=== PATIENT | female | born 1965 | race Caucasian/White ===

== ENCOUNTER 2017-07-16 13:42 | Emergency (ER) | payer BC ==
[~2017-07-16] VITALS: Ht 162.5 cm; Wt 72.1 kg
[~2017-07-16 13:42] MED LIST: BACTRIM DS 8001 TA1 PO; DAYPRO600 M1 PO; FLEXERIL10 MG PO; KEFLEX500 MG PO; NOVOLIN 701 UNIT/0.0 SC; VICODIN 5/500 505 MG PO; VICODIN ES 7501 TAB PO
[2017-07-16 14:23] LABS: BILIRUBIN 1+ (NEGATIVE); BLOOD 2+ (NEGATIVE); CLARITY CLEAR (CLEAR); COLOR YELLOW (YELLOW); GLUCOSE 3+ (NEGATIVE); KETONE 1+ (NEGATIVE); LEUKO ESTERASE TRACE (NEGATIVE); NITRITE NEGATIVE (NEGATIVE); PH 5.5 (5.0-9.0); SPECIFIC GRAVITY 1.015 (1.005-1.030); UROBILINOGEN 0.2 E.U./dl (0.2-1.0)
[2017-07-16 14:30] LABS: WBC TNTC wbc/hpf (0-5)
[2017-07-16 14:31] LABS: BACTERIA 4+; MUCOUS TRACE
[2017-07-16 15:07] LABS: BASO # 0.1 10*3/uL (0.0-0.1); BASO % 0.5 % (0.0-1.0); EOS # 0.1 10*3/uL (0.0-0.4); HEMATOCRIT 36.5 % (37.0-47.0); HEMOGLOBIN 12.1 g/dl (12.0-16.0); LYMPH # 1.4 10*3/uL (1.3-4.4); LYMPH % 12.4 % (27.0-41.0); MEAN CELL VOLUME 88.4 fl (81.0-99.0); MEAN CORPUSCULAR HGB 29.3 pg (27.0-31.0); MEAN CORPUSCULAR HGB CONC 33.2 g/dl (33.0-37.0); MEAN PLATELET VOLUME 8.8 fl (9.6-12.3); MONO # 1.3 10*3/uL (0.1-1.0); MONO % 11.5 % (3.0-9.0); NEUT # 8.1 10*3/uL (2.3-7.9); NEUT % 74.1 % (47.0-73.0); PLATELET COUNT AUTOMATED 484 10*3/uL (130-400); RED BLOOD COUNT 4.13 10*6/uL (4.10-5.10); RED CELL DISTRI WIDTH 12.8 % (0-14.5); WHITE BLOOD COUNT 10.9 10*3/uL (4.8-10.8)
[2017-07-16 15:21] LABS: ALBUMIN 2.3 gm/dl (3.1-4.5); ALKALINE PHOSPHATASE 112 U/L (45-117); BUN 26 mg/dl (7-24); CHLORIDE 95 mmol/L (98-107); CREATININE 1.13 mg/dL (0.55-1.02); LIPASE 70 U/L (73-393); POTASSIUM 4.7 mmol/L (3.5-5.1); SGOT/AST 17 IU/L (3-35); SGPT/ALT 13 U/L (12-78); SODIUM 130 mmol/L (136-145); TOTAL PROTEIN 7.7 gm/dL (6.4-8.2)
[2017-07-16] MEDS ORDERED: JARDIANCE25 MG PO (16:18)
[2017-07-16 19:00] VITALS: BP 140/90
== END 2017-07-16 19:04 | disposition short-term general hospital (02) ==
LOC: ED 13:42
PROVIDERS: Physician Assistant
DX: N30.80 Other cystitis without hematuria (principal); N12 Tubulo-interstitial nephritis, not specified as acute or chronic; R73.9 Hyperglycemia, unspecified; Z90.710 Acquired absence of both cervix and uterus; Z98.51 Tubal ligation status; Z98.890 Other specified postprocedural states; Z79.4 Long term (current) use of insulin; Z79.899 Other long term (current) drug therapy; Z88.8 Allergy status to other drugs, medicaments and biological substances

== ENCOUNTER → 2017-09-06 | Outpatient (CLI) | payer BC ==
[~2017-09-06] MED LIST changes: +JARDIANCE25 MG PO
[2017-09-06 11:33] LABS: HEMOGLOBIN 11.4 g/dl (12.0-16.0); MEAN CELL VOLUME 90.4 fl (81.0-99.0); MEAN CORPUSCULAR HGB 29.5 pg (27.0-31.0); MEAN CORPUSCULAR HGB CONC 32.6 g/dl (33.0-37.0); MEAN PLATELET VOLUME 8.8 fl (9.6-12.3); RED BLOOD COUNT 3.87 10*6/uL (4.10-5.10); WHITE BLOOD COUNT 5.4 10*3/uL (4.8-10.8)
[2017-09-06 12:01] LABS: ALBUMIN 2.8 gm/dl (3.1-4.5); ALKALINE PHOSPHATASE 92 U/L (45-117); BUN 18 mg/dl (7-24); CHLORIDE 100 mmol/L (98-107); CHOLESTEROL 178 mg/dL (<200); CREATININE 1.08 mg/dL (0.55-1.02); HDL CHOLESTEROL 55 mg/dl (40-60); LDL CHOLESTEROL 93 mg/dL (9-159); POTASSIUM 3.8 mmol/L (3.5-5.1); SGOT/AST 14 IU/L (3-35); SGPT/ALT 22 U/L (12-78); SODIUM 140 mmol/L (136-145); TOTAL PROTEIN 6.7 gm/dL (6.4-8.2); TRIGLYCERIDES 149 mg/dl (<150); VLDL CHOLESTEROL 30 mg/dL (6-40)
== END | disposition home or self-care (01) ==
LOC: LAB 11:13
PROVIDERS: Family Medicine
DX: J44.9 Chronic obstructive pulmonary disease, unspecified (principal); I51.7 Cardiomegaly; R60.9 Edema, unspecified; I10 Essential (primary) hypertension; E11.9 Type 2 diabetes mellitus without complications

== ENCOUNTER 2018-04-27 16:52 | Inpatient (IN) | payer BC ==
[~2018-04-27] VITALS: Ht 163 cm; Wt 79.5 kg
--- NOTE | ~2018-04-27 | DS ---
[place], [place] DISCHARGE SUMMARY NAME: [id number] UNIT #: [id number] ROOM: 427 DOCTOR: IRVING MORENO MD BIRTHDATE: [birth year] DOS: 05/11/2018 DISCHARGE DIAGNOSES: 1. Nephrotic syndrome, kidney biopsy results are still pending. There was suspicion of amyloidosis. The patient to follow up with Dr. Rivera, the community product specialist. 2. Severe hypoproteinemia and severe protein-calorie malnutrition. 3. Anemia of chronic disease and kidney failure. 4. Benign essential hypertension. 5. Severe peripheral volume overload. 6. Acute exacerbation of asthma. 7. Anasarca, improved with diuresis. 8. Ulceration of the plantar right foot, treated by Podiatry, healing. 9. Benign essential hypertension. 10. Type 2 diabetes mellitus. 11. History of ulcerative colitis. 12. History of spinal stenosis. 13. History of gastroesophageal reflux disease and esophagitis. 14. History of combined systolic-diastolic type congestive heart failure with left ventricular hypertrophy. HOSPITAL COURSE: The patient presented to the Emergency Department with increased shortness of breath, severe swelling in her lower extremities going all the way up to her pelvis and lower abdomen area. The patient looked chronically sick and pale. The patient was found to be chronically anemic and had 3-4+ leg and pedal hip edema going up to the abdomen and anasarca. The patient was severely hypoproteinemic and found to have nephrotic syndrome. Kidney biopsy has been performed and we are suspecting amyloidosis, but results are not back yet. Chronic kidney disease and kidney failure with nephrotic syndrome. Being evaluated by Dr. Rivera. Combined systolic-diastolic type CHF and LVH on echocardiogram. The patient diuresed with IV Bumex, Zaroxolyn. Benign essential hypertension. The patient now on clonidine, nifedipine started by Cardiology who followed her during her stay at the hospital and blood pressures have improved. The patient with acute exacerbation of asthma treated with corticosteroids, bronchodilators and the patient was taken for bronchoscopy by Dr. Forman, the wash driller helper. The patient to be continued on bronchodilators. Type 2 diabetes mellitus with glucocorticoid-induced hyperglycemia. Blood sugars were monitored and treated. Kidney biopsy performed for nephrotic syndrome and chronic kidney failure, results are pending. Amyloidosis was suspected. The patient to follow up with her kidney doctor, Dr. Rivera. LABORATORY DATA: BUN and creatinine 59 and 1.3. Sputum cultures positive for Staphylococcus aureus sensitive to tetracycline. [place], [place] DISCHARGE SUMMARY NAME: JOSH BLAKE I UNIT #: [id number] ROOM: 427 DOCTOR: JOSH GORDON,IRVING Edge BIRTHDATE: [birth year] DISCHARGE MANAGEMENT: Potassium chloride 20 mEq b.i.d., metolazone 5 mg b.i.d., Bumex 3 mg b.i.d., nifedipine 60 mg b.i.d., clonidine 0.2 mg b.i.d., doxycycline 100 mg b.i.d. for 1 week. Uncontrolled type 2 diabetes mellitus, the patient to be treated with Lantus insulin at home and follow up with her PCP, Dr. Ric Ray and the community product specialist, Dr. Rivera within a week. More than 1 hour time was spent on patient discharge. IRVING MORENO MD CM:DISCHARG [id number] IRVING MORENO MD 05/12/18 0108 interface
--- NOTE | ~2018-04-27 | PR ---
[place], [place] PROGRESS NOTE NAME: JOSH BLAKE I UNIT #: [id number] ROOM: 427 DOCTOR: IRVING MORENO MD BIRTHDATE: [birth year] DOS: 05/09/2018 SUBJECTIVE: The patient is doing well, improving with significant diuresis with Zaroxolyn, Bumex and albumin. PHYSICAL EXAMINATION: VITAL SIGNS: Blood pressure 162/66, heart rate 80 beats per minute, breathing 20 times per minute, temperature 98.1 degrees Fahrenheit. GENERAL APPEARANCE: The patient is alert and oriented x 3, in no visible distress. Obesity and anasarca with severe peripheral volume overload below the waist. HEENT AND NECK: Exam within normal limits. CARDIOVASCULAR SYSTEM: Heart rate is regular in rate and rhythm. S1 and S2 normally audible. LUNGS: Clear to auscultation. ABDOMEN: Soft, nontender. No obvious organomegaly. Bowel sounds are present. EXTREMITIES: Without significant cyanosis or edema. IMPRESSION: 1. Severe hypoproteinemia with severe peripheral volume overload with nephrotic syndrome, kidney biopsies have been performed. The patient recommended for 3 more days of diuresis with IV Bumex, Zaroxolyn and albumin. The patient's serum electrolytes are being monitored. 2. Anemia of chronic disease and kidney failure. Hemoglobin stable at 7.9. 3. Severe hypoalbuminemia and severe protein-calorie malnutrition from nephrotic syndrome and adult failure to thrive. 4. Benign essential hypertension, being treated and controlled. 5. Ulceration of the plantar right foot, being followed by Podiatry, improving ulceration of the plantar right foot. 6. Severe peripheral volume overload, improving as mentioned above. IRVING MORENO MD CM:PNTRANS [id number] IRVING MORENO MD 05/10/18 1246 interface
--- NOTE | ~2018-04-27 | PR ---
[place], [place] PROGRESS NOTE NAME: JOSH BLAKE I UNIT #: [id number] ROOM: 427 DOCTOR: IRVING MORENO MD BIRTHDATE: [birth year] DOS: 05/04/2018 SUBJECTIVE: The patient continues to improve slowly. Still has bilateral leg swelling, some shortness of breath. PHYSICAL EXAMINATION: GENERAL APPEARANCE: The patient is alert and oriented x 3, in no visible distress. HEENT AND NECK: Exam within normal limits. CARDIOVASCULAR SYSTEM: Heart rate is regular in rate and rhythm. S1 and S2 normally audible. LUNGS: Clear to auscultation. ABDOMEN: Soft, nontender. No obvious organomegaly. Bowel sounds are present. EXTREMITIES: 3-4+ lower extremity edema, improved from before. Pitting edema starting from her hips all the way down to her toes. Generalized weakness. IMPRESSION: 1. Chronic ulceration of the plantar right foot. The patient is being ruled out for osteomyelitis by Podiatry and an MRI was ordered. 2. Nephrotic syndrome. Workup is in progress. Diuresis has not been able to get rid of the edema. The patient with 5 grams of protein in 24 hours. 3. Type 2 diabetes mellitus with glucocorticoid-induced hyperglycemia. Blood sugars have improved. 4. Severe hypoproteinemia and hypoalbuminemia, severe protein-calorie malnutrition and adult failure to thrive. We are taking bedsore precautions. 5. Acute over chronic systolic type congestive heart failure, treated with diuresis. 6. Acute episode of asthma treated with corticosteroids by Dr. Forman. 7. Benign essential hypertension. Blood pressures are being monitored, treated and better controlled now. IRVING MORENO MD CM:PNTRANS [phone] IRVING MORENO MD 05/04/181931 interface
--- NOTE | ~2018-04-27 | WRIGHTHP ---
[place], [place] PATIENT HISTORY AND PHYSICAL EXAM [id number] UNIT #: [id number] ROOM: H2001 DOCTOR: IRVING MORENO MD BIRTHDATE: [birth year] DOS: 04/27/2018 HISTORY OF PRESENT ILLNESS: The patient is a 53-year-old female with a past medical history of: 1. Congestive heart failure. 2. History of type 2 diabetes mellitus. 3. History of hypothyroidism. 4. History of ulcerative colitis. 5. History of spinal stenosis. 6. History of asthma. 7. Benign essential hypertension. 8. GERD and esophagitis. The patient presented to the Emergency Department with increasing complaints of shortness of breath, increasing swelling in her lower extremities, chills for about 2 weeks. The patient was diagnosed as having acute congestive heart failure and recommended for admission and further management. The patient is still in the Emergency Department in the process of admission. She looks very weak and chronically sick. REVIEW OF SYSTEMS: RESPIRATORY: Increasing shortness of breath. GASTROINTESTINAL: No nausea, vomiting, diarrhea constipation. CARDIOVASCULAR SYSTEM: No chest pains or palpitations. FAMILY HISTORY: Noncontributory. SOCIAL HISTORY: Denies smoking cigarettes, alcohol and drug abuse. HOME MEDICATIONS: The patient takes Jardiance.. PHYSICAL EXAMINATION: GENERAL: Awake, alert, oriented, poor historian, in no visible distress, appears chronically sick, generalized weakness, VITAL SIGNS: Blood pressure dropped from 215/105 to 160 systolic over 90 diastolic, heart rate of 79 beats per minute, breathing 19 times per minute, afebrile. HEENT AND NECK: Extraocular movements are intact. Sclerae are anicteric. Oral mucosa is moist and clean. No obvious facial weakness. Neck is supple without any lymphadenopathy. No thyromegaly. No JVD. No carotid arterial bruits. LUNGS: Clear to auscultation. No wheezing. No rhonchi. CARDIOVASCULAR SYSTEM: Heart rate is regular in rate and rhythm. S1 and S2 normally audible. No significant murmur or any other abnormal cardiac sounds. ABDOMEN: Soft, nontender. No obvious organomegaly. Bowel sounds are present. No obvious herniation. EXTREMITIES: 4+ leg and pedal edema of whole lower extremities and lower abdomen, compatible with anasarca. CENTRAL NERVOUS SYSTEM: Alert and oriented x 3. Cranial nerves II-XII are intact. Speech is normal. The patient is able to move all extremities. Normal muscle strength. Deep tendon reflexes are equal on both sides. Plantars were [place], [place] PATIENT HISTORY AND PHYSICAL EXAM NAME: [facility] [id number] UNIT #: [id number] ROOM: [facility] DOCTOR: IRVING MORENO MD BIRTHDATE: [birth year] downgoing. LABORATORY DATA: Chest x-ray is showing congestive heart failure. Hemoglobin of 11. IMPRESSION: 1. The patient with acute congestive heart failure, to be further evaluated with an echocardiogram and the patient to be diuresed with IV Bumex and serum electrolytes, BUN and creatinine to be monitored. I will consult Cardiology to follow her. 2. Severe uncontrolled hypertension. The patient to be started on Norvasc and blood pressures monitored. 3. Anasarca and severe volume overload including pleural effusions, to be treated with leg elevation and diuresis and the patient's weight to be monitored. 4. Type 2 diabetes mellitus. Blood sugar is to be monitored and treated and patient to be kept on a no concentrated sweet diet. 5. Generalized weakness and adult failure to thrive. The patient to be started on physical therapy. 6. History of hypothyroidism. I will check her thyroid functions. 7. The patient appears to be chronically sick. 8. Severe protein-calorie malnutrition with an albumin level of only 1.5. The patient to be followed by Dietary. IRVING MORENO MD CM:HISPHYS:PATIENT HISTORY AND PHYSICAL EXAMINATION 55 15 IRVING MORENO MD 04/27/181913 interface
--- NOTE | ~2018-04-27 | PR ---
[place], [place] PROGRESS NOTE NAME: [facility]H [facility]LAKE I [facility] [id number] UNIT #: [id number] ROOM: 427 DOCTOR: SINDI GABRIEL MD BIRTHDATE: [birth year] DOS: 04/29/2018 SUBJECTIVE: The patient was seen at her bedside today for followup of congestive heart failure. She is a 53-year-old woman who states that last spring 2017, she was hospitalized at the [facility] with fluid retention. She did have ureteral stents placed and removed. She was evaluated by Dr. Reece and an echocardiogram was done; however, the results of this evaluation are not yet available to me. She states that since then, she has noticed worsening swelling of her lower extremities and abdomen along with increased shortness of breath. She presented to the Emergency Room where a chest x-ray showed cardiomegaly with mild bibasilar pulmonary vascular congestion and small effusions. Lower extremity venous ultrasound study showed no evidence for DVT. The patient did have clinical signs suggesting ascites and has been diuresed since then. PHYSICAL EXAMINATION: VITAL SIGNS: Today, her pulse is 80 and regular, blood pressure is 176/71. She is afebrile. She weighs 94.5 kg and has a body mass index of 35.6. NECK: Supple. She does have jugular distention when sitting upright. Carotids are full. LUNGS: Respirations are unlabored. Chest has decreased breath sounds with scattered rales, especially at the bases. She has mild presacral edema. HEART: Has a regular rhythm with a fourth heart sound. I did not hear a third heart sound. She has grade 2/6 holosystolic murmur at the apex. There is no diastolic murmur. The PMI cannot be felt. ABDOMEN: Distended with a fluid wave present. EXTREMITIES: Showed 3-4+ edema to above the knees bilaterally. I reviewed her echocardiogram today. Left ventricular size is normal with moderate concentric left ventricular hypertrophy. She has global left ventricular hypokinesis with an estimated ejection fraction between 40 and 45%. She has stage II diastolic relaxation abnormalities. She also has evidence for pulmonary hypertension with a right ventricular systolic pressure exceeding 60 mmHg. She has a small hemodynamically insignificant pericardial effusion and ascites fluid is noted on the subcostal views of the heart. LABORATORY DATA: Her electrolytes do show some renal insufficiency with a BUN of 34, creatinine of 1.26 and estimated GFR of 44. Liver function studies have not been obtained. Her INR is normal at 1.0. She is anemic with a hemoglobin of 9.6 and a white count of 11,800, platelet count is normal at 379,000. IMPRESSION: Marked fluid overload. She does show signs of left ventricular systolic and diastolic dysfunction with moderate concentric left ventricular hypertrophy. She does have pulmonary hypertension, which is likely secondary to left ventricular dysfunction. She does not show wall motion abnormalities to suggest that this is of an ischemic origin and most likely this does represent a cardiomyopathy. For now, we will diurese her as possible. It is interesting to note that her IVC diameter is small and therefore, it may be difficult to diurese her quickly. [place], [place] PROGRESS NOTE NAME: JOSH BLAKE I UNIT #: [id number] ROOM: 427 DOCTOR: SINDI GABRIEL MD BIRTHDATE: [birth year] We will obtain a comprehensive metabolic profile to assess liver studies and her albumin level. I likely will recommend that she be transferred to a tertiary care center such as [facility] where she can be evaluated by an advanced cardiac heart failure specialist to look for such things as amyloidosis, etc. I thank Dr. Iglesias for asking our advice regarding her care. SINDI GABRIEL MD CM:PNTRANS [phone] SINDI GABRIEL MD 04/30/18 1746 interface
--- NOTE | ~2018-04-27 | PR ---
[place], [place] PROGRESS NOTE NAME: JOSH BLAKE I UNIT #: [id number] ROOM: 427 DOCTOR: HONG RUIZ MD BIRTHDATE: [birth year] DOS: SUBJECTIVE: The patient is sitting up in bed, mildly short of breath. States that she is urinating, but not much. Denies having any chest pains or palpitations. OBJECTIVE: VITAL SIGNS: Blood pressure is 142/65, pulse of 77, respirations 18, temperature 97.5. LUNGS: Diminished breath sounds. HEART: Regular. ABDOMEN: Obese with anasarca extending all the way to the abdominal wall. EXTREMITIES: Again, significantly swollen, 3 to 4+ edema. ASSESSMENT AND PLAN: 1. The patient with proteinuria and hypoalbuminemia, most likely nephrotic syndrome. Workup is ordered including a renal biopsy on Friday. 2. Benign hypertension controlled with normal systolic function. 3. Patchy consolidation of left lower lobe as well as left upper lobe, add antibiotics. 4. Type 2 diabetes mellitus, non-insulin dependent. Blood sugars in the 500s. We will discontinue IV steroids and place her on coverage scale and we will convert the Lantus in the morning. HONG RUIZ MD CM:PNTRANS [id number] HONG RUIZ MD 05/03/18 0537 interface
--- NOTE | ~2018-04-27 | PR ---
[place], [place] PROGRESS NOTE NAME: JOSH BLAKE I UNIT #: [id number] ROOM: 427 DOCTOR: WILLOW PERKINS MDSHAISTA BIRTHDATE: [birth year] DOS: 05/01/2018 SUBJECTIVE: She has been noted reduction in symptoms of shortness of breath from yesterday. The coughing, which has been noted nonproductive also seem to be decreased. Denies symptoms of chest pain, fever or chills. The patient has been getting intravenous cefepime with diuretics. She has been noted severe hypoalbuminemia and also with the diagnosis of nephrotic syndrome. The patient per Nephrology services consultation. The patient was not noted any symptoms of chest pain. Denies abdominal pain, nausea or vomiting. She was comfortably sitting on the bed. Edema of the lower extremities remains persistent, at this time and severe. Denies any headache or diplopia. Remaining systems were reviewed. They were noted all negative. OBJECTIVE: GENERAL: The patient has been currently sitting on the side of the bed without acute distress this morning of assessment. VITAL SIGNS: For the patient recorded a normal temperature, respiratory rate 18, heart rate of 97-86, blood pressure was noted ranging between 176/83-180/88. Intake was recorded as a 1090 mL and output 550 mL. The pulse oxygen saturation on room air 93% saturation. HEENT: Examination shows head was atraumatic. Eyes nonicterus. NECK: Supple. CARDIOVASCULAR: S1, S2 is audible. LUNGS: The patient was noted with decreased breaths in the lungs with improvement in the wheezing from yesterday. ABDOMEN: Soft, nontender. Bowel sounds present. EXTREMITIES: Noted with persistent edema. VISIBLE SKIN: No lesions or rashes. MUSCULOSKELETAL: Without any acute deformities. CENTRAL NERVOUS SYSTEM: Cranial nerves 2-12 intact. LABORATORY DATA: No labs were done today. CT scan of the chest that was done with oral contrast yesterday. The patient was reviewed, shows evidence of severe anasarca noted. Evidence of small pleural fluid noted bilaterally larger on the right, which could be mild to moderate in the left. Area of compression atelectasis. There was no evidence of pulmonary area of consolidation; however, interstitial infiltration noted of the left lingula and the left upper lobe. Abdominal and pelvic CAT scan for the patient was reported without any acute intraabdominal pathologies. There was no pathological lymph node enlargement and the abdomen was seen. IMPRESSION: 1. The patient anasarca, bilateral pleural fluid, interstitial edema. 2. Acute exacerbation of bronchial asthma, nonproductive cough. 3. Pneumonia, appeared to be less likely. The patient current assessment, the patient at presentation. PLAN OF TREATMENT: The patient would be continued on the diuretic and albumin supplementation. The patient per Nephrology services follow the recommendation for the medical anasarca and congestive heart failure. Continue current dose of [place], [place] PROGRESS NOTE NAME: JOSH BLAKE I UNIT #: [id number] ROOM: 427 DOCTOR: WILLOW PERKINS MD,SHAISTA BIRTHDATE: [birth year] Solu-Medrol and bronchodilators. Other supportive therapy, plan of management care for patient with additional treatment changes will be done based on progression of the illness. Pleural fluid will be monitored. Thoracentesis not indicated will need to be done at the present time. Monitor the pleural fluid will be continued. Assessment and management for 2 days and yesterday, the patient was discussed with Dr. Iglesias personally. SHAISTA DAUGHERTY MD CM:PNTRANS [phone] SHAISTA PERKINS MD 05/01/18 1550 interface
--- NOTE | ~2018-04-27 | PR ---
[place], [place] PROGRESS NOTE NAME: JOSH BLAKE I UNIT #: [id number] ROOM: 427 DOCTOR: SINDI GABRIEL MD BIRTHDATE: [birth year] DOS: 05/04/2018 SUBJECTIVE: The patient was seen at her bedside today, 05/04/2018, for followup of her fluid overload state. She has biochemical evidence for nephrotic syndrome and this is likely the cause of her overall clinical appearance. The cause of her nephrosis is not yet known, but may be diabetic in origin. Other causes such as membranous nephropathy or possibly amyloid are being considered. The patient is pending a kidney biopsy, which is scheduled for tomorrow. PHYSICAL EXAMINATION: VITAL SIGNS: On exam today, her pulse is 78 and regular, blood pressure is 135/69. She is afebrile. She weighs 100.9 kg and has a body mass index of 38. NECK: Supple. She has minimal jugular distention with hepatojugular reflux. Carotids are full. LUNGS: Respirations are unlabored. She has decreased breath sounds at the bases, but no wheezes or rales. HEART: Regular rhythm with an S4 gallop, but no S3. ABDOMEN: Distended with a fluid wave. EXTREMITIES: Showed 3 to 4+ edema to above the knees. LABORATORY DATA: Sodium is 139, potassium 4.4, BUN 66, creatinine 2.09. Serologies are pending. IMPRESSION: 1. Massive fluid overload, most likely due to nephrotic syndrome. 2. Left ventricular hypertrophy with systolic and diastolic dysfunction associated with pulmonary hypertension. 3. Diabetes mellitus. PLAN: We will continue to follow the patient intermittently as the web assistant guides her diuresis and as we await the results of her kidney biopsy. As noted previously, her cardiac findings may be explained by amyloidosis and that may be the unifying diagnosis here. I thank Dr. Iglesias for asking our advice regarding her care. [place], [place] PROGRESS NOTE NAME: JOSH BLAKE I UNIT #: [id number] ROOM: 427 DOCTOR: SINDI GABRIEL MD BIRTHDATE: [birth year] SINDI GABRIEL MD CM:PNTRANS [id number] SINDI GABRIEL MD 05/05/18 1357 interface
--- NOTE | ~2018-04-27 | PR ---
[place], [place] PROGRESS NOTE NAME: JOSH BLAKE I UNIT #: [id number] ROOM: 427 DOCTOR: JOSH GORDON,IRVING Edge BIRTHDATE: [birth year] DOS: 05/07/2018 SUBJECTIVE: The patient with very slow improvement in her weakness. VITAL SIGNS: Blood pressure 144/54, breathing normally, afebrile, heart rate of 77 beats per minute. IMPRESSION: 1. The patient is status post kidney biopsy, getting worked up for nephrotic syndrome. She is LUIS negative. 2. Severe peripheral volume overload, hypoproteinemia and anasarca with 3 to 4+ edema below hips and lower extremities with very slow improvement with treatment and diuresis. The patient also has bilateral pleural effusions. 3. Acute exacerbation of asthma. The patient going for bronchoscopy by Dr. Forman. 4. Nephrotic syndrome with proteinuria and hypoalbuminemia. 5. Severe protein calorie malnutrition. 6. Ulceration of the plantar right foot, being followed by Podiatry, status post debridement. 7. Left ventricular hypertrophy with systolic/diastolic type combined acute over chronic congestive heart failure and pulmonary hypertension. 8. Benign essential hypertension, blood pressures being monitored, treated and controlled. IRVING MORENO MD CM:PNTRANS [id number] IRVING MORENO MD 05/08/18 0505 interface
--- NOTE | ~2018-04-27 | PR ---
[place], [place] PROGRESS NOTE NAME: JOSH BLAKE I UNIT #: [id number] ROOM: 427 DOCTOR: WILLOW PERKINS MD,SHAISTA BIRTHDATE: [birth year] DOS: 05/09/2018 PULMONARY PROGRESS NOTE SUBJECTIVE: She has been still noted coughing with intermittent sputum expectoration. She has been assessed and has a sputum culture done, which shows MSSA. She has not been noted symptoms of fever or chills. Denies symptoms of hemoptysis. The edema of the lower extremity is resolving. There were no skin lesions or rashes reported. Denies symptoms of headache. General weakness and fatigue were noted. The remaining systems reviewed were noted all negative. OBJECTIVE: VITAL SIGNS: Which have been recorded showed the temperature noted normal, respiratory rate of 16, heart rate 85, blood pressure 139/58. Pulse oxygen saturation on room air at rest was 91% saturation. HEENT: No acute change. NECK: Supple. CARDIOVASCULAR: S1 and S2 audible. LUNGS: Without any wheezing or crackles. ABDOMEN: Soft, nontender, obese. EXTREMITIES: The patient was noted with edema of the lower extremities, which has been gradually resolving. There were no cyanosis or clubbing. VISIBLE SKIN: No lesions or rashes. MUSCULOSKELETAL: Without any acute deformities. CENTRAL NERVOUS SYSTEM: Cranial nerves 2-12 intact. LABORATORY DATA: The culture of the sputum for the patient has been noted with findings of Staph aureus, which was noted with moderate amount as MSSA species. BMP today, BUN 62, creatinine 1.34, glucose 294. CBC this morning, WBC count was normal, hemoglobin 7.9, hematocrit 25.2. Negative fluid balance 8785 mL was noted. IMPRESSION: 1. The patient with progressive resolution of anasarca, on current intravenous Bumex drip. 2. Acute bronchitis with methicillin-susceptible Staphylococcus aureus. 3. The patient with bronchial asthma exacerbation, which has been noted stable. PLAN OF TREATMENT: Starting the patient on oral doxycycline for the current medical management of acute tracheobronchitis with MSSA. Continue other therapy, plan of management, care plan and treatment. Additional treatment changes will be recommended based on progression of the illness. [place], [place] PROGRESS NOTE NAME: JOSH BLAKE I UNIT #: [id number] ROOM: 427 DOCTOR: SHAISTA CLARK MD BIRTHDATE: [birth year] SHAISTA DAUGHERTY MD CM:ASHVIN [id number] SHAISTA PERKINS MD 05/10/18 0031 interface
--- NOTE | ~2018-04-27 | PR ---
[place], [place] PROGRESS NOTE NAME: JOSH BLAKE I UNIT #: [id number] ROOM: 427 DOCTOR: KATHERINE KUMAR DPM BIRTHDATE: [birth year] DOS: 05/08/2018 SUBJECTIVE: This patient is seen today for followup of right foot ulcer. She has no complaints of pain from her foot. She is still in the hospital because of volume overload. OBJECTIVE: Neurovascular status is unchanged. Small ulceration present plantar second metatarsal head, right foot that is getting smaller and has no signs of infection. No surrounding edema or erythema. No purulent drainage or malodor. Overall improvement in the ulceration noted without infection. ASSESSMENT: Improving ulceration, plantar right foot. PLAN: Evaluation and management. Continue with local wound care and offloading. Continue monitoring the foot. Continue to follow up the patient while she is in the hospital. KATHERINE KUMAR DPM CM:PNSHAHIDA [id number] KATHERINE KUMAR DPM 05/08/18 1217 interface
--- NOTE | ~2018-04-27 | PR ---
[place], [place] PROGRESS NOTE NAME: JOSH BLAKE I UNIT #: [id number] ROOM: 427 DOCTOR: HONG RUIZ MD BIRTHDATE: [birth year] DOS: SUBJECTIVE: The patient states that she has some nasal congestion. Otherwise, she feels fairly well. She thinks that her legs look a little bit better this morning. OBJECTIVE: VITAL SIGNS: Graphic trend shows a pressure of 136/62, pulse of 77, respirations 18, temperature 97.9. LUNGS: Diminished breath sounds. No wheezes, rales or rhonchi heard. HEART: Regular. ABDOMEN: Obese with significant anasarca noted, but there is some minimal improvement from yesterday. LABORATORY DATA: Blood culture shows no bacterial growth. ASSESSMENT AND PLAN: 1. Nephrotic syndrome. Workup is still in progress. The patient was given Bumex drip, which did not really do much. Urine protein 24-hour, she had a 5 gram protein output. 2. Type 2 diabetes mellitus, poorly controlled. Meds were adjusted and the blood sugars are much improved today. 3. Upper respiratory infection. A Flonase nasal spray will be started. HONG RUIZ MD CM:PNTRANS [phone] HONG RUIZ MD 05/04/18 0130 interface
--- NOTE | ~2018-04-27 | PR ---
[place], [place] PROGRESS NOTE NAME: JOSH BLAKE I UNIT #: [id number] ROOM: 427 DOCTOR: IRVING MORENO MD BIRTHDATE: [birth year] DOS: 05/05/2018 SUBJECTIVE: The patient continues to feel better, but she still has generalized weakness. OBJECTIVE: GENERAL APPEARANCE: The patient is alert and oriented x 3, in no visible distress. VITAL SIGNS: Blood pressure 156/79, breathing 20 times per minute, afebrile, heart rate of 93 beats per minute. HEENT AND NECK: Exam within normal limits. CARDIOVASCULAR SYSTEM: Heart rate is regular in rate and rhythm. S1 and S2 normally audible. LUNGS: Clear to auscultation. ABDOMEN: Soft, nontender. No obvious organomegaly. Bowel sounds are present. EXTREMITIES: 3-4+ leg and pedal edema below the hips, which is chronic for her and generalized weakness, right foot wounds. IMPRESSION: 1. Ulceration of the plantar right foot, being followed by Podiatry and treated. MRI of the right foot showed no osteomyelitis. 2. Nephrotic syndrome, workup in progress. The patient has significant proteinuria. 3. Anasarca and severe peripheral volume overload secondary to severe hypoproteinemia, severe protein-calorie malnutrition. The patient is being diuresed and receiving intravenous albumin by Nephrology, Dr. Rivera. 4. Acute episode of bronchial asthma and treated by Dr. Forman with corticosteroids, which caused some hyperglycemia. 5. Benign essential hypertension, being monitored and treated. 6. Severe protein-calorie malnutrition secondary to nephrotic syndrome. 7. Type 2 diabetes mellitus. Blood sugars elevated secondary to corticosteroids. 8. Chronic kidney disease, stage 3A. 9. Left ventricular hypertrophy with systolic and diastolic type chronic congestive heart failure along with pulmonary hypertension. [place], [place] PROGRESS NOTE NAME: JOSH BLAKE I UNIT #: [id number] ROOM: 427 DOCTOR: IRVING MORENO MD BIRTHDATE: [birth year] IRVING MORENO MD CM:PNTRANS [id number] [phone] IRVING MORENO MD 05/06/18 1506 interface
--- NOTE | ~2018-04-27 | PR ---
[place], [place] PROGRESS NOTE NAME: JOSH BLAKE I UNIT #: [id number] ROOM: 427 DOCTOR: WILLOW PERKINS MD,SHAISTA BIRTHDATE: [birth year] DOS: 05/03/2018 PULMONARY PROGRESS NOTE SUBJECTIVE: The patient was noted comfortable at this time, complaining of some nasal congestion. Denies symptoms of chest pain. Shortness of breath is noted to be improving. The cough has been noted mild to moderate and nonproductive. There were no symptoms of chest pain. Edema of the extremities is noted still present with partial reduction. OBJECTIVE: VITAL SIGNS: Normal temperature, respiratory rate 18, heart rate 77, blood pressure 136/62 this afternoon. The pulse oxygen saturation was 97% on room air. HEENT: No acute change. CARDIOVASCULAR: S1 and S2 audible. LUNGS: Noted clear of any wheezing today. ABDOMEN: Soft, obese. EXTREMITIES: Shows severe edema. LABORATORY DATA: BMP this morning, BUN 66, creatinine 2.09, glucose 206. IMPRESSION: 1. Anasarca picture with significant peripheral edema, predominantly in the lower portion of the body, abdominal wall and lower extremities. 2. Bronchial asthma with acute exacerbation, improving. PLAN OF MANAGEMENT: No changes from the pulmonary standpoint. Continue with the current therapy at this time as in progress. Monitor respiratory status. Diuresis and other therapy per Nephrology services. Continue Pulmicort Respules and bronchodilators for medical management of bronchial asthma at this time. SHAISTA DAUGHERTY MD CM:PNTRANS [id number] SHAISTA PERKINS MD 05/03/18 3178 interface
--- NOTE | ~2018-04-27 | CON ---
[place], [place] REPORT OF CONSULTATION NAME: JOSH BLAKE I UNIT #: [id number] ROOM: 427 DOCTOR: ALVIN COULTER MD BIRTHDATE: [birth year] DOS: 04/28/2018 CARDIOLOGY CONSULTATION REASON FOR CONSULTATION: CHF. HISTORY OF PRESENT ILLNESS: The patient is a 53-year-old patient with history of diabetes, asthma, hypertension, was presented to the Emergency Room for progressive shortness of breath as well as edema of the feet for the past few weeks. The patient stated that she gained about 50 pounds in the past couple of months. She was treated for heart failure in August 2016 when the patient had some kidney stones at that time. The patient denies any chest pain or palpitations. No dizziness, no PND, no orthopnea. No nausea, vomiting or diarrhea. No fever and chills. No headache. No tingling, numbness or weakness. No bladder or bowel symptoms. No double vision. REVIEW OF SYSTEMS: Review of the 10 system negative except as mentioned above. PAST MEDICAL HISTORY: 1. Hypertension. 2. Diabetes type 2. 3. Hypothyroidism. 4. Ulcerative colitis. 5. Spinal stenosis. 6. Acid reflux. 7. History of kidney stones. SURGICAL HISTORY: History of ureteral stent. SOCIAL HISTORY: The patient does not smoke or drink, does not use drugs. FAMILY HISTORY: Noncontributory. HOME MEDICATIONS: Reviewed. PHYSICAL EXAMINATION: VITAL SIGNS: Blood pressure 180/80, pulse 87, respiration 20, weight 207 pounds, BMI 35.4. GENERAL: Alert, comfortable. The patient in mild short of breath. HEAD AND NECK: Pupils are round and equal, no jaundice. Tongue was moist and pharynx was clear. NECK: Supple, no distended neck veins, no carotid bruit. CHEST: Symmetrical, nontender. LUNGS: A few scattered rhonchi and slightly diminished at bases. HEART: Regular rhythm, no S3. Grade 1/6 systolic murmur. ABDOMEN: Benign, nontender. Bowel sounds normal. EXTREMITIES: Showed 1-2+ pitting edema and distal pulses are palpable. SKIN: Warm and dry. No cyanosis, no clubbing. RECTAL: Deferred. GENITOURINARY: Deferred. [place], [place] REPORT OF CONSULTATION NAME: JOSH BLAKE I UNIT #: [id number] ROOM: 427 DOCTOR: MARYLIN GORDON,ALVIN BIRTHDATE: [birth year] NEUROLOGIC: The patient is alert and oriented. No focal neurologic deficit. REVIEW OF THE DIAGNOSTIC TESTS: EKG, labs and imaging studies reviewed. EKG normal sinus rhythm with LV hypertrophy. The pertinent labs including albumin 1.5; wbc count 11,800, hemoglobin 9.6, platelet 379,000; potassium 3.7, BUN 31, creatinine 1.1. IMPRESSION: 1. Acute on chronic heart failure, positive diastolic heart failure. 2. Poorly controlled hypertension. 3. Non-morbid obesity. 4. Diabetes type 2. 5. History of acid reflux. 6. Anemia. 7. Hypoalbuminemia. 8. Chronic kidney disease. 9. Generalized weakness. 10. Anasarca. RECOMMENDATIONS: 1. Continue IV Bumex and monitor daily weights and ins and outs as well as renal function. 2. If required, increase the amlodipine for blood pressure control. 3. The patient had some cardiac testing done. We will try to obtain those reports tomorrow from [facility]. 4. The compliance of medications and diet was discussed with her. 5. Further recommendation based on her symptoms and her recent cardiac testing. ALVIN COULTER MD CM:CONSTR:REPORT OF CONSULTATION [id number] 06/09/18 0904 interface
--- NOTE | ~2018-04-27 | PR ---
[place], [place] PROGRESS NOTE NAME: JOSH BLAKE I UNIT #: [id number] ROOM: 427 DOCTOR: IRVING MORENO MD BIRTHDATE: [birth year] DOS: 05/08/2018 SUBJECTIVE: The patient has severe peripheral volume overload. OBJECTIVE: GENERAL APPEARANCE: The patient is alert and oriented x 3, in no visible distress. VITAL SIGNS: Blood pressure 137/53, heart rate 79 beats per minute, breathing 18 times per minute, temperature 98 degrees Fahrenheit. HEENT AND NECK: Exam within normal limits. CARDIOVASCULAR SYSTEM: Heart rate is regular in rate and rhythm. S1 and S2 normally audible. LUNGS: Clear to auscultation. ABDOMEN: Soft, nontender. No obvious organomegaly. Bowel sounds are present. EXTREMITIES: Obesity and severe peripheral volume overload with edema extending from the hip down, 3-4+ slowly improving. IMPRESSION AND PLAN: 1. The patient has severe peripheral volume overload, hypoproteinemia, left ventricular hypertrophy with both systolic and diastolic type dysfunction and pulmonary hypertension. She is being diuresed with albumin and IV Bumex along with metolazone now. 2. Nephrotic syndrome and chronic kidney disease. BUN and creatinine of 68 and 1.3. Normal serum electrolytes. The patient is being followed by Nephrology. 3. Anemia with hemoglobin of 8. 4. Severe hypoalbuminemia and hypoproteinemia with advanced protein-calorie malnutrition related to nephrotic syndrome. Overall poor health. 5. Benign essential hypertension. Blood pressure is monitored, treated and controlled and they are staying normal now. 6. Ulceration of the plantar right foot debrided by Podiatry and is being followed. 7. Serology workup on her nephrotic syndrome was negative. Biopsy results are still pending. [place], [place] PROGRESS NOTE NAME: JOSH BLAKE I UNIT #: [id number] ROOM: 427 DOCTOR: IRVING MORENO MD BIRTHDATE: [birth year] IRVING MORENO MD CM:PNTRANS IRVING MORENO MD 05/08/18 1000 interface
--- NOTE | ~2018-04-27 | PR ---
[place], [place] PROGRESS NOTE NAME: JOSH BLAKE I UNIT #: [id number] ROOM: 427 DOCTOR: WILLOW PERKINS MD,SHAISTA BIRTHDATE: [birth year] DOS: 05/07/2018 SUBJECTIVE: The patient remains comfortable at this time. She has a biopsy of the kidney done yesterday for further assessment and current kidney disease. She has been noted with symptoms of chest pain. Cough has been noted intermittently with small amount of sputum expectoration. Continue Mucinex and flutter valve use. Denies any acute shortness of breath at rest. OBJECTIVE: VITAL SIGNS: Normal temperature, respiratory rate 20, heart rate 84, blood pressure 144/54. The pulse oxygen saturation on room air 91% saturation. HEENT: No acute change. NECK: Supple. CARDIOVASCULAR: S1, S2 audible. LUNGS: The patient was noted without any wheezing or crackles at the present time. ABDOMEN: Soft, nontender, bowel sounds present. LABORATORY DATA: BMP this morning, BUN 69, creatinine 1.30. CBC this morning, WBC count 12.6, hemoglobin 7.8. IMPRESSION: 1. The patient with acute bronchitis with resolving acute bronchial asthma exacerbation. 2. Pleural fluid with anasarca as well. PLAN OF THERAPY: Follow up the results of the sputum culture. The patient has been noted negative for last 24 hours and follow the recommendation by the Nephrology services. SHAISTA DAUGHERTY MD CM:PNTRANS [phone] SHAISTA PERKINS MD 06/09/18 0908 interface
--- NOTE | ~2018-04-27 | EKG ---
[place], [place] ELECTROCARDIOGRAM REPORT NAME: JOSH BLAKE I UNIT #: [id number] ROOM: 427 DOCTOR: ANNIE DRAFT REPORT BIRTHDATE: [birth year] [facility] Test Date: 2018-04-27 Test Time: 17:23:17 Pat Name: JOSH BLAKE Department: Room: 427 Gender: F Wic Site Coordinator: MICHELINE : 1965 Requested By: TESFAYE CASTELLANO Order Number: [id number] Reading MD: Anna Irizarry MD Measurements Intervals Hulen Rate: 82 P: 62 ND: 146 QRS: -7 QRSD: 110 T: 44 QT: 422 QTc: 493 Interpretive Statements Sinus rhythm Left ventricular hypertrophy Borderline prolonged QT interval Baseline wander in lead(s) V2 Electronically Signed On 04-28-2018 11:52:53 PST by Anna Irizarry MD CM:EKGRPT:ELECTROCARDIOGRAM REPORT [id number] TESFAYE CASTELLANO EPIPHANY DRAFT REPORT TESFAYE CASTELLANO
--- NOTE | ~2018-04-27 | PR ---
[place], [place] PROGRESS NOTE NAME: JOSH BLAKE I UNIT #: [id number] ROOM: 427 DOCTOR: SHAISTA CLARK MD BIRTHDATE: [birth year] DOS: 05/04/2018 PULMONARY PROGRESS NOTE SUBJECTIVE: She has been noted comfortable at this time, resting with partial reduction of edema of the lower extremities was noted. Denies symptoms of chest pain. Cough has been noted more productive at the present time and she has been noted without much sputum expectoration most of the time. She denies symptoms of wheezing. Denies symptoms of chest pain. OBJECTIVE: VITAL SIGNS: Which have been recorded shows normal temperature, respiratory rate of 20, heart rate of 63, blood pressure 130/57. Pulse oxygen saturation recorded as 97% saturation at rest on room air. HEENT: Shows head was atraumatic, eyes nonicterus. NECK: Supple. LUNGS: Decreased breath sounds in the lungs bilaterally without any wheezing this morning. ABDOMEN: Seen with obesity and anasarca picture. EXTREMITIES: Still show significant severe edema of bilateral lower extremities. IMPRESSION: 1. Peripheral edema with anasarca with congestive heart failure, diastolic dysfunction. 2. The patient with resolving bronchial asthma. 3. Current chest congestion with coughing, but there was no sputum expectoration. PLAN OF TREATMENT: Start the patient on doxycycline at ____ mg p.o. b.i.d. and also flutter valve use. Sputum for Gram stain culture was ordered. Chest x-ray will be repeated as tolerated to assess for interval development of any new problems. [place], [place] PROGRESS NOTE NAME: JOSH BLAKE I UNIT #: [id number] ROOM: 427 DOCTOR: SHAISTA CLARK MD BIRTHDATE: [birth year] SHAISTA DAUGHERTY MD CM:PNTRANS [id number] SHAISTA PERKINS MD 05/04/18 4096 interface
--- NOTE | ~2018-04-27 | PR ---
[place], [place] PROGRESS NOTE NAME: JOSH BLAKE I UNIT #: [id number] ROOM: 427 DOCTOR: WILLOW PERKINS MD,SHAISTA BIRTHDATE: [birth year] DOS: 05/11/2018 SUBJECTIVE: The patient was still reporting coughing, which has been noted intermittent at times, nonproductive, but not noted any worse than previously. Denies symptoms of chest pain. The patient denies symptoms of shortness of breath was continued on diuretic therapy has been noted effective to reduce the anasarca and congestion and edema of the extremities. OBJECTIVE: VITAL SIGNS: For the patient, which have been recorded showed the temperature was noted as normal. The respiratory rate is 16, heart rate of 88, blood pressure 162/84, and pulse oxygen saturation recorded on room air 91-92% saturation of oxygen. HEENT: Examination shows head was atraumatic. Eyes nonicterus. CARDIOVASCULAR: S1, S2 is audible. LUNGS: Clear. ABDOMEN: Soft. EXTREMITIES: The patient was noted resolving edema with the resolution noted incomplete, but marked improvement continued with the edema resolution. IMPRESSION: 1. Resolving anasarca with peripheral edema, congestive heart failure. 2. Resolving acute bronchitis with Staphylococcus aureus. 3. Improving acute exacerbation of bronchial asthma. PLAN OF MANAGEMENT: No changes in plan of care at this time. Continue the patient's current therapy as previously. Usual care, other supportive plan of management care and therapies. SHAISTA DAUGHERTY MD CM:ASHVIN [phone] SHAISTA PERKINS MD 05/11/18 2241 interface
--- NOTE | ~2018-04-27 | PR ---
[place], [place] PROGRESS NOTE NAME: [facility]LAKE I [id number] UNIT #: [id number] ROOM: 427 DOCTOR: SINDI GABRIEL MD BIRTHDATE: [birth year] DOS: SUBJECTIVE: The patient was seen at her bedside today on 04/30/2018 for followup of her marked total body fluid overload. She is diuresing very slowly. In the last 24 hours, I and O indicates that her fluid balance is negative 200 mL and since she has been hospitalized, she has only lost about 0.5 kilogram. Despite this, her BUN and creatinine levels are rising. On admission, her BUN was 31 and is now 35. Her creatinine was 1.1 and is now 1.33. The patient still feels weak and breathless. She still complains of swelling in her arms, legs and abdomen as well as in her left breast. She does admit that she tends to lay on her left side. PHYSICAL EXAMINATION: VITAL SIGNS: Today, her pulse is 77 and regular, blood pressure is 170/88. She is afebrile. She weighs 93.6 kilograms. NECK: Supple. She has no jugular distention. She does have mild hepatojugular reflux. Carotids are full. LUNGS: Respirations are unlabored. She has decreased breath sounds with few rales at the bases bilaterally. HEART: Has a regular rhythm. She has a fourth heart sound. I could not hear a third heart sound. The PMI is not displaced. ABDOMEN: Distended with a fluid wave. EXTREMITIES: Showed 3+ to 4+ edema above the knees. LABORATORY DATA: Urinalysis does show that she has 3+ proteinuria. Complete metabolic profile today shows that her total bilirubin is low at 0.1. SGOT, SGPT and alkaline phosphatase are all normal; however, her total protein and albumin are both low at 6.1 and 1.3 respectively. Her echocardiogram done yesterday does show normal left ventricular size with moderate concentric left ventricular hypertrophy. She has global left ventricular hypokinesis with an estimated ejection fraction of about 40-45%. She has grade 2 diastolic dysfunction. She also has Doppler evidence for severe pulmonary hypertension. Right ventricular systolic pressure is over 60 mmHg. Her right ventricle does appear to be normal in size with thickening of the right ventricular free wall. Right ventricular function appears to be impaired. She does show a small pericardial effusion and ascites on the echocardiogram. IMPRESSION: 1. Total body fluid overload with ascites and peripheral edema along with small pleural effusions and a small pericardial effusion. 2. Marked proteinuria suggesting the possibility of nephrotic syndrome. 3. Hypoalbuminemia. 4. Pulmonary hypertension. I think that one of her big problems is likely to be nephrotic syndrome, which has resulted in severe hypertension and possibly hypertensive heart disease. PLAN: For now, we will continue her diuresis, but check a 24-hour urine for [place], [place] PROGRESS NOTE NAME: JOSH BLAKE I UNIT #: [id number] ROOM: 427 DOCTOR: SINDI GABRIEL MD BIRTHDATE: [birth year] protein and creatinine along with a renal ultrasound. I think that nephrology opinion would be very helpful in her ongoing management as well. If control of her blood pressure does not result in improvement of her ascites and pulmonary hypertension, she may require evaluation by the advanced heart failure specialist and right heart catheterization as well, but this would be a future goal. I thank Dr. Iglesias for asking our advice regarding the patient's care. SINDI GABRIEL MD CM:ASHVIN [id number] SINDI GABRIEL MD 05/01/18 0541 interface
--- NOTE | ~2018-04-27 | PR ---
[place], [place] [id number] UN[facility] #: [id number] ROOM: 427 DOCTOR: SINDI GABRIEL MD BIRTHDATE: [birth year] DOS: 05/01/2018 CARDIOLOGY PROGRESS NOTE SUBJECTIVE: The patient was seen at her bedside today, 05/01/2018, for followup of fluid retention and an abnormal echocardiogram. I did discuss her case today with Dr. Rivera. The patient does have severe proteinuria and hypoalbuminemia. This is very likely to be due to nephrotic syndrome. As discussed with Dr. Rivera, the most common causes for this would be either intrinsic renal disease or diabetic nephropathy. When I reviewed her echocardiogram, she did have left ventricular systolic and diastolic dysfunction with left ventricular hypertrophy along with pulmonary hypertension. I wonder if amyloidosis may also present in this fashion. The patient is diuresing very slowly and remains massively fluid overloaded. She denies any chest pain, but is still dyspneic with minor exertion. She does give an interesting history of severe orthostatic hypotension, which has been present for several years, but recently improved. Her orthostatic hypotension may have improved with the hypertension and fluid retention that she has experienced with her nephrotic syndrome. PHYSICAL EXAMINATION: VITAL SIGNS: Her pulse is 97 and regular, blood pressure is 180/88. She is afebrile. NECK: Supple. She does have mild jugular distention to the mid neck with hepatojugular reflux. Carotids are full. LUNGS: Respirations are unlabored. She has decreased breath sounds at the bases. HEART: Has a regular rhythm with an S4 gallop. I did not hear an S3. She has a grade 2/6 holosystolic murmur at the apex. ABDOMEN: Soft with a fluid wave. EXTREMITIES: Show 3-4+ edema. IMPRESSION: 1. Massive fluid overload, possibly due to nephrotic syndrome. 2. Left ventricular hypertrophy with systolic and diastolic dysfunction along with pulmonary hypertension. 3. Diabetes mellitus. PLAN: I have discussed her case with her atomic physics teacher. They are planning a renal biopsy within the next week. If she does have amyloidosis, it should certainly show up on the renal biopsy and that may be a unifying diagnosis for all of her multisystem problems. For now, we will continue to defer diuresis to her atomic physics teacher and continue to follow her with her other physicians. We thank Dr. Iglesias for asking our advice regarding her care. [place], [place] PROGRESS NOTE NAME: JOSH BLAKE I UNIT #: [id number] ROOM: 427 DOCTOR: SINDI GABRIEL MD BIRTHDATE: [birth year] SINDI GABRIEL MD CM:PNTRANS [phone] SINDI GABRIEL MD 05/02/18 0140 interface
--- NOTE | ~2018-04-27 | PR ---
[place], [place] PROGRESS NOTE NAME: JOSH BLAKE I UNIT #: [id number] ROOM: 427 DOCTOR: WILLOW PERKINS MD,SHAISTA BIRTHDATE: [birth year] DOS: 05/06/2018 SUBJECTIVE: She has been currently comfortably resting on the bed. Still noted significant edema in the lower extremity. Denies symptoms of chest pain or any hemoptysis. The cough has been noted intermittently which was reported mild to moderate, no sputum expectoration. She underwent a kidney biopsy today which of ordered Nephrology services. OBJECTIVE: VITAL SIGNS: Normal temperature, respiratory rate 20, heart rate 89, blood pressure 152/74. Pulse oxygen saturation recorded as 96% on room air. HEAD, EYES, EARS, NOSE, AND THROAT: No acute change. NECK: Supple. CARDIOVASCULAR SYSTEM: S1, S2 is audible. LUNGS: Decreased breath sounds lower portion of the lungs. ABDOMEN: Soft, nontender. Bowel sounds present. EXTREMITIES: Noted without any acute new changes edema of the lower extremity is still noted 3+. IMPRESSION: 1. Anasarca with nephrotic syndrome. 2. Bilateral pleural fluid secondary to the current kidney disease as well and congestive heart failure. 3. Bronchial asthma, which has been noted stable at this time with nonproductive cough. PLAN OF MANAGEMENT: No changes in plan of care from the pulmonary standpoint. Continue current therapy as in progress. Usual care, other supportive plan of management and treatments. SHAISTA DAUGHERTY MD CM:SAHVIN [phone] SHAISTA PERKINS MD 05/06/18 1252 interface
--- NOTE | ~2018-04-27 | PR ---
[place], [place] PROGRESS NOTE NAME: JOSH BLAKE I UNIT #: [id number] ROOM: 427 DOCTOR: WILLOW PERKINS MD,SHAISTA BIRTHDATE: [birth year] DOS: 05/10/2018 PULMONARY PROGRESS NOTE SUBJECTIVE: The patient continues to do well. Coughing has been noted intermittently. Started on doxycycline for Staph aureus tracheobronchitis. Denies any wheezing. OBJECTIVE: VITAL SIGNS: Which have been recorded show normal temperature, respiratory rate 20, heart rate 74, blood pressure 152/78. Pulse oxygen saturation was recorded as 94% at rest on room air. HEENT: Shows head was atraumatic, eyes nonicterus. NECK: Supple. CARDIOVASCULAR: S1 and S2 audible. LUNGS: Without wheeze or crackles. ABDOMEN: Soft and nontender. EXTREMITIES: Continued resolving edema. IMPRESSION: 1. Acute tracheobronchitis, Staph aureus, with resolving acute exacerbation of bronchial asthma. 2. Improving anasarca with peripheral edema progressively. Continued on the diuretic therapy, which is noted effective with additional 5 liters of negative fluid balance noted in the last 24 hours. BUN and creatinine remain stable. PLAN OF THERAPY: No change in the plan of care. Continue antibiotics, bronchodilators, diuretics, other treatment and plan of management. SHAISTA DAUGHERTY MD CM:PNTRANS [phone] SHAISTA PERKINS MD 05/10/18 8966 interface
--- NOTE | ~2018-04-27 | PR ---
[place], [place] PROGRESS NOTE NAME: JOSH BLAKE I UNIT #: [id number] ROOM: 427 DOCTOR: KATHERINE KUMAR DPM BIRTHDATE: [birth year] DOS: 05/11/2018 SUBJECTIVE: This patient is seen for followup of right foot ulcer. The patient has no complaints in regards to her foot. Denies any pain in the right foot. OBJECTIVE: Neurovascular status is unchanged, still a small ulceration present plantar second metatarsal head that shows no signs of infection. No purulent drainage or malodor, no surrounding edema or erythema. Pedal deformity is noted. Ulceration improving. ASSESSMENT: Improving ulceration, right foot. PLAN: Evaluation and management. Recommend continuing with local wound care and wearing a surgical shoe. Continue to follow while in the hospital. KATHERINE KUMAR DPM CM:PNTRANS [phone] KATHERINE KUMAR DPM 05/12/18 0241 interface
--- NOTE | ~2018-04-27 | PR ---
[place], [place] PROGRESS NOTE NAME: JOSH BLAKE I UNIT #: [id number] ROOM: 427 DOCTOR: IRVING MORENO MD BIRTHDATE: [birth year] DOS: SUBJECTIVE: The patient is still quite weak with slow improvement. OBJECTIVE: VITAL SIGNS: Blood pressure 152/78, heart rate 74 beats per minute, breathing 20 times per minute, temperature 98.2 degrees Fahrenheit. GENERAL APPEARANCE: The patient is alert and oriented x 3, in no visible distress. HEENT AND NECK: Exam within normal limits. CARDIOVASCULAR SYSTEM: Heart rate is regular in rate and rhythm. S1 and S2 normally audible. LUNGS: Clear to auscultation. ABDOMEN: Soft, nontender. No obvious organomegaly. Bowel sounds are present. EXTREMITIES: Without significant cyanosis or edema. IMPRESSION: 1. Nephrotic syndrome and chronic kidney failure. Biopsy results are pending. Nephrology following. 2. Anemia of chronic disease and kidney failure. Hemoglobin stable at 8.1. 3. Slow and progressive resolution of anasarca and fluid volume overload with Bumex infusion. 4. Acute bronchitis and acute moderate exacerbation of asthma with susceptible Staphylococcus aureus. 5. Ulceration of plantar right foot debrided by Podiatry who is following and is healing. 6. Benign essential hypertension, being treated and monitored and controlled. Blood pressure staying elevated. 7. Severe hypoalbuminemia and hypoproteinemia with advanced protein-calorie malnutrition related to nephrotic syndrome. IRVING MORENO MD CM:PNTRANS [phone] IRVING MORENO MD 05/11/18 1805 interface
--- NOTE | ~2018-04-27 | PR ---
[place], [place] PROGRESS NOTE NAME: JOSH BLAKE I UNIT #: [id number] ROOM: 427 DOCTOR: SINDI GABRIEL MD BIRTHDATE: [birth year] DOS: 05/07/2018 CARDIOLOGY PROGRESS NOTE SUBJECTIVE: The patient was seen at her bedside today 05/07/2018 for followup of her massive fluid overload. Her evaluation thus far has been diagnostic of protein wasting and nephrotic syndrome. An echocardiogram on 04/29/2018 showed normal left ventricular size with an ejection fraction of 40-45% and stage 2 diastolic dysfunction. The left atrium was moderately enlarged. She did have evidence for pulmonary hypertension with RVSP greater than 60 mmHg, but the IVC was normal in size with normal respiratory variation. She did undergo a kidney biopsy yesterday and those results are pending. She is on a Bumex drip and diuresed 3.5 liters in the last 24 hours. PHYSICAL EXAMINATION: VITAL SIGNS: Today, her pulse is 77 and regular, blood pressure is 144/54. NECK: Supple. She has no jugular distention. Carotids are full. LUNGS: Respirations are unlabored. Her chest has decreased breath sounds at the bases. HEART: Has a regular rhythm with an S4 gallop, but no S3. ABDOMEN: Distended with a fluid wave. EXTREMITIES: Show 3-4+ edema to above the knees. LABORATORY DATA: Sodium yesterday was 140 with a potassium of 4.4, BUN was 70 and creatinine was 1.37. IMPRESSION: 1. Marked fluid overload due to nephrotic syndrome and protein wasting. 2. Left ventricular hypertrophy with systolic and diastolic dysfunction associated with pulmonary hypertension. 3. Diabetes mellitus. PLAN: At this point, her management is mostly going to be related to fluid control. This is being handled by her marketing production coordinator. I am concerned given the appearance of her heart that she may have amyloidosis and this will be further documented once the kidney biopsy has been analyzed. For now, Cardiology will sign off, but we remain available to see her as needed. We thank Dr. Iglesias for asking our advice regarding her care. [place], [place] PROGRESS NOTE NAME: JOSH BLAKE I UNIT #: [id number] ROOM: 427 DOCTOR: SINDI GABRIEL MD BIRTHDATE: [birth year] SINDI GABRIEL MD CM:PNTRANS [phone] SINDI GABRIEL MD 05/08/18 0732 interface
--- NOTE | ~2018-04-27 | PR ---
[place], [place] PROGRESS NOTE NAME: JOSH BLAKE I UNIT #: [id number] ROOM: 427 DOCTOR: IRVING MORENO MD BIRTHDATE: [birth year] DOS: 04/30/2018 SUBJECTIVE: The patient continues to be diuresed with IV Bumex for severe peripheral volume overload. IMPRESSION AND PLAN: 1. Left ventricular systolic and diastolic dysfunction with concentric left ventricular hypertrophy. 2. Acute over chronic systolic type congestive heart failure. 3. Probable nephrotic syndrome proteinuria, being evaluated for 24-hour urinary protein estimation. 4. Anasarca, severe volume overload and hyponatremia. 5. Type 2 diabetes mellitus. Blood sugars appear to be reasonably controlled. 6. Severe protein calorie malnutrition. The patient is working with Dietary. 7. Hypothyroidism, evaluated with TSH, which is normal and free T4 is also within normal range. IRVING MORENO MD CM:PNTRANS [phone] IRVING MORENO MD 05/01/18 1342 interface
--- NOTE | ~2018-04-27 | PR ---
[place], [place] PROGRESS NOTE NAME: JOSH BLAKE I UNIT #: [id number] ROOM: 427 DOCTOR: IRVING MORENO MD BIRTHDATE: [birth year] DOS: 05/06/2018 SUBJECTIVE: The patient has advanced adult failure to thrive, continues to improve. She is status post kidney biopsy. PHYSICAL EXAMINATION: VITAL SIGNS: Blood pressure 152/74, heart rate 88 beats per minute, breathing 20 times per minute and temperature 98 degrees Fahrenheit. GENERAL APPEARANCE: The patient is alert and oriented x 3, in no visible distress except for generalized weakness. HEENT AND NECK: Exam within normal limits. CARDIOVASCULAR SYSTEM: Heart rate is regular in rate and rhythm. S1 and S2 normally audible. LUNGS: Clear to auscultation. ABDOMEN: Soft, nontender. No obvious organomegaly. Bowel sounds are present. EXTREMITIES: Severe peripheral volume overload with severe leg and pedal edema going all the way to lower abdomen and her hips and right foot wound. IMPRESSION: 1. Massive fluid volume overload and nephrotic syndrome being treated with IV albumin and diuresis by Dr. Rivera. 2. Type 2 diabetes mellitus. Blood sugars being monitored and treated. 3. Corticosteroid-induced hyperglycemia. Dr. Forman is managing the corticosteroids. 4. Acute exacerbation of asthma, being followed and treated by Dr. Forman. 5. Benign essential hypertension. Blood pressure is being monitored and controlled. 6. Acute over chronic systolic type congestive heart failure, treated with diuresis. 7. Severe hypoproteinemia and hypoalbuminemia and severe protein-calorie malnutrition secondary to nephrotic syndrome and adult failure to thrive. 8. Chronic ulceration of the plantar right foot with no obvious signs of osteomyelitis on MRI. [place], [place] PROGRESS NOTE NAME: JOSH BLAKE I UNIT #: [id number] ROOM: 427 DOCTOR: IRVING MORENO MD BIRTHDATE: [birth year] IRVING MORENO MD CM:PNTRANS [phone] IRVING MORENO MD 05/07/18 0141 interface
--- NOTE | ~2018-04-27 | PR ---
[place], [place] PROGRESS NOTE NAME: JOSH BLAKE I UNIT #: [id number] ROOM: 427 DOCTOR: WILLOW PERKINS MD,SHAISTA BIRTHDATE: [birth year] DOS: 05/05/2018 SUBJECTIVE: The patient has been noted comfortable this morning, resting, sitting on the bed. She has not been noted symptoms of chest pain. She does have some symptoms of cough, which has been still noted nonproductive. OBJECTIVE: VITAL SIGNS: For the patient which were recorded showed the temperature was noted as normal, respiratory rate 20, heart rate of 88, blood pressure 143/68 to 149/77. Pulse oxygen saturation recorded on room air was 93% saturation. HEENT: Examination shows head was atraumatic. Eyes: No icterus. NECK: Supple. CARDIOVASCULAR: S1, S2 is audible. LUNGS: Decreased breath sounds at lung bases. ABDOMEN: Soft and obese. EXTREMITIES: Shows significant severe edema. LABORATORY DATA: Chest x-ray that was done yesterday shows small bilateral pleural fluid. There was no evidence of pulmonary venous congestion. IMPRESSION: 1. The patient with persistent anasarca. The patient with edema mostly in the lower part of the body with bilateral pleural fluid, congestive heart failure, diastolic dysfunction and others. C2. hest congestion. R3. esolving bronchial asthma. PLAN OF TREATMENT: Ordered the sputum for Gram stain and culture for the patient at this time. Continue other therapy, plan of management, care plan of treatment and therapies. SHAISTA DAUGHERTY MD CM:PNTRANS [phone] SHAISTA PERKINS MD 06/09/18 0906 interface
--- NOTE | ~2018-04-27 | PR ---
[place], [place] PROGRESS NOTE NAME: JOSH BLAKE I UNIT #: [id number] ROOM: 427 DOCTOR: IRVING MORENO MD BIRTHDATE: [birth year] DOS: 04/28/2018 SUBJECTIVE: The patient's breathing has slightly improved as compared to yesterday. OBJECTIVE: VITAL SIGNS: Blood pressure 158/81, heart rate of 96 beats per minute, breathing 20 times per minute, afebrile. GENERAL APPEARANCE: The patient is alert and oriented x 3, in no visible distress. HEENT AND NECK: Exam within normal limits. CARDIOVASCULAR SYSTEM: Heart rate is regular in rate and rhythm. S1 and S2 normally audible. LUNGS: Clear to auscultation. ABDOMEN: Soft, nontender. No obvious organomegaly. Bowel sounds are present. EXTREMITIES: Obesity, severe 4+ leg and pedal edema and generalized weakness. IMPRESSION: 1. The patient with acute congestive heart failure. Echocardiogram is pending. Cardiology to follow. The patient is being diuresed with IV Bumex. 2. Severe uncontrolled hypertension. Blood pressure is still elevated, so I will increase the dose of Norvasc that I started yesterday. 3. Anasarca and severe volume overload with hypoproteinemia to be treated with diuresis. 4. Type 2 diabetes mellitus. Blood sugar was 160. 5. Hypothyroidism. Thyroid functions are pending. 6. The patient has been chronically sick for many years. 7. Severe protein calorie malnutrition. The patient is working with dietary. Albumin level was only 1.5, is chronic malnutrition. IRVING MORENO MD CM:PNTRANS [phone] IRVING MORENO MD 04/29/18 0303 interface
--- NOTE | ~2018-04-27 | PR ---
[place], [place] PROGRESS NOTE NAME: JOSH BLAKE I UNIT #: [id number] ROOM: 427 DOCTOR: IRVING MORENO MD BIRTHDATE: [birth year] DOS: 05/01/2018 SUBJECTIVE: The patient with generalized weakness and adult failure to thrive. OBJECTIVE: GENERAL APPEARANCE: The patient is alert and oriented x 3, in no visible distress. Generalized weakness. VITAL SIGNS: Blood pressure 180/88, heart rate 97 beats per minute, breathing 18 times per minute, temperature of 98 degrees Fahrenheit. HEENT AND NECK: Exam within normal limits. CARDIOVASCULAR SYSTEM: Heart rate is regular in rate and rhythm. S1 and S2 normally audible. LUNGS: Clear to auscultation. ABDOMEN: Soft, nontender. No obvious organomegaly. Bowel sounds are present. EXTREMITIES: Anasarca with severe peripheral volume overload, leg and pedal edema. IMPRESSION: 1. Benign essential hypertension with severely elevated blood pressures. The patient is noted to be on losartan and clonidine. Cardiology is following. I will increase the dose of clonidine. 2. Nephrotic syndrome. The patient did require kidney biopsy for further diagnosis and management. The patient is followed by Nephrology. 3. Acute episode of asthma, now being treated with Solu-Medrol by Dr. Forman, the auto emissions technician. 4. Acute over chronic systolic type congestive heart failure. The patient treated with diuresis with intravenous Bumex. 5. Hypoproteinemia, hypoalbuminemia, severe protein-calorie malnutrition and adult failure to thrive. 6. Pulmonary hypertension, being managed. 7. Severe volume overload including ascites. IRVING MORENO MD CM:PNTRANS [phone] IRVING MORENO MD 05/02/18 0109 interface
--- NOTE | ~2018-04-27 | PR ---
[place], [place] PROGRESS NOTE NAME: JOSH BLAKE I UNIT #: [id number] ROOM: 427 DOCTOR: IRVING MORENO MD BIRTHDATE: [birth year] DOS: 04/29/2018 SUBJECTIVE: The patient is still uncomfortable, but breathing slightly better. OBJECTIVE: GENERAL APPEARANCE: The patient is alert and oriented x 3, in no visible distress. Generalized weakness, obesity, severe peripheral volume overload and anasarca. VITAL SIGNS: Blood pressure 169/79, heart rate of 91 beats per minute, breathing 20 times per minute, temperature 97.6 degrees Fahrenheit. HEENT AND NECK: Exam within normal limits. CARDIOVASCULAR SYSTEM: Heart rate is regular in rate and rhythm. S1 and S2 normally audible. LUNGS: Clear to auscultation. ABDOMEN: Soft, nontender. No obvious organomegaly. Bowel sounds are present. EXTREMITIES: Without significant cyanosis or edema. IMPRESSION: 1. Acute congestive heart failure. Echocardiogram results are still pending. Cardiology following the patient. The patient remains on IV Bumex. 2. I am consulting Dr. Forman to give me a second opinion on why the patient is in such extremely poor health and is chronically sick and malnourished with volume overload. The patient's blood sugars appear to be reasonably controlled and she has no history of smoking cigarettes or any malignancy. 3. Anasarca, severe volume overload, hypoproteinemia. The patient appears chronically sick. The patient is being diuresed. 4. Type 2 diabetes mellitus with well controlled blood sugars. 5. Severe protein-calorie malnutrition. The patient to work with dietary. 6. Hypothyroidism. Thyroid function is pending. The patient on no supplements. IRVING MORENO MD CM:PNTRANS [phone] IRVING MORENO MD 04/29/18 1253 interface
--- NOTE | ~2018-04-27 | PR ---
[place], [place] PROGRESS NOTE NAME: JOSH BLAKE I UNIT #: [id number] ROOM: 427 DOCTOR: WILLOW PERKINS MD,SHAISTA BIRTHDATE: [birth year] DOS: 05/08/2018 SUBJECTIVE: The patient has been noted comfortable at this time, but noted with gradual improvement in the severe edema of the lower extremity. Continued to be in a negative fluid balance was getting intravenous IV Bumex. The patient has been noted cough, which is noted intermittent small amount of sputum expectoration at time. Denies symptoms of shortness of breath. PHYSICAL EXAMINATION: VITAL SIGNS: Normal temperature, respiratory rate 18, heart rate 79, blood pressure 138/60. Pulse oxygen saturation on room air was 96% saturation. HEENT: No acute change. CARDIOVASCULAR: S1, S2 is audible. LUNGS: Without any wheeze or crackles. ABDOMEN: Soft, nontender. EXTREMITIES: Still shows edema, but it is improving. LABORATORY DATA: Negative fluid balance noted about 6.6 liters in the last 24 hours. The Gram stain of the sputum for the patient many white blood cells, moderate gram-positive cocci in pairs and chains normal tisha. Final culture results were pending. BMP this morning, BUN of 16, creatinine 1.30, glucose 213. IMPRESSION: 1. The patient with improving anasarca and other respiratory symptoms. Acute coughing with acute bronchitis. 2. Improving acute exacerbation of bronchial asthma. PLAN OF MANAGEMENT: Continuation of current therapy. The patient at this time in progress. Other supportive therapy, plan of management, care plan and treatment and therapies. SHAISTA DAUGHERTY MD CM:PNTRANS [phone] SHAISTA PERKINS MD 05/08/18 1746 interface
--- NOTE | ~2018-04-27 | CON ---
[place], [place] REPORT OF CONSULTATION NAME: JOSH BLAKE I UNIT #: [id number] ROOM: 427 DOCTOR: SHAISTA CLARK MD BIRTHDATE: [birth year] DOS: 04/30/2018 PULMONARY CONSULTATION, EVALUATION, AND MANAGEMENT CONSULTATION REQUESTED BY: Elian Iglesias M.D. REASON FOR CONSULTATION: Assessment of shortness of breath. HISTORY OF PRESENT ILLNESS: This is a 53-year-old white female who has been admitted to the hospital on the date of 04/26/2018 The patient presented to Hospital Emergency Room for assessment of shortness of breath, progressive weight gain of 50 pounds or greater with severe edema of the lower extremities. The patient has been admitted to the hospital for further care for the medical management. She does report symptoms of nonproductive cough present for several weeks. She has been reporting symptoms of chest congestion. Denies symptoms of wheezing with chest tightness reported at time. She has been admitted in [facility] because of nephrolithiasis. The patient has been diagnosed with chronic kidney disease and also diagnosed congestive heart failure established during the hospitalization at [facility] last year. She has a kidney stents inserted, which was later removed as per. REVIEW OF SYSTEMS: CONSTITUTIONAL: Fatigue and tiredness reported. No symptoms of fever or chills. EYES: Denies any burning, redness, or tenderness. EARS, NOSE, THROAT SYMPTOMS: Denies sore throat, hoarseness, otalgia, postnasal drainage or epistaxis. CARDIOVASCULAR: Denies anginal pain or orthopnea. The patient noted progressive edema of the extremities. GASTROINTESTINAL: No dysphagia, nausea, vomiting, diarrhea, abdominal pain, hematemesis, melena, or hematochezia noted with increased abdominal girth for this patient as well. GENITOURINARY SYMPTOMS: No dysuria, suprapubic pain or hematuria. MUSCULOSKELETAL: No acute joint pain, redness, or tenderness. SKIN: Denies abnormal lesions or rashes. CENTRAL NERVOUS SYSTEM: Noted without any dizziness, headache, or diplopia. Remaining systems were reviewed. They were noted all negative. PAST MEDICAL HISTORY: The patient was known with history of: 1. Bronchial asthma. She has been seen in my office in 2005, but have not been regularly seen in the office afterwards. 2. Bronchial asthma has been described as longstanding as young. 3. Chronic kidney disease was also reported. 4. History of congestive heart failure with systolic, diastolic dysfunction was unknown medical records were not available at the present time. 5. Type 2 diabetes mellitus. 6. Hypothyroidism. 7. Ulcerative colitis. 8. Spinal stenosis. 9. Gastroesophageal reflux. [place], [place] REPORT OF CONSULTATION NAME: JOSH BLAKE I UNIT #: [id number] ROOM: [facility] DOCTOR: SHAISTA CLARK MD BIRTHDATE: [birth year] 10. Nephrolithiasis. 11. Essential hypertension. PAST SURGICAL HISTORY: 1. The patient reported with ureteral stents insertion. 2. Complete hysterectomy. 3. Umbilical hernia repair. 4. Tubal ligation. SOCIAL HISTORY: She is , has 2 children, nonsmoker lifetime. There is no history of alcohol use or illicit drug use reported. FAMILY HISTORY: The patient was reported father at the age of 52 due to complication of myocardial infarction. Mother at 71 years old from natural causes. MEDICATIONS: The patient was currently administered were noted as use of albumin infusion 25% IV b.i.d., clonidine, Bumex 2 mg IV b.i.d., Flonase, Norvasc, losartan, DuoNeb, and some other p.r.n. medications. DRUG ALLERGIES: NOTED WITH ALLERGIES TO THE METFORMIN CAUSING UPSET STOMACH. PHYSICAL EXAMINATION: GENERAL: This is a 53-year-old female patient who has been noted with truncal obesity which appeared to be a significantly malnourished. There was a physical appearance. Height recorded on admission 5 feet 4 inches, weight of 208 pounds, BMI 35.3. VITAL SIGNS: Vital signs of the patient which has been recorded showed the temperature noted as normal, respiratory rate 18-20, heart rate of 80-77, blood pressure 170/88 and 166/73. Pulse oxygen saturation recorded as 94% at rest on room air. HEENT: Examination shows loss of muscle mastication. NECK: Supple. Oral mucosa was moist rather dry. CARDIOVASCULAR: S1, S2 audible. LUNGS: Noted with expiratory wheezing in the lungs were noted bilaterally. ABDOMEN: Noted severe truncal obesity at the present time. EXTREMITIES: Show severe edema of bilateral lower extremities. MUSCULOSKELETAL: Without any gross deformities. CENTRAL NERVOUS SYSTEM: Cranial nerves 2-12 intact. VISIBLE SKIN: No lesions or rashes. LABORATORY DATA: Admission CBC on 04/27/2018; WBC count 11.6, hemoglobin 11, platelet count 428,000. Lactic acid 0.8 on 04/27/2018. PT/PTT on 04/27/2018 was normal. BMP on admission on 04/27/2018, BUN 31, creatinine 1.09, glucose 167, remaining electrolytes grossly normal. TSH was done yesterday noted normal TSH. CMP this morning, BUN 35, creatinine 1.33, glucose 201. Remaining electrolytes are grossly normal. Albumin of 1.3. Ultrasound of bilateral lower extremity was also completed yesterday does not show evidence of deep venous thrombosis, lymphadenopathy was reported. Urine culture no bacterial growth. The radiology data review for this patient. Chest x-ray that was done on [place], [place] REPORT OF CONSULTATION NAME: JOSH BLAKE I UNIT #: [id number] ROOM: 427 DOCTOR: WILL[facility] BIR[facility] [birth year] admission was reviewed, just 1 view bilateral pleural fluid were noted without any gross evidence of congestive heart failure. Otherwise, the interstitial edema. There was no visible any nodule, infiltration were present. Echocardiogram was also completed, that was assessed for patient Cardiology Services of 04/29/2018. The findings were noted with evidence of mild cardiomyopathy impaction, left ventricle, ejection fraction noted 40-45% with the diastolic dysfunction and global hypokinesia. Moderate concentric LVH was also noted. Right ventricle function was noted as well as hypokinesia. IMPRESSION: 1. The patient will be currently admitted to the hospital, patient was noted with symptoms of coughing, shortness of breath, and multifactorial related to exacerbation of bronchial asthma as well as the pleural fluid with congestive heart failure and systolic dysfunction combination. 2. Severe truncal obesity, rule out any ascites abdominal process because lymphadenopathy which was noted documented with current ultrasound in the groin area with possible consideration lymphoma. The patient remains in consideration for further assessment. 3. The patient with a history of chronic nephrolithiasis, which has been managed by the Urology services last year. 4. The patient with physical appearance strongly for the severe protein-calorie malnutrition status as well was noted. 5. Acute kidney injury most likely related to congestive heart failure as well. PLAN OF MANAGEMENT: CT scan of chest, abdomen and pelvis. The patient needs to be completed for further comprehensive assessment. The patient will be started intravenous Solu-Medrol. The CT scan of the chest, abdomen and pelvis with oral contrast. Bronchodilators administration to be given. Other supportive plan of management care plan to be change accordingly. Diuretic therapy was continued. The patient monitoring of the kidney function for the patient as well and the changes. Other supportive therapy, plan of management. Additional changes based to be done for the patient based on the progression of the illness. Follow the recommendation patient by the Cardiology Service for the medical management of congestive heart failure, which appeared to be a biventricular at this time. Pleural fluid will be monitored, no intervention would be planned unless they get enlarged. No other difficulties. The patient with the diuresis because of the abnormal BUN and creatinine. If it further worsens. The patient will be started on the DVT prophylaxis at the present time as well. Thanks for allowing me to participate in the care of this patient. [place], [place] REPORT OF CONSULTATION NAME: JOSH BLAKE I UNIT #: [id number] ROOM: [facility] DOCTOR: SHAISTA CLARK MD BIRTHDATE: [birth year] SHAISTA DAUGHERTY MD CM:CONSTR:REPORT OF CONSULTATION 1524 04/30/18 1605 interface
--- NOTE | ~2018-04-27 | PR ---
[place], [place] PROGRESS NOTE NAME: [facility]KE [id number] UNIT #: [id number] ROOM: 427 DOCTOR: KATHERINE KUMAR DPM BIRTHDATE: [birth year] DOS: 05/04/2018 SUBJECTIVE: This patient is seen today for followup of a recurrent ulceration plantar right foot. She admits to some minimal discomfort to the area. She just had an MRI done of the right foot to evaluate for underlying osteomyelitis. OBJECTIVE: Neurovascular status is unchanged. Still chronic ulceration, plantar right forefoot with some very mild drainage. Minimal surrounding erythema and mild edema. No fluctuance, no expressible purulent drainage. The wound is close to the metatarsal but bone is not palpable at this time. Her x-ray was negative. Vascular studies showed no occlusive disease, but did have stenosis, and her MRI is pending. ASSESSMENT: Chronic ulceration, plantar right foot, rule out osteomyelitis. PLAN: Evaluation and management. Continue with local wound care for now. We will await and see what her MRI show and proceed from there. Did review the vascular studies. Follow up tomorrow to discuss continued treatment. KATHERINE KUMAR DPM CM:ASHVIN [id number] KATHERINE KMUAR DPM 05/04/18 1205 interface
--- NOTE | ~2018-04-27 | PR ---
[place], [place] PROGRESS NOTE NAME: JOSH BLAKE I UNIT #: [id number] ROOM: 427 DOCTOR: WILLOW PERKINS MD,SHAISTA BIRTHDATE: [birth year] DOS: 05/02/2018 SUBJECTIVE: The patient continued to receive intravenous Bumex in the form of a drip and also getting intravenous albumin supplementation and has been managed by the Nephrology services. Cough has been noted [id number], nonproductive. Wheezing was noted absent. Denies any acute shortness of breath. PHYSICAL EXAMINATION: VITAL SIGNS: Normal temperature, respiratory rate 20, heart rate of 78, blood pressure 142/65 this morning. Pulse ox saturation on room air 97% saturation. HEENT: No acute change. NECK: Supple. CARDIOVASCULAR: S1, S2 is audible. LUNGS: Without any wheeze or crackles at the present time. ABDOMEN: Soft, nontender. Bowel sounds present. EXTREMITIES: No acute change. Persistent edema of the extremities. IMPRESSION: 1. The patient with acute bronchial asthma exacerbation with resolution of wheezing. 2. Hyperglycemia, uncontrolled diabetes with corticosteroids. PLAN OF MANAGEMENT: The patient's steroids have been discontinued ____ primary care attending. Monitor respiratory symptoms. At the present time start the patient on nebulized corticosteroids. At this time, if the wheezing returns there are certainly steroids need to be resumed. SHAISTA DAUGHERTY MD CM:PNTRANS [id number] SHAISTA PERKINS MD 05/02/18 1628 interface
[2018-04-27 16:53] VITALS: BP 215/105
[2018-04-27 17:30] LABS: BASO # 0.1 10*3/uL (0.0-0.1); BASO % 0.5 % (0.0-1.0); EOS # 0.2 10*3/uL (0.0-0.4); EOS % 1.7 % (1.0-4.0); HEMATOCRIT 33.9 % (37.0-47.0); LYMPH # 2.1 10*3/uL (1.3-4.4); LYMPH % 18.1 % (27.0-41.0); MEAN CELL VOLUME 91.9 fl (81.0-99.0); MEAN CORPUSCULAR HGB 29.8 pg (27.0-31.0); MEAN CORPUSCULAR HGB CONC 32.4 g/dl (33.0-37.0); MEAN PLATELET VOLUME 8.8 fl (9.6-12.3); MONO # 1.2 10*3/uL (0.1-1.0); MONO % 10.3 % (3.0-9.0); PLATELET COUNT AUTOMATED 428 10*3/uL (130-400); RED BLOOD COUNT 3.69 10*6/uL (4.10-5.10); RED CELL DISTRI WIDTH 14.4 % (0-14.5); WHITE BLOOD COUNT 11.6 10*3/uL (4.8-10.8)
[2018-04-27 17:39] LABS: ACT PARTIAL THROMBO TIME 27.1 SECONDS (20.8-31.5)
[2018-04-27 17:48] LABS: ALBUMIN 1.5 gm/dl (3.1-4.5); ALKALINE PHOSPHATASE 102 U/L (45-117); BUN 31 mg/dl (7-24); CHLORIDE 108 mmol/L (98-107); CREATININE 1.09 mg/dL (0.55-1.02); LIPASE 47 U/L (73-393); POTASSIUM 3.9 mmol/L (3.5-5.1); SGOT/AST 23 IU/L (3-35); SGPT/ALT 20 U/L (12-78); SODIUM 141 mmol/L (136-145); TOTAL PROTEIN 6.8 gm/dL (6.4-8.2); TROPONIN I 0.043 ng/ml (<0.045)
[2018-04-27 18:25] VITALS: BP 160/90
--- NOTE | 2018-04-27 20:36 | NUR ---
A 53, admitted to , under the services of Dr. JOSH GORDON,IRVING Edge with a diagnosis of CHF. Chief complaint is SOB, COUGH, CHILLS, EDEMA. Patient arrived via bed from ER. Monitor applied. Initial assessment completed. Vital signs taken and recorded. DR. JOSH GORDON,IRVING Edge notified of admission to the unit. Orders received. See assessment for past medical history, medications and allergies. Patient and/or family oriented to unit. [facility] [place] visitation policy reviewed. Clothing/patient valuable form completed. JALYN PALOMO
--- NOTE | 2018-04-27 21:17 | NUR ---
NOTIFIED DR MORENO OF PT BP OF 200/100 MANUALLY. NEW ORDERS RECEIVED FOR 5 MG NORVASC NOW AND THEN 5 MG NORVASC DAILY. WILL NOTIFY PT.
--- NOTE | 2018-04-27 21:18 | NUR ---
CONSULT CALLED TO DR GABRIEL. AWAITING CALL BACK FROM DR COULTER AT THIS TIME.
[2018-04-27] MEDS ORDERED: COZAAR100 MG PO ×2 (21:22→21:24)
[2018-04-27] MEDS ORDERED: FUROSEMIDE40 MG PO (21:22)
[2018-04-27] MEDS ORDERED: GLYXAMBI 25 MG1 EACH PO (21:25)
--- NOTE | 2018-04-27 21:30 | NUR ---
SPOKE WITH DR COULTER REGARDING CARDIOLOGY CONSULT AND BLOOD PRESSURE OF 200/100. PHYSICIAN STATES TO CONTINUE HOME MEDICATIONS OF COZAAR 100 MG AND LASIX 40 MG PO AND TO GIVE A DOSE OF EACH MEDICATION TONIGHT. WILL GIVE MEDICATION AND MONITOR BLOOD PRESSURES.
[2018-04-27 21:36] VITALS: BP 200/100
--- NOTE | 2018-04-27 22:30 | NUR ---
PT GIVEN ORDERED MEDICATIONS ALONG WITH 5MG NORVASC, ORDERED BY DR MORENO. WILL CONTINUE TO MONITOR.
[2018-04-28] VITALS: BP 170/90; BP 197/86
--- NOTE | 2018-04-28 | NUR ---
DR MORENO NOTIFIED THAT PT BLOOD PRESSURE IS 170/90 MANUALLY. PHYSICIAN MADE AWARE OF ALL MEDICATIONS GIVEN AT THIS TIME. PHYSICIAN STATES TO MONITOR BLOOD PRESSURE AND GIVES NO NEW ORDERS AT THIS TIME. WILL CONTINUE TO DAYSI PT.
[2018-04-28 06:27] LABS: BASO % 0.3 % (0.0-1.0); EOS # 0.1 10*3/uL (0.0-0.4); EOS % 0.5 % (1.0-4.0); HEMOGLOBIN 9.6 g/dl (12.0-16.0); LYMPH # 1.3 10*3/uL (1.3-4.4); LYMPH % 11.2 % (27.0-41.0); MEAN CORPUSCULAR HGB 28.5 pg (27.0-31.0); MONO # 1.1 10*3/uL (0.1-1.0); MONO % 9.4 % (3.0-9.0); NEUT # 9.2 10*3/uL (2.3-7.9); PLATELET COUNT AUTOMATED 379 10*3/uL (130-400); RED BLOOD COUNT 3.37 10*6/uL (4.10-5.10); RED CELL DISTRI WIDTH 14.1 % (0-14.5); WHITE BLOOD COUNT 11.8 10*3/uL (4.8-10.8)
[2018-04-28 06:41] VITALS: BP 168/82
[2018-04-28 06:55] LABS: BUN 31 mg/dl (7-24); CHLORIDE 105 mmol/L (98-107); POTASSIUM 3.7 mmol/L (3.5-5.1); SODIUM 142 mmol/L (136-145)
[2018-04-28 07:01] LABS: BILIRUBIN NEGATIVE (NEGATIVE); BLOOD TRACE-INTACT (NEGATIVE); CLARITY CLOUDY (CLEAR); COLOR YELLOW (YELLOW); GLUCOSE 1+ (NEGATIVE); KETONE NEGATIVE (NEGATIVE); LEUKO ESTERASE NEGATIVE (NEGATIVE); NITRITE NEGATIVE (NEGATIVE); SPECIFIC GRAVITY >= 1.030 (1.005-1.030); UROBILINOGEN 0.2 E.U./dl (0.2-1.0)
[2018-04-28 07:29] LABS: BACTERIA TRACE; RBC 21-30 rbc/hpf (0-2)
[2018-04-28 08:00] VITALS: BP 180/80
--- NOTE | 2018-04-28 09:27 | NUR ---
Occupational Therapy evaluation completed on 4 with full eval to follow. Precautions include fall risk, severe RLE pain since first fall in August 2017 with decline in ADLs and mobility since then, acute debility, weakness in BUEs. Patient is moderate complexity level via chart review, testing and evaluation. Recommend OT per POC. Patient could benefit from short SNF stay, but she insists upon d/c to home. If patient returns home then home health SN, OT,PT is indicated. Thank you for this referral. Alexia Ralph OTr/l
--- NOTE | 2018-04-28 10:30 | NUR ---
PHYSICAL THERAPY PAtient evaluated on 4, full evaluation to follow. Continue with PT as per plan of care with fall, right LE pain from fall in AUGUST per patient (requested patient and nurse to speak to MD about please checking right LE) and acute debility precautions, May benefit from SNF. PAtient is moderate complexity via chart review, tests and evalaution: [id number]. Thank you for this referral. Jennifer Bowman,PT
[2018-04-28 12:12] VITALS: BP 158/81
--- NOTE | 2018-04-28 13:00 | NUR ---
PATIENT REFUSING DRESSING CHANGE TO BE DONE ON RIGHT FOOT.
--- NOTE | 2018-04-28 14:46 | NUR ---
PHYSICAL THERAPY Patient presented to therapy in supine with head of bed elevated and report of R LE weakness. Patient agrees to therapy session. Patient was identified by name and . Patient has two family members visiting at this time. Patient transferred supine to sitting at EOB with SBA. Patient transferred STS with SBA. Patient ambulated with W/W and Close Supervision for 70' x 1 with no LOB, SOB, or other difficulty. Patient transferred back to supine in bed with SBA. Patient was left in supine with head of bed elevated, call light within reach, and bed alarm activated. Patient was 1:1 with this SHIPPER AND RECEIVING for 12 minutes total. Patient is recommended for home with HH PT upon discharge. KWAKU NGUYEN SHIPPER AND RECEIVING
--- NOTE | 2018-04-28 15:32 | NUR ---
Shift chart check completed.24 HR chart check completed.
[2018-04-28 16:00] VITALS: BP 165/82
--- NOTE | 2018-04-28 16:51 | NUR ---
ON ASSESSMENT PATIENT IS ALERT AND ORIENTED. DYSPNEIC AND EASILY FATIGUED ON MINIMAL EXERTION. DR MORENO HAS VISITED. SEE ALL APPROPRIATE INTERVENTIONS.
--- NOTE | 2018-04-28 18:23 | NUR ---
NEW IV SITE OBTAINED ON FIRST ATTEMPT RT ARM.
--- NOTE | 2018-04-28 19:00 | NUR ---
PT AWAKE DURING BEDSIDE SHIFT REPORT. PT ASKS NURSES TO CHECK HER BREASTS. LT BREAST NOTED TO BE SWOLLEN. WILL LET DR. MORENO KNOW OF NEW FINDING. NO C/O VOICED. CALL LIGHT IN REACH.
[2018-04-28 20:00] VITALS: BP 163/64
--- NOTE | 2018-04-28 21:24 | NUR ---
CHECKED PT'S BS AT THIS TIME. BSG 236. PT DENIES ANY S/S OF HYPERGLYCEMIA. PT STATES SHE TAKES PO DIABETIC MEDS AT HOME AND CHECKS HER BS ONCE EVERY MORNING. ALL NEEDS MET AT THIS TIME. CALL LIGHT IN REACH.
--- NOTE | 2018-04-28 23:09 | NUR ---
PT C/O LEFT BREAST FEELING LARGER THAN RIGHT. LEFT BREAST IS SWOLLEN. CAN YOU PLEASE LOOK AT THIS. AND DO YOU WANT A SLIDING SCALE FOR BID BS CHECKS? HER BLOOD SUGAR AT WAS 231.
--- NOTE | 2018-04-28 23:30 | NUR ---
ASSUMED CARE OF PT AT THIS TIME. PATIENT IS AWAKE IN CHAIR. C/O SOME SOB WITH EXERTION, BUT OTHERWISE STATES HER BREATHING FEELS "BETTER." ON ROOM AIR CURRENTLY. WILL MONITOR. CALL LIGHT LEFT IN REACH.
[2018-04-29] VITALS (7 sets, daily range): BP systolic 169–190; BP diastolic 71–92
--- NOTE | 2018-04-29 01:19 | NUR ---
PATIENT WEARING 1L NC AT THIS TIME. STATES IT HELPS WITH HER BREATHING. PATIENT C/O NASAL CONGESTION. HUMIDIFIER ADDED TO O2. WILL MONITOR EFFECTIVENESS.
--- NOTE | 2018-04-29 04:26 | NUR ---
PATIENT AWAKE IN BED. STILL C/O SOME NASAL CONGESTION. REQUESTING NASAL SPRAY. WILL NOTIFY MD OF REQUEST.
--- NOTE | 2018-04-29 05:11 | NUR ---
NOTIFIED OF PATIENT'S REQUEST FOR NASAL SPRAY FOR C/O NASAL CONGESTION. NEW ORDERS TO FOLLOW.
--- NOTE | 2018-04-29 06:53 | NUR ---
NOTIFIED OF PATIENT'S C/O NASAL CONGESTION AND REQUEST FOR NASAL SPRAY. NEW ORDER RECEIVED FOR NASONEX. ALSO DISCUSSED PATIENT'S BSG 192 THIS AM FOR BID BSG CHECKS. NO SLIDING SCALE NEEDS TO BE ORDERED PER . ALSO DISCUSSED PATIENT'S L BREAST SWELLING. INSTRCUTED TO ORDER A VENOUS DOPPLER.
--- NOTE | 2018-04-29 07:12 | NUR ---
CALLED BACK TO CLARIFY VENOUS DOPPLER TEST. PER , DO NOT ORDER VENOUS DOPPLER. ALSO DISCUSSED NASONEX NON-FORMULARY AT THIS FACILITY. OKAY TO DONAVON GIRARD FOR NASONEX.
[2018-04-29 08:03] LABS: CREATININE 1.26 mg/dL (0.55-1.02); POTASSIUM 3.8 mmol/L (3.5-5.1)
--- NOTE | 2018-04-29 09:00 | NUR ---
Bean Sprout Grower in to talk to patient. Patient states lives at home with her , son, and grandson. There are 3 steps in the home and basement steps. Physician: Dr. Ric Ray Pharmacy: [facility] Home health services: none Patient's level of ADLs: INDEPENDENT Patient has working utilities: yes DME: none Follow-up physician's appointment after d/c: she prefers to make her own follow up appt after discharge Does patient want to access PORTAL?: no Discharge plan discussed with patient. She lives at home with her , son, and grandson. She is independent in her ADLs and ambulation. Discussed home health care services and she denies any home needs at this time. Discussed short term SNF and she refuses. When medically stable she will be discharged to home. MEKHI QUIROGA
--- NOTE | 2018-04-29 09:51 | NUR ---
PHYSICAL THERAPY Patient presented to therapy in supine with report of feeling a little better and having no pain. Patient transferred supine to sitting at EOB with SBA. Patient transferred STS to W/W with SBA. Patient ambulated with W/W and Close Supervision for 140' x 1 with no LOB, SOB, or other difficulty. Patient is to have medical test, so this ASSOCIATE SALES will come back later to do ther ex and balance with the patient. Patient was left in sitting at EOB with call light within reach. Patient MOD I to and from bathroom throughout the day. Patient wa 1:1 with this ASSOCIATE SALES for 12 minutes total. KWAKU NGUYEN ASSOCIATE SALES
--- NOTE | 2018-04-29 10:30 | NUR ---
DR MORENO IN TO SEE PT. NEW ORDERS RECEIVED.
[2018-04-29 11:19] LABS: FREE T4 1.48 ng/dl (0.76-1.46)
[2018-04-29 11:23] LABS: THYROID STIM HORMONE (HS) 2.75 uIU/ml (0.358-4.75)
--- NOTE | 2018-04-29 11:30 | NUR ---
WILLARD HALL IN TO SEE PT. PT REFUSED TREATMENT FOR HER FOOT WOUND AT THIS TIME.
--- NOTE | 2018-04-29 12:07 | NUR ---
Nutritional Support Services Note: Pt with severe protein calorie malnutrition. Currently receives a NCS diet as ordered. Recommend Glucerna OS po TID with meals. Will provide a night snack. Encouraged good po intake and discussed healhty eating and increased protein. Will follow. Lo Leblanc Rdn Ld
--- NOTE | 2018-04-29 12:58 | NUR ---
OT NOTE Pt was seen this P.M. 1:1 for 16 minute OT session. Upon arrival pt was supine in bed, pt identified by name and . Pt had complaints of RLE "feeling heavy and head congestion". Pt transferred supine to sit EOB with SBA. While sitting EOB pt donned socks with SBA while bringing her leg over the other knee with complaints of task being "a little taxing". Visual and verbal education/demonstration completed of sock aid, it solutions sales consultant, and long handled sponge. Pt trialed and had reports of feeling more comfortable and task being easier without AE just doing her modified way. Functional mobility completed into the bathroom with CGA and verbal instructions for safety awareness. Pt then returned to the EOB where she was educated on use of leg rainbow trout farm manager and pt had reports of that making task easier. Pt was issued a leg lift at this time. Pt left sitting upright in bed with tray table in place, call lgight in hand, and tray table in place. Continue with POC as able. RONAK Huber/Sami
--- NOTE | 2018-04-29 13:30 | NUR ---
DR DAUGHERTY NOTIFIED OF CONSULT. NO NEW ORDERS RECEIVED.
--- NOTE | 2018-04-29 14:06 | NUR ---
JOSH BLAKE I [id number] Please refer to the physician's history and physical for past medical history, comorbid conditions, and allergies. Diagnosis: SONGESTIVE HEART FAILURE Faustino Score: 21,LOW OR NO RISK WOUND DESCRIPTIONS: Location of the wound: right plantar aspect of foot below right 2nd toe Type of wound: unstageable Thickness: Full Size: 0.7cm x 0.4cm x 0.1cm Tunneling: none Undermining: none Sinus Tract: none Presence of Exudate: Serosanguineous Amount: Light Color: Brown, red Odor: None Periwound Skin Appearance: Callus Wound edges: approximated Pain (associated with wound): none at time of assessment How does patient state this happened? pt stated she has had these areas for about 2 months Callus area located to right medial aspect of foot. No open areas noted at time of assessment. Area is measuring 1.8cm x 0.5cm x <0.1cm. No drainage noted at time of assessment. Surface the patient is resting on: Isoflex SKIN PREVENTION RECOMMENDATION: 1. Pressure redistribution support surface as appropriate 2. Elevate heels 3. Remove boots/TEDS every shift and reapply 4. Head of bed 30 degrees as tolerated 5. Assess nutrition and hydration 6. Manage moisture 7. Avoid the use of containment devices while in bed 8. Use absorptive products on surfaces limit layers of linens on bed 9. Turn and reposition every 1-2 hours in bed and every 1 hour in chair as tolerated 10. Weight shifts every 15 minutes while up in chair 11. Offloading with pillows or device to keep heels elevated off bed 12. Monitor skin at least every shift 13. Inspect under medical devices twice a day WOUND TREATMENT RECOMMENDATIONS: Consult podiatry for possible debridement of right plantar aspect of foot below right 2nd toe. Venous and arterial studies. X-ray to right foot for non-healing wound. Full thickness guidelines: cleanse right plantar aspect of foot below right 2nd toe with nss and apply sureprep around the wound therahoney to wound bed and cover with optifoam gentle. Heel raiser pro boots while in bed. Patient is refusing all recommendations expect for the x-ray at this time.
--- NOTE | 2018-04-29 14:17 | NUR ---
Recommend follow up for wound care in outpatient setting patient refused at this time.
--- NOTE | 2018-04-29 19:00 | NUR ---
PT AWAKE IN BED DURING BEDSIDE SHIFT REPORT VISITING W/FRIEND. NO C/O VOICED AT PRESENT. CALL LIGHT IN REACH.
--- NOTE | 2018-04-29 23:42 | NUR ---
PT MEDICATED W/TYLENOL FOR C/O H/A 12/05. PT RESTING IN BED W/LIGHTS TURNED OFF. CALL LIGHT IN REACH.
--- NOTE | 2018-04-30 00:24 | NUR ---
DR. MORENO NOTIFIED OF PT'S MANUAL BP OF 190/92. T.O. RCVD FOR CLONIDINE 0.1MG PO X1 NOW THEN BID. CARDIOLOGY TO ADJUST MEDS TOMORROW.
[2018-04-30 02:18] VITALS: BP 170/88
--- NOTE | 2018-04-30 03:20 | NUR ---
Patient sleeping. Respirations relaxed and easy. Siderails up . Wheellaurels on. HANK MAGALLON
--- NOTE | 2018-04-30 03:51 | NUR ---
24 HR chart check completed.
[2018-04-30 07:33] LABS: ALBUMIN 1.3 gm/dl (3.1-4.5); CREATININE 1.33 mg/dL (0.55-1.02); TOTAL PROTEIN 6.2 gm/dL (6.4-8.2)
--- NOTE | 2018-04-30 08:37 | NUR ---
Awake and alert. Up w/ PT. Left breast extremly edematous w/ puckering. RLE 3+ edema. LLE 1+ edema. Up in room. No BM x 4 days . pt. states this is normal for her and declines laxative , states is pain free at this time. Rt. foot assess for 2 wounds. discussed dressing application and pt. is agreeable.
--- NOTE | 2018-04-30 10:48 | NUR ---
Dressing applied to bunion rt. foot that pt. states she picked the callous off of and wound to center of planter surface. optifoam 4x4 covered both sites. discussed 24 hour urine with pt.
--- NOTE | 2018-04-30 11:18 | NUR ---
Dr. Rivera was notified of consult.
[2018-04-30 12:00] VITALS: BP 166/73
--- NOTE | 2018-04-30 12:43 | NUR ---
PHYSICAL THERAPY Patient presented to therapy in supine with head of bed elevated and report of feeling better overall. Patient reports no pain or other concerns. Patient agrees to therapy treatment. Patient was identified by name and . Patient performed supine to sitting at EOB transfer with MOD I. Patient transferred STS with MOD I. Patient ambulated with W/W and Close Supervision for 216' x 1 with no LOB, SOB, or other difficulty. Patient transferred back to supine in bed with MOD I. Patient was left in supine in bed wit hhead of bed elevated, call light within reach, and tray table near patient. Patient is ambulating to and from restroom and throughout the room MOD I throughout the day. Patient was 1:1 with this CORPORATE AUDITOR for 15 minutes total. Patient is recommended for PT upon discharge. KWAKU NGUYEN CORPORATE AUDITOR
--- NOTE | 2018-04-30 13:02 | NUR ---
Dr. Rivera in to [facility]. Orders recieved. Ok to obtain all urines w/ 24h specimen.
--- NOTE | 2018-04-30 14:45 | NUR ---
OT NOTE Pt was seen this P.M. 1:1 for 15 minute OT session. Upon arrival pt was supine in bed, pt identified by name and . Pt transferred supine to sit EOB with use of leg dehorner and SBA. While sitting EOB pt donned socks, shoes, and pants with SBA and personal adaptive techniques. Pt still at this time declines adaptive equipment. Functional mobility completed around the room with SBA and use of w/w for UE support, pt maintained a good safe speed, good posture, and good sfety with turns. Pt was left sitting upright in recliner with call light in hand, tray table in place, and phone in reach. Continue with POC as able. RONAK Huber/Sami
[2018-04-30 16:00] VITALS: BP 176/83
--- NOTE | 2018-04-30 19:00 | NUR ---
PT AWAKE DURING BEDSIDE SHIFT REPORT. NO C/O VOICED AT PRESENT. 24 HOUR IN PROGRESS. PT REMINDED TO ONLY URINATE IN HAT ON COMMODE. PT AGREEABLE. CALL LIGHT IN REACH.
[2018-04-30 20:00] VITALS: BP 179/81
[2018-05-01] VITALS: BP 177/73
--- NOTE | 2018-05-01 | NUR ---
Patient sleeping. Respirations relaxed and easy. Siderails up . Wheellaurels on. HANK MAGALLON
--- NOTE | 2018-05-01 06:44 | NUR ---
24 HR chart check completed.
[2018-05-01 08:01] VITALS: BP 180/88
--- NOTE | 2018-05-01 09:00 | NUR ---
Radiological Technologist in to see patient. No new needs or request at this time. She denies any home needs. When medically stable she will be discharged to home.
--- NOTE | 2018-05-01 09:11 | NUR ---
Occupational Therapy 1:1 treatment for grooming, functional transfers, education in adaptive equipment, use of leg acid purifier and energy conservation/work simplification. Patient able to report name and date of . Patient performs mobility from bed to bathroom and educated in sitting for self care at sink as patient reports she"hurrys" to perform bathing, grooming as her legs "give out". Patient educated in pacing. Patient also able to use leg acid purifier to move LEs in and out of bed v.s. pulling at slacks. Patient instructed to use wh walker when performing mobility in room and bathroom. Recommend continued OT per pOC with plan to d/c home v.s SNF. Alexia Ralph OTR/L
--- NOTE | 2018-05-01 09:35 | NUR ---
PHYSICAL THERAPY Patient presented to therapy in supine with head of bed elevated and no complaints of pain or concerns. Patient says she is suppossed to have a kidney biopsy next week. Patient agrees to therapy session. Patient was identified by name and . Patient transferred supine to sitting at EOB with MOD I. Patient STS transfer with MOD I. Patient ambulated with W/W and Close Supervision for 200' x 1. Patient had no LOB, SOB, or other difficulty with gait or transfers. Patient sat on bedside and performed bilateral LE ther ex x 15 reps each in all planes of movement for strengthening the LEs in order to improve patient's functional mobility. Patient was left in sitting on EOB with call light within reach and tray table near patient. Patient is MOD I throughout the room during the day. Patient was 1:1 with this WEEKEND CAREGIVER for 23 minutes total. Patient is recommended for HH PT upon discharge. KWAKU NGUYEN WEEKEND CAREGIVER
[2018-05-01 12:00] VITALS: BP 178/82
--- NOTE | 2018-05-01 14:40 | NUR ---
PHYSICAL THERAPY Pt sitting in chair. pt completed seated ankle pumps, laq, hip flexion, hip abduction, hip adduction x 15 reps on each. pt educated on proper speed and rom. Pt transfer sit-std sbax1 with education for proper safety and technique. pt ambulated 80 feet x 1 wheeled walker sbax1. Pt educated on proper step size. Pt was seen for 24 minutes Irene Katz [id number]
[2018-05-01 16:00] VITALS: BP 165/72
--- NOTE | 2018-05-01 16:41 | NUR ---
24 hour urine to be restarted.
--- NOTE | 2018-05-01 16:41 | NUR ---
PER Dr. Rivera. With the patients first void send urine for Urine protein creatine ratio, microalbumincreatine ratio, urine microscopy, urine protein, and ureanitrogen. First void is not to be wasted.
[2018-05-01 20:00] VITALS: BP 166/79
--- NOTE | 2018-05-01 20:10 | NUR ---
PT UP TO BATHROOM AND BACK TO CHAIR. RESP-EASY AND REGULAR. NO C/O AT THIS TINME. OLD IV REMOVED 2X2 APPLIED. IV started right hand with #24 angiocath after 2 attempts. The IV site was prepped with Chloraprep. Heparin lock attached. Sterile dressing applied. Patient tolerated precedure well. Procedure performed according to [facility] policy & procedure. CALL LIGHT IN REACH. SEE SHIFT ASSESSMENT. ORLANDO WELCH R
--- NOTE | 2018-05-01 22:00 | NUR ---
PT SITTING UP IN BED. TOLERATED ROUTINE MEDS WITH NO PROBLEM. [id number], SEE EMAR. PT HAS NO INSULIN COVERAGE STATES SHE CAN'T TAKE INSULIN. SHE JUST GOT DONE EATING BUFF[employer]O CHICKEN DIP AND CHIPS. NO C/O AT THIS TIME. CALL LIGHT IN REACH.
[2018-05-01 23:11] LABS: BACTERIA TRACE
[2018-05-02] VITALS: BP 142/65
--- NOTE | 2018-05-02 00:30 | NUR ---
PT RESTING IN BED. RESP-EASY AND REGULAR. NO C/O AT THIS TIME. CALL LIGHT IN REACH SEE SHIFT ASSESSMENT.
--- NOTE | 2018-05-02 04:00 | NUR ---
SLEEPING IN BED WITH HOB SLIGHTLY ELEVATED. RESP-EASY AND REGULAR. CALL LIGHT IN REACH.
[2018-05-02 05:06] LABS: TOTAL PROTEIN, SERUM 6.3 g/dL (6.0-8.5)
--- NOTE | 2018-05-02 05:30 | NUR ---
BSG-CRITICAL HIGH, REFLUX ORDERED. PT STATES ATE A BUNCH JUNK FOOD LAST NIGHT. PT STATES SHE HASN'T BEEN PUTTING OUT A LOT OF URINE FOR AWHILE. URINES SENT AND 24HR IS BEING DONE. CALL LIGHT IN REACH. SKIN W/D.
--- NOTE | 2018-05-02 07:30 | NUR ---
DR. RUIZ AT [facility] AWARE REFLUX-[id number].
[2018-05-02 08:07] LABS: COMPLEMENT C4 001834 26 mg/dL (14-44); HEPATITIS B SURFACE AG Negative (Negative); HEPATITIS C AB 0.2 (0.0-0.9); RHEUMATOID ARTHRITIS FACTOR <10.0 IU/mL (0.0-13.9)
--- NOTE | 2018-05-02 08:37 | NUR ---
PT WANTED FINGER STICK BLOOD GLUCOSE DONE PRIOR TO INSULIN BEING GIVEN, GLUCOMETER READ CRITICAL HIGH, A REFLEX WAS ALREADY DONE THIS AM WITH A RESULT OF 544, TREATED WITH INSULIN BASED ON THAT REFELX, DR. RUIZ AWARE. PT SITTING AT SIDE OF BED, ENCOURAGED PATIENT TO SIT WITH LEGS ELVATED, TUBIGRIPS REMOVED DUE TO CUTTING INTO LEGS. PT STATES NO NEEDS AT THIS TIME.
--- NOTE | 2018-05-02 10:00 | NUR ---
DISCUSS WITH PATIENT REMOVING TUBIGRIPS DUE TO CUTTING INTO LEGS, DR. RUIZ AWARE.
[2018-05-02 10:11] LABS: ALBUMIN 2.7 gm/dl (3.1-4.5); CREATININE 2.13 mg/dL (0.55-1.02); POTASSIUM 4.6 mmol/L (3.5-5.1); TOTAL PROTEIN 7.1 gm/dL (6.4-8.2)
--- NOTE | 2018-05-02 10:15 | NUR ---
CRITICAL GLUCOSE, MADE DR. RUIZ AWARE
[2018-05-02 12:00] VITALS: BP 119/44
--- NOTE | 2018-05-02 13:11 | NUR ---
DISCUSS WITH PATIENT FLUID RESTRICTION
[2018-05-02 16:00] VITALS: BP 127/50; BP 149/87
--- NOTE | 2018-05-02 18:00 | NUR ---
DR. HANSON IN TO SEE PATIENT, DRESSING TO RIGHT FOOT WAS SOILED, PER DR. HANSON, PLACE IODINE/OPTIFOAM ON FOOT. DRESSING CHANGED AT THIS TIME
[2018-05-02 18:48] LABS: CREATININE 2.33 mg/dL (0.55-1.02); POTASSIUM 4.2 mmol/L (3.5-5.1)
[2018-05-02 20:00] VITALS: BP 133/57
--- NOTE | 2018-05-02 21:37 | NUR ---
Dr. Rivera called to check on patient. See new orders.
[2018-05-03] VITALS: BP 142/62
[2018-05-03 04:03] LABS: CREATININE,URINE 107.7 mg/dL (Not Estab.)
[2018-05-03 06:37] LABS: MICRO ALBUMIN/CRE RATIO 7407.4 (0.0-30.0)
[2018-05-03 06:55] LABS: CREATININE 2.09 mg/dL (0.55-1.02); POTASSIUM 4.4 mmol/L (3.5-5.1)
[2018-05-03 08:00] VITALS: BP 120/68
[2018-05-03 10:07] LABS: FREE KAPPA LIGHT CHAINS 243.1 mg/L (3.3-19.4); FREE LAMBDA LIGHT CHAINS 50.9 mg/L (5.7-26.3); KAPPA/LAMBDA RATIO 4.78 (0.26-1.65)
[2018-05-03 12:00] VITALS: BP 136/62
[2018-05-03 16:00] VITALS: BP 140/62
--- NOTE | 2018-05-03 18:50 | NUR ---
DR. VALERA IN TO SEE PATIENT, CONTINUE TO HOLD DIRETICS, POSSIBLE KIDNEY BIOPSY TOMORROW OR FRIDAY. KEEP NPO AFTER MIDNIGHT TONIGHT
--- NOTE | 2018-05-03 19:09 | NUR ---
Shift chart check completed.24 HR chart check completed.
[2018-05-03 20:00] VITALS: BP 139/65
--- NOTE | 2018-05-03 22:57 | NUR ---
ON ASSESSMENT PATIENT ALERT AND ORIENTED. NO VOICED COMPLAINTS OF PAIN. ANASARCA CONTINUES. RT LEG IS LARGER THAN LEFT. PT HAD BEEN ON A BUMEX DRIP UNTIL TODAY. DR VALERA VISITED PRIOR TO MY SHIFT STARTING. SHE WANTS PT TO NPO AFTER MIDNIGHT BECAUSE SHE'S GOING TO TALK TO INTERVENTIONAL RADIOLOGY ABOUT POSSIBLE RENAL BIOPSY. PT ALSO SCHEDULED FOR AN MRI OF HER RT FOOT. MRI SCREENING FORM COMPLETED AND FAXED TO THE DEPARTMENT. SEE ALL APPROPRIATE INTERVENTIONS.
[2018-05-04] VITALS: BP 131/57; BP 148/89
--- NOTE | 2018-05-04 00:43 | NUR ---
EYES CLOSED. RESTING IN HIGH NETTLES'S POSITION. WATER/ICE REMOVED FROM BEDSIDE FOR NPO AFTER MIDNIGHT ORDER.
--- NOTE | 2018-05-04 06:55 | NUR ---
I ENTERED ROOM TO DO PT'S GLUCOMETER. FOUND HER UNABLE TO FOCUS ON ME, DIOPHORETIC. SHE COULDN'T TELL WHERE SHE IS, BUT JUST SAID "YES" WHEN I ASKED "ARE YOU WITH ME". BSBS <50. I STAYED WITH THE PATIENT AND PHONED THE DESK TO ORDER A STAT REFLEX AND BRING 50% DEXTROSE. DID NOT FEEL COMFORTABLE WAITING FOR THE LAB BEFORE TREATING THE PATIENT. WITHIN MINUTES OF RECEIVING IV DEXTROSE, PT ALERT, ORIENTED, ABLE TO SAY SHE'S IN THE HOSPITAL. RELATED "THAT WAS A BAD DREAM, EVERYTHING WAS DARK". LAB HERE AND STAT REFLEX OBTAINED AFTER PT AWAKE AND TALKING.
--- NOTE | 2018-05-04 07:00 | NUR ---
DR RUIZ NOTIFIED OF THE MORNING'S EVENTS. ORDERS RECEIVED.
--- NOTE | 2018-05-04 07:55 | NUR ---
0721 BLOOD SUGAR WAS 45. ONE AMP OF 50% DEXTROSE ADMINISTERED THRU R HAND IV. 0750 BLOOD SUGAR WAS 79. PROVIDED WITH OJ PER PT'S REQUEST. SHE IS AYMPTOMATIC.
--- NOTE | 2018-05-04 08:15 | NUR ---
BLOOD SUGAR WAS 80. ONE AMP OF D50 ADMINISTERED THRU L HAND HL. DR RUIZ NOTIFIED OF SEVERAL LOW SUGARS SO FAR THIS MORNING.
--- NOTE | 2018-05-04 09:06 | NUR ---
24 HR chart check completed.
--- NOTE | 2018-05-04 09:10 | NUR ---
PHYSICAL THERAPY Patient was in supine in bed wit hhead of bed elevated and report of not wanting to walk this morning because of not being awake yet and being shaky. Patient agrees to transfer into bed side chair and do ther ex and ambulation later today. Patient was identified by name and . Patient transferred supine to EOB and STS from EOB with SBA. Patient ambulated around bed , which is about 15' x 1 and transferred into bedside chair. Patient was left in bedside chair with call light within reach and LEs lowered. Patient ambulates to and from restroom throughout the day with MOD I. Patient was 1:1 with this MAIL HANDLER ASSISTANT for 12 minutes total. Patient is recommended for home health PT upon discharge. KWAKU NGUYEN MAIL HANDLER ASSISTANT
--- NOTE | 2018-05-04 10:34 | NUR ---
OT NOTE Attempted to see pt this A.M. for OT session and upon arrival pt was out of her room for MRI. Will check back at a later time/date. RONAK Huber/Sami
[2018-05-04 12:00] VITALS: BP 135/69
--- NOTE | 2018-05-04 13:46 | NUR ---
OT NOTE Second attempt made to see pt this P.M. for OT session and upon arrival pt was eating her lunch. Will check back at a later time/date. RONAK Huber/Sami
--- NOTE | 2018-05-04 13:53 | NUR ---
PT WILL HAVE CT GUIDED RENAL BIOPSY TOMORROW PERFORMED BY DR WOODALL. PT HAS BEEN MADE AWARE BY DR VALERA.
--- NOTE | 2018-05-04 14:30 | NUR ---
OT NOTE Pt was seen this P.M. 1:1 for 25 minute OT session. Upon arrival pt was supine in bed, pt identified by name and . Pt had reports of increased fatigue and weakness. Pt transferred supine to sit EOB with SBA. Functional mobility completed into the bathroom with CGA RETAIL CUSTODIAL ASSOCIATE due to leaving her walker behind, educated pt on benefits of using the walker. There she transferred on to standard commode with SBA and use of grab bar, clothing management completed with SBA, and toilet hygiene completed [place] while seated. Pt then transferred off standard commode with modA due to "increased weakness" pt stated. Pt then stood sink side while washing her face and hands and throughout pt was rushing, educated pt to slow down and on energy conservation techniques such as sitting in a chair. Pt then took a seated rest break which is were she finished her grooming task. Functional mobility completed back around the room to the EOB with SBA and use of w/w for UE support. Pt was left sitting upright on the EOB with call light in hand, tray table in place, and phone in reach. Continue with POC as able. RONAK Huber/Sami
--- NOTE | 2018-05-04 14:41 | NUR ---
PHYSICAL THERAPY Patient presented to therapy in supine with head of bed elevated and no concerns or complaints. Patient agrees to therapy session. Patient was identified by name and . Patient performed supine to sitting at EOB transfer with MOD I. Patient transferred STS with MOD I. Patient ambulated with W/W and Supervision for 100' x 1. Patient sat on EOB and performed ther ex to the bilateral LEs in all planes of movement for strengthening in order to improve patient's functional mobility x 20 reps each LE. Patient was left sitting at EOB with call light within reach. Patient is MOD I in room throughout the day. Patient was 1:1 with this MICROFICHE DUPLICATOR for 22 minutes total. Patient is recommended to home with HH PT upon discharge. KWAKU NGUYEN MICROFICHE DUPLICATOR
[2018-05-04 16:00] VITALS: BP 156/79
[2018-05-04 16:13] LABS: ATYPICAL PANCA <1:20 titer (Neg:<1:20); CYTOPLASMIC (C-ANCA) <1:20 titer (Neg:<1:20)
[2018-05-04 20:00] VITALS: BP 149/77
--- NOTE | 2018-05-04 20:24 | NUR ---
INSTRUCTED PT ON THE USE AND BENEFITS OPF FLUTTER. PT HAD GOOD EFFORT X 10. FLUTTER AT BEDSIDE
--- NOTE | 2018-05-04 22:56 | NUR ---
24HR CHART CHECK COMPLETED.
[2018-05-05] VITALS: BP 143/68
--- NOTE | 2018-05-05 08:00 | NUR ---
PT WEIGHT WAS CHARTED WITH A GREATER THAN 10 POUND WEIGHT GAIN, I REWEIGHED PATIENT ON BED, REMOVED ALL BLANKETS, NEW WEIGHT OBTAINED WAS 228.8, WHICH WOULD BE A 6.2 POUND WEIGHT GAIN FROM YESTERDAY. CHARTED NEWLY OBTAINED WEIGHT
--- NOTE | 2018-05-05 09:24 | NUR ---
PHYSICAL THERAPY Patient presented to therapy in supine wit hhead of bed elevated and report of no pain or other complaints. Patient says she is going for a kidney biopsy this morning at some point. Patient agrees to therapy session. Patient was identified by name and . Patient performed supine to sitting at EOB transfer with SBA. Patient transferred STS with MOD I. Patient ambulated with W/W and Close Supervision for 80' x 1. Patient sat in bedside chair and performed bilateral LE ther ex x 20 reps each in all planes of movement for strengthenig the LEs in order to improve patient's functional mobility. Patient was left in sitting position with call light within reach and tray table near patient. Patient is MOD I in room throughout the day. Patient was 1:1 with this DIRECTOR GRAPHICS for 22 minutes total. Patient is recommended for HH PT upon discharge. KWAKU NGUYEN DIRECTOR GRAPHICS
--- NOTE | 2018-05-05 09:41 | NUR ---
SPOKE TO CT, RENAL BIOPSY WILL BE TOMORROW 05/06. MADE PATIENT AWARE
[2018-05-05 10:10] LABS: GLOMERULAR BASEMENT AB 082719 3 units (0-20)
--- NOTE | 2018-05-05 11:53 | NUR ---
OT NOTE Pt was seen this A.M. 1:1 for 24 minute OT session. Upon arrival pt was supine in bed, pt identified by name and . Pt had no complaints at this time. Pt transferred supine to sit EOB with SBA. Functional mobility completed into the bathroom with CGA due to pt not taking her walker in with her, again educated pt on benefits of using the walker for increased safety. There pt transferred on to standard commode with Catalina and use of grab bar, clothing management completed with SBA for safety, and toilet hygiene completed [place] while seated. Pt required modA for transferring off standard commode. Pt then stood sink side while doffing gown with SBA and completing UB bathing. Pt required a seated rest break after aprox 2 minutes, pt had good carry over of energy conservation technique of using a chair while bathing versus standing and rushing through task. Pt then completed UB bathing with distant supervision while seated. Pt required maxA to transferr off chair in bathroom due to low surface. Pt then returned to B where she was left sitting upright with call light in hand, tray table in place, and phone in reach. Continue with rec D/C plan to SNF versus home with home health as indicated. RONAK Huber/Sami
[2018-05-05 12:00] VITALS: BP 144/68
[2018-05-05 12:20] LABS: BASO # 0.1 10*3/uL (0.0-0.1); BASO % 0.3 % (0.0-1.0); EOS # 0.2 10*3/uL (0.0-0.4); EOS % 1.3 % (1.0-4.0); HEMATOCRIT 27.6 % (37.0-47.0); HEMOGLOBIN 8.8 g/dl (12.0-16.0); LYMPH # 2.1 10*3/uL (1.3-4.4); LYMPH % 13.8 % (27.0-41.0); MEAN CORPUSCULAR HGB 29.3 pg (27.0-31.0); MEAN CORPUSCULAR HGB CONC 31.9 g/dl (33.0-37.0); MEAN PLATELET VOLUME 8.8 fl (9.6-12.3); MONO # 1.3 10*3/uL (0.1-1.0); MONO % 8.7 % (3.0-9.0); NEUT # 11.1 10*3/uL (2.3-7.9); NEUT % 74.9 % (47.0-73.0); PLATELET COUNT AUTOMATED 517 10*3/uL (130-400); RED CELL DISTRI WIDTH 14.4 % (0-14.5); WHITE BLOOD COUNT 14.9 10*3/uL (4.8-10.8)
[2018-05-05 12:31] LABS: CREATININE 1.52 mg/dL (0.55-1.02); POTASSIUM 4.7 mmol/L (3.5-5.1)
--- NOTE | 2018-05-05 12:35 | NUR ---
PT BLOOD SUGAR 413- SLIDING SCALE CALLS FOR 15 UNITS. PT AGREED TAKE ONLY 10 UNITS AT THIS TIME.
[2018-05-05 13:08] LABS: ALBUMIN, URINE RANDOM 71.2 % (.); ALPHA-1-GLOBULIN, URINE 0.4 % (.); ALPHA-2-GLOBULIN, URINE 2.9 % (.); GAMMA GLOBULIN, URINE 17.3 % (.); M-SPIKE % Not Observed % (Not Observed); PROTEIN,TOTAL - URINE RANDOM 1456.6 mg/dL (Not Estab.)
--- NOTE | 2018-05-05 14:43 | NUR ---
PHYSICAL THERAPY Patient presented to therapy in supine with head of bed elevated and report of feeling a little better and no complaints. Patient says she feels that she is gettign stronger. Patient transfers MOD I for all transfers. Patient ambulated with W/W and Close Supervision for 120' x 1 with verbal cues for upright posutre. Patient DECLINES STAIRS due to not feeling that she is able to do them due to pain and fatigue. She is also afraid of falling. Patient was left in sitting in bedside chair with call light within reach. Patient is MOD I throughout room during the day. Patient was 1:1 with this SMOKING PIPE LINER for 15 minutes total. KWAKU NGUYEN SMOKING PIPE LINER
[2018-05-05 15:10] LABS: A/G RATIO 0.6 (0.7-1.7); A/G RATIO 0.7 (0.7-1.7); ALBUMIN 2.4 g/dL (2.9-4.4); ALBUMIN 2.5 g/dL (2.9-4.4); ALPHA-1-GLOBULIN 0.4 g/dL (0.0-0.4); ALPHA-2-GLOBULIN 0.7 g/dL (0.4-1.0); GAMMA GLOBULIN 1.7 g/dL (0.4-1.8); GLOBULIN, TOTAL 3.8 g/dL (2.2-3.9); M-SPIKE Not Observed g/dL (Not Observed); TOTAL PROTEIN, SERUM 6.2 g/dL (6.0-8.5)
--- NOTE | 2018-05-05 15:39 | NUR ---
PT FOOT WAS DEBREIDED BY PODIATRY, BACTOBAN AND DRY GAUZE PLACED PER ORDER. PICTURES PRE AND POST DEBRIDMENT DONE. PT STATES NO NEEDS AT THIS TIME
[2018-05-05 16:00] VITALS: BP 149/70
--- NOTE | 2018-05-05 17:20 | NUR ---
PT BLOOD SUGAR 221, OFFERED INSULIN PER SLIDING SCALE AND PATIENT REFUSED.
[2018-05-05 20:00] VITALS: BP 156/79
[2018-05-06] VITALS: BP 152/74
--- NOTE | 2018-05-06 07:07 | NUR ---
JOSH BLAKE I [id number] Please refer to the physician's history and physical for past medical history, comorbid conditions, and allergies. Diagnosis: CONGESTIVE HEART FAILURE Faustino Score: 20,LOW OR NO RISK WOUND DESCRIPTIONS: Location of the wound: right plantar aspect of foot Thickness: Partial Size: 0.7cm x 0.5cm x 0.2cm Tunneling: none Undermining: none Sinus Tract: none Presence of Exudate: Serosanguineous Amount: Light Color: Red Odor: None Periwound Skin Appearance: Normal Wound edges: approximated Pain (associated with wound): none at time of assessment Surface the patient is resting on: Isoflex SKIN PREVENTION RECOMMENDATION: 1. Pressure redistribution support surface as appropriate 2. Elevate heels 3. Remove boots/TEDS every shift and reapply 4. Head of bed 30 degrees as tolerated 5. Assess nutrition and hydration 6. Manage moisture 7. Avoid the use of containment devices while in bed 8. Use absorptive products on surfaces limit layers of linens on bed 9. Turn and reposition every 1-2 hours in bed and every 1 hour in chair as tolerated 10. Weight shifts every 15 minutes while up in chair 11. Offloading with pillows or device to keep heels elevated off bed 12. Monitor skin at least every shift 13. Inspect under medical devices twice a day WOUND TREATMENT RECOMMENDATIONS: Continue current order per podiatry. Patient stated when she is discharged she will follow up in the office and she will make the appointment on her own due to not knowing her schedule off hand for her eye injections.
--- NOTE | 2018-05-06 09:00 | NUR ---
Household Appliance Installer in to see patient. Discussed any home needs and she denies any home needs at this time. When medically stable she will be discharged to home.
--- NOTE | 2018-05-06 09:30 | NUR ---
PHYSICAL THERAPY Patient was not in room for procedure. Kidney biopsy. KWAKU NGUYEN PTA
[2018-05-06 11:00] VITALS: BP 140/78
--- NOTE | 2018-05-06 11:05 | NUR ---
SPOKE WITH DR. VALERA AT THIS TIME. STATED TO KEEP PATIENT LAYING FLAT POSSIBLE ON HER BACK FOR MOST OF THE DAY. STATED PATIENT IS ALLOWED TO GET UP TO REST ROOM. STATED TO MONITOR BLOOD IN URINE. MONITOR BLOOD PRESSURE AND PULSE EVERY 2 HOURS FOR THE NEXT 6 HOURS. ALSO ORDERED TO CHECK HEMOGLOBIN AT 1400 TODAY.
--- NOTE | 2018-05-06 11:46 | NUR ---
PHYSICAL THERAPY Patient was back in room after being in surgery this AM for renal biopsy. Patient is not suppossed to walk or be active due to just having the procedure this AM. NO therapy provided for this reason, Will check back this afternoon. KWAKU NGUYEN PRODUCT DELIVERY SPECIALIST
--- NOTE | 2018-05-06 11:48 | NUR ---
DR. MORENO CALLED AT THIS TIME CONCERNING PATIENT REFUSING INSULIN. STATED TO START HER GLYXAMBI FROM HOME AND TO PUT HER ON A NO CONCENTRATED SWEET DIET.
[2018-05-06 12:00] VITALS: BP 127/58
--- NOTE | 2018-05-06 13:19 | NUR ---
PHYSICAL THERAPY Patient has company at this time. Will check back later. EAR MIKE NGUYEN PTA
[2018-05-06 14:00] VITALS: BP 139/60
--- NOTE | 2018-05-06 14:16 | NUR ---
OT NOTE Attempted to see pt this P.M. for OT session and after speaking with pt's nurse pt is to stay in bed as flat as possible for the rest of the day. No therapy provided at this time. Will continue with POC as able. BALA Huber
--- NOTE | 2018-05-06 14:18 | NUR ---
PHYSICAL THERAPY Patient still on medical hold due to having a needle biopsy this morning per patient's surgeon and RN. Patient did not have therapy today for this reason. KWAKU NGUYEN PASTER SUPERVISOR
[2018-05-06 15:54] LABS: BASO # 0.1 10*3/uL (0.0-0.1); BASO % 0.5 % (0.0-1.0); EOS # 0.4 10*3/uL (0.0-0.4); EOS % 3.6 % (1.0-4.0); HEMOGLOBIN 7.8 g/dl (12.0-16.0); LYMPH # 1.4 10*3/uL (1.3-4.4); LYMPH % 13.5 % (27.0-41.0); MEAN CELL VOLUME 91.9 fl (81.0-99.0); MEAN CORPUSCULAR HGB 28.7 pg (27.0-31.0); MEAN CORPUSCULAR HGB CONC 31.2 g/dl (33.0-37.0); MEAN PLATELET VOLUME 8.8 fl (9.6-12.3); MONO # 1.2 10*3/uL (0.1-1.0); MONO % 11.2 % (3.0-9.0); NEUT # 7.3 10*3/uL (2.3-7.9); NEUT % 70.4 % (47.0-73.0); PLATELET COUNT AUTOMATED 481 10*3/uL (130-400); RED BLOOD COUNT 2.72 10*6/uL (4.10-5.10); RED CELL DISTRI WIDTH 14.5 % (0-14.5); WHITE BLOOD COUNT 10.3 10*3/uL (4.8-10.8)
[2018-05-06 16:00] VITALS: BP 128/61
[2018-05-06 16:01] LABS: CREATININE 1.37 mg/dL (0.55-1.02); POTASSIUM 4.4 mmol/L (3.5-5.1)
--- NOTE | 2018-05-06 17:56 | NUR ---
JEROME PLACED AT THIS TIME PER PHYSICAN ORDERS. PATIENT TOLERATED WELL.
[2018-05-06 18:33] LABS: HEMATOCRIT 24.7 % (37.0-47.0); HEMOGLOBIN 7.8 g/dl (12.0-16.0)
[2018-05-06 20:00] VITALS: BP 134/59
[2018-05-07] VITALS: BP 144/54
[2018-05-07 07:30] LABS: IRON 24 ug/dL (50-170); TOTAL IRON BINDING CAPACITY 129 ug/dl (250-450)
[2018-05-07 10:31] LABS: BASO % 0.3 % (0.0-1.0); EOS # 0.3 10*3/uL (0.0-0.4); EOS % 2.7 % (1.0-4.0); HEMATOCRIT 24.7 % (37.0-47.0); HEMOGLOBIN 7.8 g/dl (12.0-16.0); LYMPH # 1.3 10*3/uL (1.3-4.4); LYMPH % 10.5 % (27.0-41.0); MEAN CELL VOLUME 93.6 fl (81.0-99.0); MEAN CORPUSCULAR HGB 29.5 pg (27.0-31.0); MEAN CORPUSCULAR HGB CONC 31.6 g/dl (33.0-37.0); MEAN PLATELET VOLUME 8.9 fl (9.6-12.3); MONO % 7.9 % (3.0-9.0); NEUT # 9.8 10*3/uL (2.3-7.9); PLATELET COUNT AUTOMATED 480 10*3/uL (130-400); RED BLOOD COUNT 2.64 10*6/uL (4.10-5.10); RED CELL DISTRI WIDTH 14.5 % (0-14.5); WHITE BLOOD COUNT 12.6 10*3/uL (4.8-10.8)
--- NOTE | 2018-05-07 10:34 | NUR ---
PHYSICAL THERAPY Patient presented to therapy in supine with head of bed elevated and report of fatigue, but otherwise feeling better. Patient transferred supine to sitting at EOB with MOD I. Patient performed STS transfer with MOD I. Patient ambulated with W/W and Close Supervision for 120' x 1 with IV POLE and hanley catheter. Patient sat on EOB and performed bilateral LE ther ex x 10 reps each in all planes of movement for strengthenng the LEs in order to improve patient's functional mobility. Patient performed x 5 STSs in a row with MOD I. Patient was 1:1 with this BLUEPRINT CUTTER for 20 minutes total. Patient was left in sitting at EOB with call light within reach. Patient is MOD I throughout room during the day. Patient is recommended for discharge to home with HH upon discharge. KWAKU NGUYEN BLUEPRINT CUTTER
[2018-05-07 10:40] LABS: ALBUMIN 2.6 gm/dl (3.1-4.5); CREATININE 1.3 mg/dL (0.55-1.02)
[2018-05-07 12:00] VITALS: BP 111/56
--- NOTE | 2018-05-07 14:37 | NUR ---
OT NOTE Pt was seen this P.M. 1:1 for 15 minute OT session. Upon arrival pt was in the bathroom. Pt identified by name and and had no complaints other than generalized fatigue and weakness. Pt transferred off standard commode with maxA and use of grab bar. Clothing management completed with Catalina and toilet hygiene completed [place] while seated. Pt then stood sink side while washing her hands with SBA for safety. Functional mobility then completed around the room with SBA and use of w/w for UE support. Pt returned to [facility] where she transferred sit to supine with SBA. Pt was left supine in bed with call light in hand, tray table in place, and fmaily in the room. Continue with rec D/C plan to SNF versus home with home health. RONAK Huber/Sami
--- NOTE | 2018-05-07 14:47 | NUR ---
PHYSICAL THERAPY Patient was exiting bathroom when this HARBOR BOAT PILOT arrived in patient's room. Patient had one male visitor in room. Patient agrees to therapy session. Patient was identified by name and . Patient still had IV line and folly catheter. Patient performed ambulation with W/W and CLose Supervision for 150' x 1 with other therapist handling the IV POLE. Patient tolerated gait very well and had no LOB, SOB, OR OTHER DIFFICULTY WITH GAIT. Patient transferred back to sitting at bedside with MOD I. Patient was left sitting EOB with visitor in room and call light within reach. Patient was 1:1 with this HARBOR BOAT PILOT for 14 minutes Patient is recommened discharge to home upon discharge. KWAKU NGUYEN HARBOR BOAT PILOT
[2018-05-07 16:00] VITALS: BP 132/55
[2018-05-07 20:00] VITALS: BP 137/62
[2018-05-08] VITALS: BP 137/53
[2018-05-08 07:00] LABS: BASO % 0.4 % (0.0-1.0); EOS # 0.4 10*3/uL (0.0-0.4); EOS % 4.2 % (1.0-4.0); HEMATOCRIT 25.8 % (37.0-47.0); LYMPH # 1.1 10*3/uL (1.3-4.4); LYMPH % 11.2 % (27.0-41.0); MEAN CELL VOLUME 92.1 fl (81.0-99.0); MEAN CORPUSCULAR HGB 28.6 pg (27.0-31.0); MEAN PLATELET VOLUME 9.1 fl (9.6-12.3); MONO % 10.1 % (3.0-9.0); NEUT % 73.7 % (47.0-73.0); PLATELET COUNT AUTOMATED 483 10*3/uL (130-400); RED CELL DISTRI WIDTH 14.4 % (0-14.5); WHITE BLOOD COUNT 9.5 10*3/uL (4.8-10.8)
[2018-05-08 07:23] LABS: CREATININE 1.3 mg/dL (0.55-1.02); POTASSIUM 4.4 mmol/L (3.5-5.1)
[2018-05-08 08:00] VITALS: BP 138/60
--- NOTE | 2018-05-08 08:10 | NUR ---
OT NOTE Pt was seen this A.M. 1:1 for 24 minute OT session. Upon arrival pt was supine in bed, pt identified by name and . Pt had no complaints at this time and presented to therapy with IV treatment. Pt transferred supine to sit EOB with SBA. Sit to stand completed from bed level with CGA for safety. Functional mobility then completed into the bathroom with CGA while pt managed IV pole. There she transferred on to standard commode with SBA. Clothing management completed with SBA and toilet hygiene completed [place] while seated. Pt transferred off standard commode with modA and use of grab bar. Pt then stood sink side while completing grooming task at the sink. After aprox 1 minute of static standing pt was requesting to sit to complete the rest. Pt sat ehile finishing task and required modA to transfer out of the chair due to low surface. Pt then returned to EOB where she transferred sit to supine with SBA and use of leg lift for assist with RLE. Pt was left supine in bed with call light in hand, tray table in place, and phone in reach. Continue with rec D/C plan to SNF versus home with home health as indicated. RONAK Huber/Sami
--- NOTE | 2018-05-08 09:00 | NUR ---
Printed Circuit Board Drafter in to see patient. No new needs or request at this time. Discussed possible bronchoscopy with patient and she states she didn't speak with Dr. Forman about that. She states Dr. Rivera would like to keep her here at the hospital for a couple more days to help get rid of some more of the swelling. She continues to deny any home needs. When medically stable she will be discharged to home.
--- NOTE | 2018-05-08 11:12 | NUR ---
PHYSICAL THERAPY Patient presented to therapy in sitting position on EOB with report of feeling better and no complaints. Patient still has the folley catheter and IV infusing at this time. Patient agrees to therapy session. Patient was identified by name and . Patient STS transfer with MOD I. Patient ambulated 130' x 1 with Close Supervision with W/W. Patient sat on EOB and performed bilateral LE ther ex in all planes of movement x 15 reps each for strengthening the LEs in order to impprove patient's functional mobility. Patient was 1:1 with this HUMAN RESOURCE ANALYST for 20 minutes total. Patient is recommended for home upon discharge. Patient was left sitting on EOB and call light within reach and pateint's in room with her visiting. KWAKU NGUYEN HUMAN RESOURCE ANALYST
--- NOTE | 2018-05-08 11:31 | NUR ---
PHYSICAL THERAPY Patient has been declining going up and down stairs due to a fear of falling. Will continue to try to encourage her ascened and descend stairs. KWAKU NGUYEN SPRINKLER FITTER APPRENTICE
[2018-05-08 12:00] VITALS: BP 151/63
--- NOTE | 2018-05-08 14:49 | NUR ---
PHYSICAL THERAPY Patient presented to therapy in supine with report of feeling better and stronger. Patient agrees to therapy session. Patient was identified by name and . Patient performed supine to sitting at EOB transfer with MOD I. Patient performed ambulation with W/W and CLose Supervision for 30' x 1 to [facility]. Patient ascended and descended 4 steps with CGA X 1 with verbal cues for strong LE up first and down with weaker LE. Patient ambulated from [facility] down the hallway to the nurses station with W/W and Close Supervision for 130' x 1. Patient was left sitting on EOB with call light within reach. Patient is MOD I throughout day room during the day. Patient was 04/28 with this PATIENT INTAKE REPRESENTATIVE for 23 minutes total. Patient is recommended for HH PT upon discharge. KWAKU NGUYEN PATIENT INTAKE REPRESENTATIVE
[2018-05-08 16:00] VITALS: BP 158/56
[2018-05-08 20:00] VITALS: BP 160/60
[2018-05-09] VITALS: BP 139/58
[2018-05-09 06:46] LABS: BASO % 0.3 % (0.0-1.0); EOS # 0.4 10*3/uL (0.0-0.4); EOS % 4.5 % (1.0-4.0); HEMATOCRIT 25.2 % (37.0-47.0); HEMOGLOBIN 7.9 g/dl (12.0-16.0); LYMPH # 1.3 10*3/uL (1.3-4.4); LYMPH % 13.6 % (27.0-41.0); MEAN CELL VOLUME 92.3 fl (81.0-99.0); MEAN CORPUSCULAR HGB 28.9 pg (27.0-31.0); MEAN CORPUSCULAR HGB CONC 31.3 g/dl (33.0-37.0); MEAN PLATELET VOLUME 9.1 fl (9.6-12.3); MONO % 10.6 % (3.0-9.0); NEUT # 6.5 10*3/uL (2.3-7.9); NEUT % 70.5 % (47.0-73.0); PLATELET COUNT AUTOMATED 509 10*3/uL (130-400); RED BLOOD COUNT 2.73 10*6/uL (4.10-5.10); RED CELL DISTRI WIDTH 14.6 % (0-14.5); WHITE BLOOD COUNT 9.2 10*3/uL (4.8-10.8)
[2018-05-09 06:54] LABS: CREATININE 1.34 mg/dL (0.55-1.02); POTASSIUM 3.5 mmol/L (3.5-5.1)
[2018-05-09 08:00] VITALS: BP 155/66
[2018-05-09 12:00] VITALS: BP 162/66
[2018-05-09 16:00] VITALS: BP 167/78
[2018-05-09 20:00] VITALS: BP 184/75
--- NOTE | 2018-05-09 23:26 | NUR ---
24 HR chart check completed.
[2018-05-09 23:44] VITALS: BP 162/70
--- NOTE | 2018-05-09 23:44 | NUR ---
TOOK OVER CARE OF PT AT THIS TIME. PT SITTING UP IN BED, ALERT ORIENTED AND PLEASANT MOOD. NO COMPLAINTS VOICED BY PT. PT DENIES PAIN OR SOB. IV BUMEX DRIP INFUSING AT THIS TIME. BLOOD PRESSURE OBTAINED. DRESSING TO RIGHT FOOT C/D/I. RESPIRATIONS EASY. CALL LIGHT IN REACH.
[2018-05-10] VITALS: BP 160/80
--- NOTE | 2018-05-10 04:34 | NUR ---
PT C/O HEADACHE 1000 MG TYLENOL PO GIVEN AT THIS TIME. WILL MONITOR FOR EFFECTIVENESS. CALL LIGHT IN REACH.
--- NOTE | 2018-05-10 05:34 | NUR ---
TYLENOL EFFECTIVE PER PT.
--- NOTE | 2018-05-10 06:02 | NUR ---
PT BLOOD SUGAR 407. PT REFUSES INSULIN COVERAGE AT THIS TIME. ATTEMPTS X3 MADE, INEFFECTIVE. WILL CONTINUE TO MONITOR.
[2018-05-10 07:13] LABS: BASO % 0.5 % (0.0-1.0); EOS # 0.4 10*3/uL (0.0-0.4); EOS % 5.2 % (1.0-4.0); HEMATOCRIT 25.6 % (37.0-47.0); HEMOGLOBIN 8.1 g/dl (12.0-16.0); LYMPH % 11.8 % (27.0-41.0); MEAN CELL VOLUME 91.4 fl (81.0-99.0); MEAN CORPUSCULAR HGB 28.9 pg (27.0-31.0); MEAN CORPUSCULAR HGB CONC 31.6 g/dl (33.0-37.0); MEAN PLATELET VOLUME 9.1 fl (9.6-12.3); MONO % 11.3 % (3.0-9.0); NEUT % 70.8 % (47.0-73.0); PLATELET COUNT AUTOMATED 506 10*3/uL (130-400); RED CELL DISTRI WIDTH 14.5 % (0-14.5); WHITE BLOOD COUNT 8.4 10*3/uL (4.8-10.8)
[2018-05-10 07:20] LABS: CREATININE 1.28 mg/dL (0.55-1.02); POTASSIUM 3.6 mmol/L (3.5-5.1)
[2018-05-10 08:00] VITALS: BP 152/78
[2018-05-10 12:00] VITALS: BP 150/63
--- NOTE | 2018-05-10 12:18 | NUR ---
PT REFUSED 10 UNITS HUMILAN R AND AGREED TO TAKE 6 UNITS. PT FEARFUL FROM EPISODE OF HYPOGLYCEMIA FROM "LONG ACTING INSULIN DROPPING MY SUGAR". EDUCATION PROVIDED REGARDING SHORT ACTING INSULIN AND THE EFFECTS HYPERGLYCEMIA HAS ON THE BODY SYSTEMS. LUNCH ORDERED ALREADY. VOICES NO OTHE NEEDS.
[2018-05-10 16:00] VITALS: BP 148/72
--- NOTE | 2018-05-10 16:03 | NUR ---
DR HANSON ROUNDED AND CHECKED PROGRESS OF WOUND. DRESSING CHANGE TO RIGHT PLANTAR ASPECT OF RIGHT FOOT COMPLETED PER PHYSICIAN ORDER.ENCOURAGED PT TO APPLY TUBIE COMBAT SYSTEMS OPERATOR MINE WARFARE TO BLE. PT STATED "DR RUIZ TOOK THOSE OFF", "SHE TOLD ME THAT I WASN'T TO WEAR THEM".PER DR HANSON HE WANTS TUBIE COMBAT SYSTEMS OPERATOR MINE WARFARE APPLIED PER HIS ORDER.
--- NOTE | 2018-05-10 16:56 | NUR ---
PT REFUSED COVERAGE FOR BGM 173.DIABETIC EDUCATION PROVIDED ONCE AGAIN.
[2018-05-10 20:00] VITALS: BP 152/68
[2018-05-11] VITALS: BP 153/64
--- NOTE | 2018-05-11 04:50 | NUR ---
PT IS RESTING IN BED AT THIS TIME WITH NO SIGNS/SYMPTOMS OF PAIN OR DISTRESS AT THIS TIME. RESPIRATIONS ARE EASY AND UNLABORED ON ROOM AIR. SHE IS CURRENTLY NSR ON THE MONITOR WITH A HEART RATE IN THE 80'S. BUMEX DRIP IS INFUSING @ 2ML/HR INTO R HAND IV SITE. JEROME CATHETER IS DRAINING STRAW/YELLOW URINE WITH NO SEDIMENT NOTED. BED IS IN LOWEST POSITION AND CALL LIGHT IS WITHIN REACH. WILL CONTINUE TO MONITOR PT.
[2018-05-11 08:00] VITALS: BP 162/84
--- NOTE | 2018-05-11 08:00 | NUR ---
PT AWAKE, A&O X3 AND HAS NO COMPLAINTS AT THIS TIME. WILL CONTINUE TO MONITOR PT. LEANNE.[facility]IT[facility] YO
--- NOTE | 2018-05-11 08:14 | NUR ---
PHYSICAL THERAPY Patient was approached for therapy session and she would like therapist to come back later in the morning. Will check back later in morning. KWAKU NGUYEN RN TELEHEALTH
--- NOTE | 2018-05-11 08:22 | NUR ---
PHYSICAL THERAPY Orders received for post op shoe. This is an activity that nursing completes. Nursing floor called and educated of shoe need/doctor order at 8;20am 05/11/18. Will d/c order for shoes from PT. Please order PT when medically appropriate for ambulation and mobility with weight bearing status permitted. Thank you. Jennifer Bowman,PT
--- NOTE | 2018-05-11 08:26 | NUR ---
PHYSICAL THERAPY Orders received for post op shoe. This is an activity that nursing completes. Nursing floor called and educated of shoe need/doctor order at 8;20 am, 05/11/18. Will d/c order for shoes from PT. Thank you. Jennifer Bowman,PT
--- NOTE | 2018-05-11 10:00 | NUR ---
PT HAS NO C/O PAIN OR DISCOMFORT. PT REFUSED COMPRESSION STOCKINGS THEY WERE ON THROUGHOUT THE NIGHT.
--- NOTE | 2018-05-11 10:15 | NUR ---
OT NOTE Pt was seen this A.M. 1:1 for 25 minute OT session. Upon arrival pt was sitting upright on the EOB, pt identified by name and and had no complaints at this time. Pt completed sit to stand transfer from bed level with CGA. Functional mobility completed into the bathroom with SBA while therapist managed IV pole. There she transferred on to standard commode with SBA and use of grab bar, clothing management completed with supervision , and toilet hygiene completed [place] while seated. Pt transferred off standard commode with Catalina and use of grab bar. Pt then stood sink side while doffing/donning her gown with supervision. Pt was able to tolerate aprox 2 minutes of static standing sink side while completing UB/LB bathing before requiring a chair to sit during rest of task due to fatigue. Pt transferred out of chair with Catalina due to low surface. Functional mobility completed back to EOB with SBA where she was left sitting upright under nursing information systems coordinator supervision. Continue with POC as indicated. RONAK Huber/Sami
--- NOTE | 2018-05-11 10:36 | NUR ---
PHYSICAL THERAPY Patient is eating breakfast at this time. Will check back later. KWAKU NGUYEN DOUGH PUNCHER
--- NOTE | 2018-05-11 10:50 | NUR ---
PREFORMED WOUND CHANGE PER MD ORDER. PT TOLERATED WELL AND HAD NO COMPLAINTS OF PAIN OR DISCOMFORT DURING DRESSING CHANGE. LEANNE.[facility]IT[facility] OY
--- NOTE | 2018-05-11 11:09 | NUR ---
PHYSICAL THERAPY Patient presented to therapy in sitting position at EOB with report of no pain or other complaints. Patient says she just started wearing the boot this AM. Patient agrees to therapy session. Patient was identified by name and . Patient STS transfer with MOD I. Patient performed gait with W/W and Close Supervision for 160' x 1 and chatheter and IV pole in tow. Patient had no LOB, SOB, or other difficulty with gait. Patient did stairs this past friday. Patient's student nurse needed to change patient's wound dressing so this EMPLOYEE RELATIONS ASSISTANT deferred to the student to complete wound dressing change. This EMPLOYEE RELATIONS ASSISTANT will return later to perform ther ex and balance exercises with patient. Patient was left in sitting at EOB with student nurses present. Patient was 1:1 with this EMPLOYEE RELATIONS ASSISTANT fo 15 minutes total. Patient is recommended for HH PT upon discharge. KWAKU NGUYEN EMPLOYEE RELATIONS ASSISTANT
[2018-05-11 11:38] LABS: BASO % 0.5 % (0.0-1.0); EOS # 0.4 10*3/uL (0.0-0.4); EOS % 4.5 % (1.0-4.0); HEMATOCRIT 25.4 % (37.0-47.0); LYMPH # 0.8 10*3/uL (1.3-4.4); LYMPH % 9.8 % (27.0-41.0); MEAN CORPUSCULAR HGB CONC 31.5 g/dl (33.0-37.0); MONO # 0.8 10*3/uL (0.1-1.0); MONO % 10.3 % (3.0-9.0); NEUT % 74.5 % (47.0-73.0); PLATELET COUNT AUTOMATED 489 10*3/uL (130-400); RED BLOOD COUNT 2.76 10*6/uL (4.10-5.10); RED CELL DISTRI WIDTH 14.6 % (0-14.5); WHITE BLOOD COUNT 8.1 10*3/uL (4.8-10.8)
--- NOTE | 2018-05-11 11:45 | NUR ---
PT REFUSED FULL DOSE OF INSULIN AT 10 UNITS BUT WAS IN AGREEANCE TO TAKE 6 UNITS. LEANNE.JAMAL YO
[2018-05-11 11:51] LABS: CREATININE 1.49 mg/dL (0.55-1.02); POTASSIUM 3.5 mmol/L (3.5-5.1)
--- NOTE | 2018-05-11 11:51 | NUR ---
NOTIFIED DR MORENO OF CRITICAL CO2 OF 41.
[2018-05-11 12:00] VITALS: BP 150/69
--- NOTE | 2018-05-11 14:11 | NUR ---
PT HAD JEROME OUTPUT 1750 ML FOR 8HR SHIFT. PT IS RESTING IN BED, HAD NO C/O PAIN OR DISCOMFORT. BED IN LOW LOCKED POSITION AND CALL LIGHT LEFT WITHIN REACH. LEANNE.[facility] YO
--- NOTE | 2018-05-11 14:39 | NUR ---
PHYSICAL THERAPY Patient presented to therapy in sitting on EOB with no complaints or concerns. Patient agrees to therapy session. Patient was identified by name and . Patient performed STS transfer with MOD I. Patient ambulated with W/W for 180' x 1 with Close Supervision. Patient sat on EOB and performed bilateral LE ther ex x 20 reps each in all planes of movement for strengthening the bilateral LEs in order to improve patient's functional mobility. Patient tolerated treatment well with no LOB, SOB, or other difficulty. Patient was left sitting on EOB with call light within reach. Patient is MOD I throughout room during the day. Patient was 1;1 with this SCREEN STRETCHER for 21 minutes total. KWAKU NGUYEN SCREEN STRETCHER
--- NOTE | 2018-05-11 15:17 | NUR ---
JEROME CATH D/C'D PER DR VALERA'S ORDER. PT TOLERATED WELL.CALL LIGHT IN REACH.DAUGHTER AT BEDSIDE.
[2018-05-11 16:00] VITALS: BP 133/61
[2018-05-11] MEDS ORDERED: METOLAZONE5 MG PO (16:21)
[2018-05-11] MEDS ORDERED: KLOR-CON M2020 ME1 PO (16:21)
[2018-05-11] MEDS ORDERED: BUMETANIDE1 MG PO (16:21)
[2018-05-11] MEDS ORDERED: NIFEDIPINE ER30 M1 PO (16:21)
[2018-05-11] MEDS ORDERED: CLONIDINE HCL0.2 MG PO (16:21)
[2018-05-11] MEDS ORDERED: PULMICORT RESP0.5 MG NEB (16:21)
[2018-05-11] MEDS ORDERED: DOXYCYCLINE MO100 M1 PO (16:21)
[2018-05-11] MEDS ORDERED: LANTUS SOL100 UNIT/1 SQ (16:38)
--- NOTE | 2018-05-11 17:52 | NUR ---
NOTIFIED DR VALERA PT HAD 100 ML URINE OUT POST CATH REMOVAL. BLADDER SCANNED PT FOR 157 ML 1 HOUR POST VOID.PT D/C PER DR SLOAN ORDER WITH F/U INSTRUCTIONS.
--- NOTE | 2018-05-11 18:35 | NUR ---
Discharge instructions reviewed with patient/family. Patient receptive and verbalizes understanding. Follow-up care arranged. Written instructions given to patient/family. GRIFFIN CUEVA
--- NOTE | 2018-05-12 08:56 | NUR ---
PHYSICAL THERAPY CO-SIGN I approve of the Phyical Therapy notes written above. WANDY PEARSON PT
--- NOTE | 2018-05-12 09:16 | NUR ---
OCCUPATIONAL THERAPY CO-SIGN I approve of the Occupational Therapy notes written above. SAMANTHA MILLER OTR/Sami
== END 2018-05-11 18:35 | disposition home or self-care (01) | DRG 545 ==
LOC: ED 16:52 → EDHOLD 18:36 → 4E 18:36
PROVIDERS: Internal Medicine; Internal Medicine Nephrology; Nurse Practitioner Family; ADMIT Internal Medicine
PROC: 0HBMXZZ Excision of Right Foot Skin, External Approach (ICD-10-PCS; principal; 2018-05-05)
PROC: 0TB03ZX Excision of Right Kidney, Percutaneous Approach, Diagnostic (ICD-10-PCS; 2018-05-06)
DX: E85.9 Amyloidosis, unspecified (principal); I50.33 Acute on chronic diastolic (congestive) heart failure; E43 Unspecified severe protein-calorie malnutrition; N04.9 Nephrotic syndrome with unspecified morphologic changes; J45.901 Unspecified asthma with (acute) exacerbation; K50.90 Crohn's disease, unspecified, without complications; I13.0 Hypertensive heart and chronic kidney disease with heart failure and stage 1 through stage 4 chronic kidney disease, or unspecified chronic kidney disease; R18.8 Other ascites; E87.1 Hypo-osmolality and hyponatremia; I31.3 Pericardial effusion (noninflammatory); N17.9 Acute kidney failure, unspecified; N12 Tubulo-interstitial nephritis, not specified as acute or chronic; E11.65 Type 2 diabetes mellitus with hyperglycemia; T38.0X5A Adverse effect of glucocorticoids and synthetic analogues, initial encounter; E87.6 Hypokalemia; T50.2X5A Adverse effect of carbonic-anhydrase inhibitors, benzothiadiazides and other diuretics, initial encounter; Y92.238 Other place in hospital as the place of occurrence of the external cause; E88.09 Other disorders of plasma-protein metabolism, not elsewhere classified; R76.8 Other specified abnormal immunological findings in serum; E03.9 Hypothyroidism, unspecified; I27.20 Pulmonary hypertension, unspecified; R21 Rash and other nonspecific skin eruption; M20.10 Hallux valgus (acquired), unspecified foot; M20.41 Other hammer toe(s) (acquired), right foot; N18.3 Chronic kidney disease, stage 3 (moderate); D50.9 Iron deficiency anemia, unspecified; J20.8 Acute bronchitis due to other specified organisms; R62.7 Adult failure to thrive; E77.8 Other disorders of glycoprotein metabolism; D63.1 Anemia in chronic kidney disease; E11.22 Type 2 diabetes mellitus with diabetic chronic kidney disease; L97.519 Non-pressure chronic ulcer of other part of right foot with unspecified severity; E11.621 Type 2 diabetes mellitus with foot ulcer; M48.00 Spinal stenosis, site unspecified; K21.0 Gastro-esophageal reflux disease with esophagitis; Z88.8 Allergy status to other drugs, medicaments and biological substances; Z90.710 Acquired absence of both cervix and uterus; Z98.51 Tubal ligation status; Z83.3 Family history of diabetes mellitus; Z82.49 Family history of ischemic heart disease and other diseases of the circulatory system; Z79.899 Other long term (current) drug therapy; Z85.41 Personal history of malignant neoplasm of cervix uteri; Z68.35 Body mass index [BMI] 35.0-35.9, adult

== ENCOUNTER 2018-07-24 16:41 | Inpatient (IN) | payer BC ==
[~2018-07-24] VITALS: Ht 162.5 cm; Wt 100.3 kg
--- NOTE | ~2018-07-24 | PR ---
[place], [place] PROGRESS NOTE NAME: JOSH BLAKE I UNIT #: [id number] ROOM: 404 DOCTOR: WILLOW PERKINS MD,SHAISTA BIRTHDATE: [birth year] DOS: 08/05/2018 PULMONARY PROGRESS NOTE SUBJECTIVE: The patient has been noted comfortable at this time. Still complaining of cough, nonproductive cough at times, but not noted severe. Denies symptoms of fever or chills. Denies symptoms of hemoptysis. The edema of the extremities and anterior abdominal wall has been slowly improving. OBJECTIVE: VITAL SIGNS: Normal temperature, respiratory rate 18, heart rate of 56, blood pressure 142/65. Pulse oxygen saturation was recorded as 98% saturation at rest on room air. HEENT: Shows head was atraumatic, eyes nonicterus. NECK: Supple. CARDIOVASCULAR: S1 and S2 audible. LUNGS: The patient was noted without any wheeze or crackles at the present time. ABDOMEN: Soft. Anterior abdominal wall edema has been improving. EXTREMITIES: The edema of lower extremity is resolving, but still noted significant ongoing edema of lower extremities. LABORATORY DATA: BMP today, BUN 88, creatinine 2.29. IMPRESSION: Stable respiratory status is noted at the present time with nonproductive cough at times, may be related to pleural fluid. There was no wheezing noted on the chest auscultation. PLAN OF THERAPY: Continuation of current plan of management at this time without any changes. Usual care, other supportive plan of treatment, and care. Usual medical therapy as previously. SHAISTA DAUGHERTY MD CM:PNTRANS [id number] SHAISTA PERKINS MD 08/06/18 0114 interface
--- NOTE | ~2018-07-24 | PR ---
[place], [place] PROGRESS NOTE [id number] #: [id number] ROOM: 404 DOCTOR: WILLOW PERKINS MD,SHAISTA BIRTHDATE: [birth year] DOS: 08/03/2018 PULMONARY PROGRESS NOTE SUBJECTIVE: She has been complaining of symptoms of nonproductive cough this morning. Denies symptoms of fever or chills. Denies symptoms of hemoptysis. Shortness of breath has been noted only with exertion, not at rest. The patient denies symptoms of pain of the lower extremity, still noted significant severe edema in lower extremity, but gradually improving. Anterior abdominal wall edema was also reported. There were no symptoms of headache or diplopia. The patient denies symptoms of nausea, vomiting, diarrhea. Denies symptoms of abdominal pain. She has been receiving intravenous albumin as well as intravenous Bumex drip. OBJECTIVE: VITAL SIGNS: For the patient, which was recorded showed the temperature recorded as normal, respiratory rate 17, heart rate 60, blood pressure 160/110-183/73. Pulse oxygen saturation recorded as 95% rest to room air. HEENT: Examination shows head was atraumatic. Eyes, no icterus. NECK: Supple. CARDIOVASCULAR SYSTEM: S1, S2 is audible. LUNGS: Noted decreased breath sounds in lower portion of the lungs. There were no wheezing or crackles heard. ABDOMEN: Soft with severe edema in the anterior abdominal wall. There was no tenderness. MUSCULOSKELETAL: No acute deformities. Still noted severe edema of the lower extremity, gradual reduction has been currently seen. SKIN: No new lesions or rashes. MUSCULOSKELETAL: Without any acute deformities. CENTRAL NERVOUS SYSTEM: Cranial nerves 2-12 intact. LABORATORY DATA: CBC today; WBC 6.9, hemoglobin 7.9, platelet count was normal. BMP this morning; BUN 77, creatinine 1.99. Glucose of 302. The remaining electrolytes were normal. Chest x-ray that I ordered for assessment of current cough reviewed and moderate right pleural fluid was noted at the present time. A small left pleural fluid can be excluded. IMPRESSION: 1. Recurrent cough, etiology unknown, may be related to the pleural fluid appeared to be increased as compared to previous chest x-ray in the right side. 2. Congestive heart failure, diastolic dysfunction. 3. Anemia of chronic disease as well. 4. Hyperglycemia. 5. Acute kidney injury as well. PLAN OF MANAGEMENT: Monitor the cough at this time. Monitor pleural fluid. Thoracentesis may be done if necessary to resolve the current pleural fluid. No acute intervention will be planned. She does have a history of bronchial asthma. It seems not to have an acute exacerbation at this time or any suspected infections. [place], [place] PROGRESS NOTE NAME: JOSH BLAKE I UNIT #: [id number] ROOM: [facility] DOCTOR: SHAISTA CLARK MD BIRTHDATE: [birth year] SHAISTA DAUGHERTY MD CM:PNTRANS [id number] SHAISTA PERKINS MD 08/03/18 2308 interface
--- NOTE | ~2018-07-24 | PR ---
[place], [place] PROGRESS NOTE NAME: JOSH BLAKE I UNIT #: [id number] ROOM: 404 DOCTOR: SHAISTA CLARK MD BIRTHDATE: [birth year] DOS: 07/28/2018 PULMONARY PROGRESS NOTE SUBJECTIVE: The patient was noted comfortable at this time, resting on the bed. Continue intravenous Bumex drip for the patient for the diuresis. She has been noted negative fluid balance of about 3 liters. Shortness of breath noted somewhat decreased. The patient does have mild nonproductive cough. Denies symptoms of fever, chills or chest pain. Denies symptoms of hemoptysis. Denies symptoms of headache or diplopia. OBJECTIVE: VITAL SIGNS: For the patient normal temperature, respiratory rate 18, heart rate 63, blood pressure 182/79. Pulse oxygen saturation of the patient on room air recorded 95% saturation. HEENT: Head was atraumatic. Eyes nonicterus. NECK: Supple. CARDIOVASCULAR: S1, S2 is audible. LUNGS: The patient was noted with decreased breath sounds in the lower portion of the lungs bilaterally. There were no crackles. ABDOMEN: Soft with significant anterior abdominal wall edema still noted. EXTREMITIES: Still noted severe edema. MUSCULOSKELETAL: Without any acute deformities. LABORATORY DATA: BMP for the patient this morning, BUN 56, creatinine 1.68. Glucose 290. Urine for Legionella antigen and strep antigen were noted as negative. IMPRESSION: The patient with bilateral pleural fluid, acute congestive heart failure, diastolic dysfunction, has a picture of anasarca, massive edema of the abdominal area for the patient as well as lower extremities. Wound infection of the skin as well. PLAN OF MANAGEMENT: No changes in the plan of care. Continue diuresis. Monitor kidney functions. Continuation of the oxygen therapy, plan of management, care plan for the patient, close monitor of kidney functions and the electrolytes for the patient because of the intravenous Bumex drip. Supportive care. [place], [place] PROGRESS NOTE NAME: JOSH BLAKE I UNIT #: [id number] ROOM: 404 DOCTOR: SHAISTA CLARK MD BIRTHDATE: [birth year] SHAISTA DAUGHERTY MD CM:PNTRANS [id number] SHAISTA PERKINS MD 07/28/18 2339 interface
--- NOTE | ~2018-07-24 | EKG ---
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: : 1965 Requested By: GIORGIO THOMPSON Order Number: [id number] Reading MD: Mellissa Ovalle MD Measurements Intervals [place] Rate: 87 P: 46 DE: 144 QRS: -22 QRSD: 106 T: 17 QT: 405 QTc: 488 Interpretive Statements Sinus rhythm Borderline left axis deviation Abnormal R-wave progression, late transition Borderline prolonged QT interval Baseline wander in lead(s) V1 Compared to ECG 04/27/2018 17:23:17 Left ventricular hypertrophy no longer present Electronically Signed On 07-28-2018 3:50:31 PDT by Mellissa Ovalle MD CM:EKGRPT:ELECTROCARDIOGRAM REPORT [id number] GIORGIO FAITH DRAFT REPORT GIORGIO THOMPSON DO
--- NOTE | ~2018-07-24 | PR ---
[place], [place] PROGRESS NOTE NAME: JOSH BLAEK I UNIT #: [id number] ROOM: 404 DOCTOR: WILLOW PERKINS MD,SHAISTA BIRTHDATE: [birth year] DOS: 08/01/2018 PULMONARY PROGRESS NOTE SUBJECTIVE: The patient has been complaining of some pain in the back. Denies symptoms of fever or chills. Continue intravenous Bumex drip. Diuresis still noted with significant massive edema of the extremities and the anterior abdominal wall, but the reduction has been noted gradually every day. Denies any symptoms of acute shortness of breath. The patient denies any cough today. OBJECTIVE: VITAL SIGNS: Normal temperature, respiratory rate is 18, height is 58, and blood pressure is 72/89. Negative fluid balance noted as 1900 mL in the last 24 hours, and pulse ox saturation on room air at rest is 96% saturation. HEENT: On examination, no acute change. NECK: Supple. CARDIOVASCULAR SYSTEM: S1, S2 audible. LUNGS: Noted decreased breaths in right lower lung. ABDOMEN: Soft, nontender. Bowel sounds present. EXTREMITIES: Noted severe edema of the extremities and the anterior abdominal wall. LABORATORY DATA: BMP this morning has BUN of 71, creatinine of 1.80, and glucose of 331. IMPRESSION: The patient with anasarca with congestive heart failure, diastolic dysfunction, small pleural fluid related to the current acute congestive heart failure as well stable. PLAN OF MANAGEMENT: No changes in plan of care. Continue the patient's current therapy as in progress. Usual care, other supportive plan of management, and treatments. SHAISTA DAUGHERTY MD CM:PNTRANS [id number] SHAISTA PERKINS MD 08/02/18 0613 interface
--- NOTE | ~2018-07-24 | EKG ---
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: Citlaly Scott : 1965 Requested By: MICHELLE NEWTON Order Number: [id number] Reading MD: Mellissa Ovalle MD Measurements Intervals [address] Rate: 83 P: 42 AR: 141 QRS: 1 QRSD: 112 T: 12 QT: 418 QTc: 492 Interpretive Statements Sinus rhythm Incomplete right bundle branch block Abnormal R-wave progression, late transition LVH with secondary repolarization abnormality Minimal ST elevation, inferior leads Borderline prolonged QT interval Baseline wander in lead(s) I,III,aVL,aVF Compared to ECG 04/27/2018 17:23:17 Incomplete right bundle-branch block now present Early repolarization now present ST (T wave) deviation now present Electronically Signed On 07-28-2018 3:57:30 PDT by Mellissa Ovalle MD CM:EKGRPT:ELECTROCARDIOGRAM REPORT [id number] MICHELLE FAITH DRAFT REPORT MICHELLE NEWTON DO
--- NOTE | ~2018-07-24 | EKG ---
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: : 1965 Requested By: MICHELLE NEWTON Order Number: [id number] Reading MD: Mellissa Ovalle MD Measurements Intervals [place] Rate: 84 P: 54 CA: 148 QRS: 0 QRSD: 108 T: -8 QT: 519 QTc: 614 Interpretive Statements Sinus rhythm Probable left atrial enlargement Borderline low voltage, extremity leads RSR' in V1 or V2, right VCD or RVH Prolonged QT interval Compared to ECG 04/27/2018 17:23:17 Right ventricular hypertrophy now present RSR' in V1 or V2 now present Left ventricular hypertrophy no longer present Electronically Signed On 07-28-2018 3:54:48 PDT by Mellissa Ovalle MD CM:EKGRPT:ELECTROCARDIOGRAM REPORT [id number] MICHELLE FAITH DRAFT REPORT MICHELLE NEWTON DO
--- NOTE | ~2018-07-24 | PR ---
[place], [place] PROGRESS NOTE NAME: JOSH BLAKE I UNIT #: [id number] ROOM: 404 DOCTOR: SHAISTA CLARK MD BIRTHDATE: [birth year] DOS: 07/29/2018 PULMONARY PROGRESS NOTE SUBJECTIVE: She was noted comfortable at this time, resting on the bed this morning of assessment. Has not been noted symptoms of fever or chills. Denies symptoms of coughing or any chest pain. She was continued on the diuretics with intravenous Bumex drip. The patient was noted negative fluid balance about 4 liters in the last 24 hours. She was continued on antibiotic for wound infection of the left lower extremity. PHYSICAL EXAMINATION: GENERAL: This morning, the patient resting comfortably. She was sitting on the bed without acute distress. VITAL SIGNS: For the patient which were recorded showed normal temperature, respiratory rate 18, heart rate 61, blood pressure 162/60. The pulse ox saturation on room air is 93% saturation. HEENT: Head was atraumatic. Eyes nonicterus. NECK: Supple. CARDIOVASCULAR: S1, S2 is audible. LUNGS: The patient was noted without any wheeze or crackles at the present time. There are decreased breath sounds in lower portion of the lungs. ABDOMEN: Soft with resolving edema in the anterior abdominal wall. Truncal obesity was noted. EXTREMITIES: Severe edema of the lower extremity of the patient noted with partial reduction. LABORATORY DATA: BMP today: BUN 63, creatinine 1.72, glucose 342. CBC this morning, WBC count normal, hemoglobin 8.3. IMPRESSION: The patient has severe peripheral edema, anasarca picture with the congestive heart failure, bilateral pleural fluid with acute congestive heart failure as well. History of bronchial asthma remains stable. PLAN OF THERAPY: We ordered a chest x-ray to assess the pleural fluid progression. Continue diuretics. Monitor BUN, creatinine was continued. The BUN and creatinine of the patient noted gradually increased with the use of the Bumex and diuresis; however, the potassium level remains normal. [place], [place] PROGRESS NOTE NAME: JOSH BLAKE I UNIT #: [id number] ROOM: 404 DOCTOR: SHAISTA CLARK MD BIRTHDATE: [birth year] SHAISTA DAUGHERTY MD CM:PNTRANS [id number] SHAISTA PERKINS MD 07/30/18137 interface
--- NOTE | ~2018-07-24 | PR ---
[place], [place] PROGRESS NOTE NAME: JOSH BLAKE I UNIT #: [id number] ROOM: 404 DOCTOR: WILLOW PERKINS MD,SHAISTA BIRTHDATE: [birth year] DOS: 07/30/2018 PULMONARY PROGRESS NOTE HISTORY OF PRESENT ILLNESS: The patient was noted comfortable at this time, resting on the bed at the present time. She has been still getting intravenous Bumex drip. The edema of the patient is resolving. Shortness of breath has been slowly improving. There were no symptoms of chest pain, wheezing or cough reported by the patient. She denies symptoms of headache or diplopia, nausea, vomiting, diarrhea, or abdominal pain. Remaining systems were reviewed and negative. OBJECTIVE: VITAL SIGNS: For the patient which has been recorded shows the temperature recorded as normal, respiratory rate 18, heart rate 68, blood pressure 160/90. Intake of 1000, output 3.625 liters, negative 2635 mL. Pulse ox saturation on room air 95% saturation. HEENT: Head was atraumatic. Eyes nonicterus. NECK: Supple. CARDIOVASCULAR: S1, S2 is audible. LUNGS: The patient was noted without any wheezing or crackles. The breaths are noted decreased lower portion of the lungs. ABDOMEN: Soft, nontender. Bowel sounds present. EXTREMITIES: The patient still noted severe edema, but partial reduction noted from previously. NEUROLOGIC. There were no findings of focal neurologic deficit. MUSCULOSKELETAL: Without any acute deformities. SKIN: Noted without any new lesions or rashes. LABORATORY DATA: Chest x-ray done this morning showed resolving left pleural fluid still noted with a small possible moderate left pleural effusion. Area of compression atelectasis as well. IMPRESSION: 1. The patient with resolving anasarca congestive heart failure at the present time gradually, still noted. 2. Right pleural fluid. 3. Acute on chronic congestive heart failure, diastolic dysfunction. 4. The patient with acute kidney injury related to the current diuretic, but noticed stable at the present time in general. 5. Wound infection of the skin. PLAN OF MANAGEMENT: Continue diuretics, bronchodilators, oxygen supplementation and conservative therapy pleural fluid to be monitored. No intervention will be needed. Supportive care, other therapy, plan of management. Additional treatment changes will be made based on progression of the illness. [place], [place] PROGRESS NOTE NAME: JOSH BLAKE I UNIT #: [id number] ROOM: 404 DOCTOR: SHAISTA CLARK MD BIRTHDATE: [birth year] SHAISTA DAUGHERTY MD CM:ASHVIN [id number] SHAISTA PERKINS MD 07/30/18 1524 interface
--- NOTE | ~2018-07-24 | PR ---
[place], [place] PROGRESS NOTE NAME: JOSH BLAKE I UNIT #: [id number] ROOM: 404 DOCTOR: SHAISTA CLARK MD BIRTHDATE: [birth year] DOS: 07/27/2018 PULMONARY PROGRESS NOTE SUBJECTIVE: The patient has been noted comfortable at this time. She has not used the BiPAP, the patient is not willing to use that either. She was recommended use of BiPAP couple of nights ago, but she has not used it. She denies any symptoms of chest pain. There was no cough. Shortness of breath occurred with exertion, still noted severe edema of the extremities. The patient has been currently getting intravenous Bumex drip as well. OBJECTIVE: VITAL SIGNS: Normal temperature, respiratory rate 16-18, heart rate is 69, and blood pressure is 168/90. The pulse oxygen saturation recorded on room air is 92% saturation. HEENT: On examination, head was atraumatic. Eyes nonicterus. NECK: Supple. CARDIOVASCULAR SYSTEM: S1, S2 audible. LUNGS: Decreased breaths in lower portion of the lungs with mild crackles. There was no wheezing. ABDOMEN: Soft, nontender. EXTREMITIES: Severe edema still noted. LABORATORY DATA: CBC today, WBC count was normal, hemoglobin was 8.3, and platelet count was normal. CMP this morning, BUN is 55 and creatinine is 1.73. IMPRESSION: 1. The patient with peripheral edema as well as anasarca picture was noted at the present time. 2. The patient with bronchial asthma, remains stable. 3. Bilateral pleural fluid with acute congestive heart failure and diastolic dysfunction. PLAN OF THERAPY: No changes in the plan of care at this time. Continue current plan of management. Lack of use of BiPAP, because of that it was discontinued. Continuation of the diuretics. Monitor kidney functions and the respiratory status. [place], [place] PROGRESS NOTE NAME: JOSH BLAKE I UNIT #: [id number] ROOM: 404 DOCTOR: SHAISTA CLARK MD BIRTHDATE: [birth year] SHAISTA DAUGHERTY MD CM:PNTRANS [id number] SHAISTA PERKINS MD 07/28/18 0033 interface
--- NOTE | ~2018-07-24 | PR ---
[place], [place] PROGRESS NOTE NAME: JOSH BLAKE I UNIT #: [id number] ROOM: 404 DOCTOR: WILLOW PERKINS MD,SHAISTA BIRTHDATE: [birth year] DOS: 08/04/2018 PULMONARY PROGRESS NOTE SUBJECTIVE: The patient stated the cough has been reported better from yesterday. Denies symptoms of chest pain. Shortness of breath not noted at rest. Continue current diuretic with the albumin as well as Zaroxolyn for the medical management of the current severe anasarca and peripheral edema. Denies symptoms of fever or chills. Denies symptoms of hemoptysis. Denies symptoms of nausea, vomiting or diarrhea. OBJECTIVE: VITAL SIGNS: For the patient which were recorded shows a temperature normal, respiratory rate of 18, heart rate 62, blood pressure 163/60. Negative fluid balance of 890. HEENT: Examination shows head was atraumatic. Eyes nonicterus. NECK: Supple. CARDIOVASCULAR: S1, S2 audible. LUNGS: Decreased breath sounds on the right lower lung. ABDOMEN: Soft, nontender. Bowel sounds present. EXTREMITIES: The patient without any acute edema. IMPRESSION: Stable respiratory status was noted at the present time with bilateral pleural fluid, congestive heart failure, history of bronchial asthma. Resolution of cough, mostly related to some mucus in the bronchial tube, which has been improving. PLAN OF MANAGEMENT: Continue diuretics, bronchodilators, oxygen if necessary. Continuation of the monitoring of the patient's kidney function with the use of diuretics. SHAISTA DAUGHERTY MD CM:PNTRANS [phone] SHAISTA PERKINS MD 08/17/18 1042 interface
--- NOTE | ~2018-07-24 | PR ---
[place], [place] PROGRESS NOTE NAME: JOSH BLAKE I UNIT #: [id number] ROOM: 404 DOCTOR: SHAISTA CLARK MD BIRTHDATE: [birth year] DOS: 08/02/2018 PULMONARY PROGRESS NOTE SUBJECTIVE: The patient has been sitting on the bed this morning, denies any chest pain. Mild cough was noted. Shortness of breath was noted absent at rest, but occurs with exertion. Continue intravenous Bumex and also getting IV albumin as well. The patient was still noted significant marked edema of the lower extremities and some of the anterior abdominal wall, [id number]. OBJECTIVE: VITAL SIGNS: The vital signs of the patient, which are recorded, normal temperature, respiratory rate is 19, heart rate is 62, and blood pressure is 91/75. Pulse oxygen saturation on room air is 96% saturation. HEENT: On examination, head was atraumatic. Eyes nonicterus. NECK: Supple. CARDIOVASCULAR SYSTEM: S1, S2 audible. LUNGS: Decreased breaths on the right lung base. There were no wheezing or crackles. ABDOMEN: Soft with anterior abdominal wall edema. EXTREMITIES: Still noted severe edema. The total output negative fluid balance noted as 1.955 liters with current medications. LABORATORY DATA: The BMP of the patient noted with elevation of BUN and creatinine from yesterday, BUN is 73 and creatinine is 1.93. IMPRESSION: The patient with: 1. Anasarca with severe edema. 2. Acute kidney injury. 3. Pleural fluid with respiratory symptoms. 4. Stable bronchial asthma without acute exacerbation. PLAN OF MANAGEMENT: No changes in the plan of care at this time. Continuation of the current plan of therapy as in progress. Usual care, other supportive plan of management, and treatment as well as other care. Continue to follow the Nephrology recommendation about the management of the current anasarca as well as acute kidney injury. [place], [place] PROGRESS NOTE NAME: JOSH BLAKE I UNIT #: [id number] ROOM: 404 DOCTOR: SHAISTA CLARK MD BIRTHDATE: [birth year] SHAISTA DAUGHERTY MD CM:PNTRANS [id number] SHAISTA PERKINS MD 08/03/184 interface
--- NOTE | ~2018-07-24 | PR ---
[place], [place] PROGRESS NOTE NAME: JOSH BLAKE I UNIT #: [id number] ROOM: 404 DOCTOR: SHAISTA CLARK MD BIRTHDATE: [birth year] DOS: 07/31/2018 SUBJECTIVE: She was comfortably resting. The patient still noted significant edema, anterior abdominal wall, in the areas of hips and the lower extremities. Denies symptoms of fever, chills, continued to remain on intravenous Bumex drip. She has not been noted symptoms of chest pain. Shortness of breath as per patient is improving gradually. OBJECTIVE: VITAL SIGNS: Normal temperature, respiratory rate 18, heart rate 71, blood pressure 180/90 this morning. Pulse oxygen saturation at rest on room air 93% saturation. Negative fluid pressure was recorded at 1580 mL. HEENT: Examination shows head was atraumatic. Eyes nonicterus. NECK: Supple. CARDIOVASCULAR: S1, S2 is audible. LUNGS: The patient was noted without any crackles, rhonchi or wheezing. Decreased breath sounds in the right lower lobe patient previous noted. ABDOMEN: Soft with significant severe edema anterior abdominal wall was still noted, bowel sounds present. EXTREMITIES: Still noted severe edema, but very slow improvement continued. LABORATORY DATA: CBC: WBC count normal, hemoglobin 8.2, platelet count was normal. BMP this morning, BUN 66, creatinine 1.72, and glucose 361. IMPRESSION: 1. Resolving mass, edema with lower extremity abdominal wall with anasarca picture with bilateral pleural fluid with congestive heart failure and diastolic dysfunction. 2. Acute kidney injury of the patient related to current diuretic unit, remains relatively stable. PLAN OF MANAGEMENT: Continue diuretic, bronchodilators and oxygen supplementation only if necessary. Continuation of the other treatment for bronchial asthma as well. No changes need to be made. [place], [place] PROGRESS NOTE NAME: JOSH BLAKE I UNIT #: [id number] ROOM: 404 DOCTOR: SHAISTA CLARK MD BIRTHDATE: [birth year] SHAISTA DAUGHERTY MD CM:PNTRANS [phone] SHAISTA PERKINS MD 08/17/18 1040 interface
--- NOTE | ~2018-07-24 | CON ---
[place], [place] REPORT OF CONSULTATION NAME: JOSH BLAKE I UNIT #: [id number] ROOM: 404 DOCTOR: SHAISTA CLARK MD BIRTHDATE: [birth year] DOS: 07/25/2018 PULMONARY CONSULTATION, EVALUATION AND MANAGEMENT CONSULTATION REQUESTED BY: Hospitalist service. REASON FOR CONSULTATION: For assessment of COPD. HISTORY OF PRESENT ILLNESS: A 53-year-old white female patient known to me with past history of severe edema of the lower extremity admitted to the hospital. The patient required very high dose of diuretic therapy. Other intervention was done. The patient's edema did resolve as well as the patient was noted with acute exacerbation of obstructive lung disease with acute bronchitis that was treated as well and subsequently discharged home. The patient had been admitted to the hospital under the care of the hospitalist service on 07/24/2018. The patient developed progressive worsening of the edema of the lower extremities again, which was noted massive. The patient was also noted to have an open wound that has developed on the right extremity. The wound has been wrapped this morning as it was assessed. She was complaining of symptoms of shortness of breath. She was reporting symptoms of mild shortness of breath. Denies symptoms of fever or chills. Denies any chest pain. Denies any symptoms of active wheezing. REVIEW OF SYSTEMS: CONSTITUTIONAL SYMPTOMS: Fatigue and tiredness noted without any symptoms of fever or chills. General weakness and fatigue were reported. EYES: Denies any burning, redness, or discharge. EARS, NOSE, THROAT SYMPTOMS: No sore throat, hoarseness, otalgia, postnasal drainage or epistaxis. CARDIOVASCULAR SYSTEM: Denies any angina pain or palpitation. Noted with massive edema of the lower extremities as previously. GASTROINTESTINAL SYMPTOMS: Denies dysphagia, nausea, vomiting, diarrhea, abdominal pain, hematemesis, or melena. GENITOURINARY SYMPTOMS: No dysuria, suprapubic pain, or hematuria. SKIN: Noted with an open area of wound formation of the right lower extremity. MUSCULOSKELETAL SYMPTOMS: No acute joint pain, redness, or tenderness. SKIN: No lesions or rashes otherwise. CENTRAL NERVOUS SYSTEM: Remaining systems were reviewed. They were limited, but noted negative. PAST MEDICAL HISTORY: 1. The patient with prolonged hospitalization for the similar reason. The patient admitted again in this hospital. 2. The patient with history of bronchial asthma. 3. Chronic kidney disease as well stage 2 to 3. 4. Acute congestive heart failure with severe diastolic dysfunction. 5. Type 2 diabetes mellitus. 6. Hypothyroidism. 7. Ulcerative colitis. 8. Spinal stenosis. [place], [place] REPORT OF CONSULTATION NAME: JOSH BLAKE I UNIT #: [id number] ROOM: [facility] DOCTOR: SHAISTA CLARK MD BIRTHDATE: [birth year] 9. Gastroesophageal reflux disease. 10. Nephrolithiasis. 11. Essential hypertension. PAST SURGICAL HISTORY: Reported as: 1. Ureteral stents insertion for the kidney stone management. 2. Complete hysterectomy. 3. Umbilical hernia repair. 4. Tubal ligation. SOCIAL HISTORY: The patient is , has 2 children, lives at home. Lifetime nonsmoker. There no history of alcohol use or illicit drug use. FAMILY HISTORY: The patient's father at 52 years due to complication of myocardial infarction. Mother at 71 years of natural causes. MEDICATIONS: Currently, administered is IV Bumex 2 mg b.i.d., hydralazine, clonidine, Lovenox for DVT prophylaxis, Zaroxolyn, Imdur, metoprolol tartrate, Aldactone, Solu-Medrol 40 mg b.i.d., Mucinex, DuoNeb q.4 hours, IV Zosyn, Levaquin, and vancomycin. DRUG ALLERGIES: THE PATIENT WAS NOTED ALLERGIC TO THE METFORMIN CAUSING UPSET STOMACH. PHYSICAL EXAMINATION: GENERAL: A 53-year-old female patient currently sitting on the bed without any distress. Height of 5 feet 4 inches. Weight of 79 kilograms and BMI of 42. VITAL SIGNS: For the patient, which has been recorded shows a normal temperature, respiratory rate 16-24, heart rate 79, blood pressure 160/80-208/110 noted on admission as well. Intake and output in the last 24 hours; intake is 30, output 400 mL. Pulse ox saturation on room air at rest was 96% saturation. HEENT: Head was atraumatic. Eyes nonicterus. NECK: Supple. CARDIOVASCULAR SYSTEM: S1, S2 audible. LUNGS: Noted clear to auscultation bilaterally. There are no wheezing, no crackles present. ABDOMEN: Soft, nontender with chronic obesity with severe edema in the anterior abdominal wall. EXTREMITIES: Noted 3+ pitting edema of the lower extremity, which are noted massive edema. MUSCULOSKELETAL: The patient was noted without any acute deformities. CENTRAL NERVOUS SYSTEM: The patient appeared to be grossly intact. SKIN: Open areas of skin were noted related to the edema as well. LABORATORY DATA: Laboratory data was assessed during this hospitalization. CBC of 07/24/2018; WBC count normal, hemoglobin 9.3, platelet count 447,000. CMP that was done on this admission; BUN 41, creatinine 1.42, glucose 249 on admission. ProBNP was elevated more than 2000. PT/PTT yesterday normal. Lactic acid 0.8 yesterday as well. CMP that was done this morning; BUN 42, [place], [place] REPORT OF CONSULTATION NAME: JOSH BLAKE I UNIT #: [id number] ROOM: [facility] DOCTOR: WILLOW PERKINS [facility] BIRTHDATE: [birth year] creatinine 1.38, glucose 274. CBC that was done on 07/25/2018; hemoglobin 9.8, WBC count normal, platelet count of 480,000, still elevated. Wound culture were taken for the patient gram stain; no organisms, no white blood cells and pending culture results. The review of the chest x-ray, 1 view, which was done yesterday were reviewed from the PACS images. The chest x-ray that was reviewed shows pleural fluid, noted area of compression atelectasis changes as well. A chest x-ray was done this morning again was reviewed shows evidence of pleural effusions noted bilaterally with an area of compression atelectasis. IMPRESSION: The patient has been currently admitted to the hospital with: 1. Recurrence of massive edema, anasarca. 2. Chronic kidney disease, stage 3. 3. Bilateral pleural fluid secondary to acute congestive heart failure, diastolic dysfunction. 4. Possibility of wound infection or an open area secondary to massive edema of the skin of lower extremity. The patient had an ultrasound of the lower extremity completed as well that does not show any evidence of deep venous thrombosis. 5. The patient with bronchial asthma seemed to be stable without any acute exacerbation of bronchial asthma. 6. Uncontrolled hypertension was also seen. PLAN OF MANAGEMENT: Obtain arterial blood gas to assess the ventilatory status. Use the BiPAP if necessary to help with the congestive heart failure management. The patient has been noted with high dose of Bumex, has been started on Zaroxolyn and other medications. She was also getting the multiple medications for the uncontrolled hypertension in the form of clonidine, hydralazine, and others. She was also receiving Solu-Medrol that will be discontinued. Consideration at this time with physical examination for the acute exacerbation of bronchial asthma exacerbation. She was also noted on many antibiotics, which will be discontinued for this at the present time. The antibiotic will be started in case the wound infection would be confirmed. There were no signs of acute sepsis or acute pneumonia at the present time with current assessment. Local wound management will be done as indicated. DVT prophylaxis will be continued with the Lovenox. The DVT has been excluded with the ultrasound of the lower extremities. Other supportive therapy, plan of management care. Bronchodilators for p.r.n. respiratory symptom management will be continued for bronchial asthma. Thanks for allowing me to participate in the care of this patient. [place], [place] REPORT OF CONSULTATION NAME: JOSH BLAKE I UNIT #: [id number] ROOM: [facility] DOCTOR: SHAISTA CLARK MD BIRTHDATE: [birth year] SHAISTA DAUGHERTY MD CM:CONSTR:REPORT OF CONSULTATION 1353 07/25/18 3355 interface
--- NOTE | ~2018-07-24 | PR ---
[place], [place] PROGRESS NOTE NAME: JOSH BALKE I UNIT #: [id number] ROOM: 404 DOCTOR: WILLOW PERKINS MD,SHAISTA BIRTHDATE: [birth year] DOS: 07/26/2018 PULMONARY PROGRESS NOTE SUBJECTIVE: The patient was noted comfortable at this time, resting in the bed. Continue diuretic, only noted negative for about 611 mL. Ordered the BiPAP yesterday, has not been used much by the patient. Denies symptoms of fever or chills. OBJECTIVE: VITAL SIGNS: For the patient which has been recorded showed normal temperature. The respiratory rate of 18, heart rate 72, blood 174/78-152/76. The intake is 1096 mL, output 611 mL. Pulse ox 97% saturation, rest on room air. HEENT: Head was atraumatic. Eyes nonicterus. NECK: Supple. CARDIOVASCULAR: S1, S2 audible. LUNGS: The patient was noted without any wheezing or crackles at the present time. ABDOMEN: Soft with anasarca. The patient has anterior abdominal wall edema. EXTREMITIES: Noted wound of the left lower extremity at this time with massive edema. IMPRESSION: The patient with significant severe fluid retention noted with congestive heart failure, diastolic dysfunction, bilateral pleural fluid, area of compression atelectasis. Also, evidence of bronchial asthma. PLAN OF MANAGEMENT: Continue diuretic, bronchodilators, use of BiPAP, should help improve the congestive heart failure and peripheral edema. The patient is encouraged to use it at nighttime. Other therapy, plan of management, care plan in the meantime. SHAISTA DAUGHERTY MD CM:PNTRANS [id number] SHAISTA PERKINS MD 07/27/18 0057 interface
[~2018-07-24 16:41] MED LIST changes: +BUMETANIDE1 MG PO; +CLONIDINE HCL0.2 MG PO; +COZAAR100 MG PO; +DOXYCYCLINE MO100 M1 PO; +FUROSEMIDE40 MG PO; +GLYXAMBI 25 MG1 EACH PO; +KLOR-CON M2020 ME1 PO; +LANTUS SOL100 UNIT/1 SQ; +METOLAZONE5 MG PO; +NIFEDIPINE ER30 M1 PO; +PULMICORT RESP0.5 MG NEB
[2018-07-24 16:42] VITALS: BP 205/102
[2018-07-24 17:07] LABS: BASO # 0.1 10*3/uL (0.0-0.1); BASO % 0.7 % (0.0-1.0); EOS # 0.3 10*3/uL (0.0-0.4); EOS % 3.5 % (1.0-4.0); HEMATOCRIT 29.8 % (37.0-47.0); HEMOGLOBIN 9.3 g/dl (12.0-16.0); LYMPH # 1.2 10*3/uL (1.3-4.4); LYMPH % 16.4 % (27.0-41.0); MEAN CELL VOLUME 94.9 fl (81.0-99.0); MEAN CORPUSCULAR HGB 29.6 pg (27.0-31.0); MEAN CORPUSCULAR HGB CONC 31.2 g/dl (33.0-37.0); MEAN PLATELET VOLUME 8.7 fl (9.6-12.3); MONO # 0.6 10*3/uL (0.1-1.0); MONO % 7.5 % (3.0-9.0); NEUT # 5.4 10*3/uL (2.3-7.9); NEUT % 71.6 % (47.0-73.0); PLATELET COUNT AUTOMATED 447 10*3/uL (130-400); RED BLOOD COUNT 3.14 10*6/uL (4.10-5.10); RED CELL DISTRI WIDTH 14.9 % (0-14.5); WHITE BLOOD COUNT 7.5 10*3/uL (4.8-10.8)
[2018-07-24 17:18] LABS: BILIRUBIN NEGATIVE (NEGATIVE); BLOOD 3+ (NEGATIVE); CLARITY CLEAR (CLEAR); COLOR YELLOW (YELLOW); GLUCOSE 2+ (NEGATIVE); KETONE NEGATIVE (NEGATIVE); LEUKO ESTERASE NEGATIVE (NEGATIVE); NITRITE NEGATIVE (NEGATIVE); SPECIFIC GRAVITY 1.025 (1.005-1.030); UROBILINOGEN 0.2 E.U./dl (0.2-1.0)
[2018-07-24 17:18] LABS: ACT PARTIAL THROMBO TIME 27.4 SECONDS (20.8-31.5)
[2018-07-24 17:26] VITALS: BP 208/110
[2018-07-24 17:26] LABS: ALBUMIN 1.3 gm/dl (3.1-4.5); ALKALINE PHOSPHATASE 128 U/L (45-117); BUN 41 mg/dl (7-24); CHLORIDE 111 mmol/L (98-107); CREATININE 1.42 mg/dL (0.55-1.02); LIPASE 51 U/L (73-393); POTASSIUM 4.5 mmol/L (3.5-5.1); SGOT/AST 21 IU/L (3-35); SGPT/ALT 16 U/L (12-78); SODIUM 141 mmol/L (136-145); TOTAL PROTEIN 6.9 gm/dL (6.4-8.2); TROPONIN I 0.045 ng/ml (<0.045)
[2018-07-24 17:45] LABS: BACTERIA 2+; WBC 21-30 wbc/hpf (0-5)
[2018-07-24 18:08] VITALS: BP 183/89
[2018-07-24 18:52] VITALS: BP 181/84
[2018-07-24 19:30] VITALS: BP 177/91
[2018-07-24 20:00] VITALS: BP 177/91
[2018-07-24] MEDS ORDERED: GLYXAMBI 25 MG1 EACH PO (21:00)
[2018-07-25] VITALS: BP 189/86
[2018-07-25 01:00] VITALS: BP 160/80
[2018-07-25 07:26] LABS: BASO % 0.3 % (0.0-1.0); EOS % 0.2 % (1.0-4.0); HEMATOCRIT 31.3 % (37.0-47.0); HEMOGLOBIN 9.8 g/dl (12.0-16.0); LYMPH # 0.6 10*3/uL (1.3-4.4); MEAN CELL VOLUME 93.2 fl (81.0-99.0); MEAN CORPUSCULAR HGB 29.2 pg (27.0-31.0); MEAN CORPUSCULAR HGB CONC 31.3 g/dl (33.0-37.0); MEAN PLATELET VOLUME 9.1 fl (9.6-12.3); MONO # 0.1 10*3/uL (0.1-1.0); MONO % 1.4 % (3.0-9.0); NEUT # 5.8 10*3/uL (2.3-7.9); NEUT % 88.6 % (47.0-73.0); PLATELET COUNT AUTOMATED 418 10*3/uL (130-400); RED BLOOD COUNT 3.36 10*6/uL (4.10-5.10); RED CELL DISTRI WIDTH 14.9 % (0-14.5); WHITE BLOOD COUNT 6.5 10*3/uL (4.8-10.8)
[2018-07-25 07:34] LABS: ALBUMIN 1.3 gm/dl (3.1-4.5); CREATININE 1.38 mg/dL (0.55-1.02); PHOSPHOROUS 4.7 mg/dL (2.5-4.9); POTASSIUM 4.9 mmol/L (3.5-5.1)
[2018-07-25 07:40] LABS: FREE T4 1.22 ng/dl (0.76-1.46); THYROID STIM HORMONE (HS) 2.77 uIU/ml (0.358-4.75)
[2018-07-25 08:47] LABS: VITAMIN D, 25-HYDROXY 9.9 ng/mL (30-100)
[2018-07-25] MEDS ORDERED: BUMETANIDE2 MG PO (10:48)
[2018-07-25 12:00] VITALS: BP 180/86
[2018-07-25 14:18] LABS: ABG HCO3 21.3 mmol/l (22-26); ABG O2 SATURATION 96.3 % (95-97); ARTERIAL BLOOD GAS PCO2 36.2 mmHg (35-45); ARTERIAL BLOOD GAS PH 7.384 (7.35-7.45); ARTERIAL BLOOD GAS PO2 75.4 mmHg (80-90)
[2018-07-25 16:00] VITALS: BP 182/80
[2018-07-25 20:00] VITALS: BP 158/72
[2018-07-26] VITALS: BP 156/71
[2018-07-26 06:35] LABS: BASO % 0.3 % (0.0-1.0); HEMATOCRIT 27.2 % (37.0-47.0); HEMOGLOBIN 8.4 g/dl (12.0-16.0); LYMPH # 1.1 10*3/uL (1.3-4.4); LYMPH % 18.6 % (27.0-41.0); MEAN CELL VOLUME 95.4 fl (81.0-99.0); MEAN CORPUSCULAR HGB 29.5 pg (27.0-31.0); MEAN CORPUSCULAR HGB CONC 30.9 g/dl (33.0-37.0); MEAN PLATELET VOLUME 9.1 fl (9.6-12.3); MONO # 0.8 10*3/uL (0.1-1.0); MONO % 13.2 % (3.0-9.0); NEUT # 3.9 10*3/uL (2.3-7.9); NEUT % 67.4 % (47.0-73.0); PLATELET COUNT AUTOMATED 380 10*3/uL (130-400); RED BLOOD COUNT 2.85 10*6/uL (4.10-5.10); WHITE BLOOD COUNT 5.8 10*3/uL (4.8-10.8)
[2018-07-26 06:39] LABS: CREATININE 1.75 mg/dL (0.55-1.02)
[2018-07-26 06:43] LABS: TOTAL PROTEIN 6.6 gm/dL (6.4-8.2)
[2018-07-26 07:03] LABS: FERRITIN 266.7 ng/mL (10.0-291.0)
[2018-07-26 08:00] VITALS: BP 162/76
[2018-07-26 12:00] VITALS: BP 174/78
[2018-07-26 16:00] VITALS: BP 172/72
[2018-07-26 20:00] VITALS: BP 158/62
[2018-07-27] VITALS: BP 168/65
[2018-07-27 06:29] LABS: BASO % 0.5 % (0.0-1.0); EOS # 0.1 10*3/uL (0.0-0.4); EOS % 1.5 % (1.0-4.0); HEMATOCRIT 26.9 % (37.0-47.0); HEMOGLOBIN 8.3 g/dl (12.0-16.0); LYMPH # 0.8 10*3/uL (1.3-4.4); LYMPH % 13.2 % (27.0-41.0); MEAN CELL VOLUME 95.1 fl (81.0-99.0); MEAN CORPUSCULAR HGB 29.3 pg (27.0-31.0); MEAN CORPUSCULAR HGB CONC 30.9 g/dl (33.0-37.0); MEAN PLATELET VOLUME 9.2 fl (9.6-12.3); MONO # 0.7 10*3/uL (0.1-1.0); MONO % 12.2 % (3.0-9.0); NEUT # 4.4 10*3/uL (2.3-7.9); NEUT % 72.4 % (47.0-73.0); PLATELET COUNT AUTOMATED 337 10*3/uL (130-400); RED BLOOD COUNT 2.83 10*6/uL (4.10-5.10); RED CELL DISTRI WIDTH 15.2 % (0-14.5)
[2018-07-27 06:48] LABS: ALBUMIN 2.8 gm/dl (3.1-4.5); CREATININE 1.73 mg/dL (0.55-1.02); PHOSPHOROUS 5.2 mg/dL (2.5-4.9); POTASSIUM 4.7 mmol/L (3.5-5.1); TOTAL PROTEIN 6.8 gm/dL (6.4-8.2)
[2018-07-27 08:00] VITALS: BP 168/90
[2018-07-27 12:00] VITALS: BP 181/81
[2018-07-27 16:00] VITALS: BP 170/86
[2018-07-27 20:00] VITALS: BP 182/78; BP 191/77
[2018-07-28] VITALS: BP 182/79
[2018-07-28 06:35] LABS: BASO % 0.4 % (0.0-1.0); EOS % 0.8 % (1.0-4.0); HEMATOCRIT 26.5 % (37.0-47.0); HEMOGLOBIN 8.1 g/dl (12.0-16.0); LYMPH # 1.2 10*3/uL (1.3-4.4); LYMPH % 23.6 % (27.0-41.0); MEAN CORPUSCULAR HGB 28.4 pg (27.0-31.0); MEAN CORPUSCULAR HGB CONC 30.6 g/dl (33.0-37.0); MONO # 0.7 10*3/uL (0.1-1.0); MONO % 14.8 % (3.0-9.0); PLATELET COUNT AUTOMATED 274 10*3/uL (130-400); RED BLOOD COUNT 2.85 10*6/uL (4.10-5.10); RED CELL DISTRI WIDTH 15.3 % (0-14.5)
[2018-07-28 07:00] LABS: POTASSIUM 4.3 mmol/L (3.5-5.1)
[2018-07-28 07:01] LABS: CREATININE 1.68 mg/dL (0.55-1.02)
[2018-07-28 08:00] VITALS: BP 176/88
[2018-07-28 12:00] VITALS: BP 183/79
[2018-07-28 16:00] VITALS: BP 138/88
[2018-07-28 20:00] VITALS: BP 140/90
[2018-07-29] VITALS (7 sets, daily range): BP systolic 136–190; BP diastolic 60–90
[2018-07-29 06:12] LABS: BASO % 0.6 % (0.0-1.0); EOS # 0.2 10*3/uL (0.0-0.4); HEMATOCRIT 26.5 % (37.0-47.0); HEMOGLOBIN 8.3 g/dl (12.0-16.0); LYMPH # 1.4 10*3/uL (1.3-4.4); LYMPH % 25.6 % (27.0-41.0); MEAN CELL VOLUME 93.3 fl (81.0-99.0); MEAN CORPUSCULAR HGB 29.2 pg (27.0-31.0); MEAN CORPUSCULAR HGB CONC 31.3 g/dl (33.0-37.0); MEAN PLATELET VOLUME 9.2 fl (9.6-12.3); MONO # 0.6 10*3/uL (0.1-1.0); MONO % 11.7 % (3.0-9.0); NEUT # 3.1 10*3/uL (2.3-7.9); NEUT % 58.7 % (47.0-73.0); PLATELET COUNT AUTOMATED 257 10*3/uL (130-400); RED BLOOD COUNT 2.84 10*6/uL (4.10-5.10); RED CELL DISTRI WIDTH 15.2 % (0-14.5); WHITE BLOOD COUNT 5.3 10*3/uL (4.8-10.8)
[2018-07-29 06:38] LABS: CREATININE 1.72 mg/dL (0.55-1.02); POTASSIUM 3.9 mmol/L (3.5-5.1)
[2018-07-30] VITALS: BP 160/90
[2018-07-30 06:48] LABS: CREATININE 1.67 mg/dL (0.55-1.02); POTASSIUM 3.6 mmol/L (3.5-5.1)
[2018-07-30 12:00] VITALS: BP 168/86
[2018-07-30 16:00] VITALS: BP 186/74
[2018-07-31] VITALS (9 sets, daily range): BP systolic 150–200; BP diastolic 75–98
[2018-07-31 06:26] LABS: CREATININE 1.72 mg/dL (0.55-1.02); POTASSIUM 3.7 mmol/L (3.5-5.1)
[2018-07-31 06:39] LABS: BASO % 0.3 % (0.0-1.0); EOS # 0.3 10*3/uL (0.0-0.4); EOS % 5.2 % (1.0-4.0); HEMATOCRIT 26.1 % (37.0-47.0); HEMOGLOBIN 8.2 g/dl (12.0-16.0); LYMPH # 1.1 10*3/uL (1.3-4.4); LYMPH % 17.7 % (27.0-41.0); MEAN CELL VOLUME 93.5 fl (81.0-99.0); MEAN CORPUSCULAR HGB 29.4 pg (27.0-31.0); MEAN CORPUSCULAR HGB CONC 31.4 g/dl (33.0-37.0); MEAN PLATELET VOLUME 10.1 fl (9.6-12.3); MONO # 0.5 10*3/uL (0.1-1.0); MONO % 8.6 % (3.0-9.0); NEUT % 67.9 % (47.0-73.0); PLATELET COUNT AUTOMATED 269 10*3/uL (130-400); RED BLOOD COUNT 2.79 10*6/uL (4.10-5.10); RED CELL DISTRI WIDTH 15.1 % (0-14.5); WHITE BLOOD COUNT 5.9 10*3/uL (4.8-10.8)
[2018-08-01] VITALS (7 sets, daily range): BP systolic 121–195; BP diastolic 64–89
[2018-08-01 06:55] LABS: CREATININE 1.8 mg/dL (0.55-1.02); POTASSIUM 3.6 mmol/L (3.5-5.1)
[2018-08-02] VITALS: BP 186/77
[2018-08-02 00:24] VITALS: BP 168/84
[2018-08-02 06:40] LABS: CREATININE 1.93 mg/dL (0.55-1.02); POTASSIUM 3.8 mmol/L (3.5-5.1)
[2018-08-02 08:00] VITALS: BP 191/75
[2018-08-02 16:00] VITALS: BP 188/78
[2018-08-02 17:06] LABS: BILIRUBIN NEGATIVE (NEGATIVE); BLOOD 1+ (NEGATIVE); CLARITY SL CLOUDY (CLEAR); COLOR YELLOW (YELLOW); GLUCOSE 2+ (NEGATIVE); KETONE NEGATIVE (NEGATIVE); LEUKO ESTERASE TRACE (NEGATIVE); NITRITE NEGATIVE (NEGATIVE); PH 5.5 (5.0-9.0); UROBILINOGEN 0.2 E.U./dl (0.2-1.0)
[2018-08-02 17:17] LABS: BACTERIA 1+; RBC 16-20 rbc/hpf (0-2); WBC 16-20 wbc/hpf (0-5); YEAST 3+
[2018-08-02 20:00] VITALS: BP 190/86
[2018-08-03] VITALS: BP 183/73
[2018-08-03 06:49] LABS: BASO # 0.1 10*3/uL (0.0-0.1); BASO % 0.7 % (0.0-1.0); EOS # 0.4 10*3/uL (0.0-0.4); EOS % 6.1 % (1.0-4.0); HEMATOCRIT 24.9 % (37.0-47.0); HEMOGLOBIN 7.9 g/dl (12.0-16.0); LYMPH # 1.3 10*3/uL (1.3-4.4); LYMPH % 18.4 % (27.0-41.0); MEAN CELL VOLUME 92.9 fl (81.0-99.0); MEAN CORPUSCULAR HGB 29.5 pg (27.0-31.0); MEAN CORPUSCULAR HGB CONC 31.7 g/dl (33.0-37.0); MEAN PLATELET VOLUME 9.4 fl (9.6-12.3); MONO # 0.6 10*3/uL (0.1-1.0); NEUT # 4.5 10*3/uL (2.3-7.9); NEUT % 65.5 % (47.0-73.0); PLATELET COUNT AUTOMATED 258 10*3/uL (130-400); RED BLOOD COUNT 2.68 10*6/uL (4.10-5.10); RED CELL DISTRI WIDTH 15.5 % (0-14.5); WHITE BLOOD COUNT 6.9 10*3/uL (4.8-10.8)
[2018-08-03 07:17] LABS: CREATININE 1.99 mg/dL (0.55-1.02)
[2018-08-03 08:00] VITALS: BP 160/110
[2018-08-03 12:00] VITALS: BP 170/69
[2018-08-03 16:00] VITALS: BP 189/77
[2018-08-03 20:00] VITALS: BP 147/73
[2018-08-04] VITALS: BP 154/71
[2018-08-04 06:52] LABS: BASO # 0.1 10*3/uL (0.0-0.1); BASO % 0.6 % (0.0-1.0); EOS # 0.3 10*3/uL (0.0-0.4); EOS % 3.7 % (1.0-4.0); HEMATOCRIT 24.9 % (37.0-47.0); HEMOGLOBIN 7.7 g/dl (12.0-16.0); LYMPH # 1.3 10*3/uL (1.3-4.4); LYMPH % 15.4 % (27.0-41.0); MEAN CORPUSCULAR HGB 29.1 pg (27.0-31.0); MEAN CORPUSCULAR HGB CONC 30.9 g/dl (33.0-37.0); MONO # 0.8 10*3/uL (0.1-1.0); NEUT # 5.9 10*3/uL (2.3-7.9); NEUT % 70.9 % (47.0-73.0); PLATELET COUNT AUTOMATED 270 10*3/uL (130-400); RED BLOOD COUNT 2.65 10*6/uL (4.10-5.10); RED CELL DISTRI WIDTH 15.5 % (0-14.5); WHITE BLOOD COUNT 8.4 10*3/uL (4.8-10.8)
[2018-08-04 07:19] LABS: CREATININE 2.06 mg/dL (0.55-1.02); POTASSIUM 4.4 mmol/L (3.5-5.1)
[2018-08-04 08:00] VITALS: BP 163/60
[2018-08-04 12:00] VITALS: BP 176/72
[2018-08-04 16:00] VITALS: BP 190/80
[2018-08-04 20:00] VITALS: BP 175/83
[2018-08-04 23:19] LABS: BILIRUBIN NEGATIVE (NEGATIVE); BLOOD TRACE-LYSED (NEGATIVE); CLARITY SL CLOUDY (CLEAR); COLOR YELLOW (YELLOW); GLUCOSE 1+ (NEGATIVE); KETONE NEGATIVE (NEGATIVE); LEUKO ESTERASE NEGATIVE (NEGATIVE); NITRITE NEGATIVE (NEGATIVE); PH 5.5 (5.0-9.0); SPECIFIC GRAVITY 1.025 (1.005-1.030); UROBILINOGEN 0.2 E.U./dl (0.2-1.0)
[2018-08-04 23:33] LABS: BACTERIA 1+; WBC TNTC wbc/hpf (0-5)
[2018-08-05] VITALS: BP 122/51
[2018-08-05 06:48] LABS: CREATININE 2.29 mg/dL (0.55-1.02); POTASSIUM 4.9 mmol/L (3.5-5.1)
[2018-08-05 08:00] VITALS: BP 142/65
[2018-08-05 11:03] LABS: CREATININE,URINE 86.8 mg/dL (Not Estab.)
[2018-08-05 12:00] VITALS: BP 120/63
[2018-08-05] MEDS ORDERED: LEVEMIR100 UNIT/1 SQ (14:35)
[2018-08-05] MEDS ORDERED: HYDRALAZINE HYD50 MG PO (14:35)
[2018-08-05] MEDS ORDERED: CARVEDILOL25 MG PO (14:35)
[2018-08-05] MEDS ORDERED: Humalog SQ (14:35)
[2018-08-05] MEDS ORDERED: AMLODIPINE BESYL5 MG PO (14:35)
[2018-08-05] MEDS ORDERED: ACCU-CHEK FAST1 EACH MC (14:35)
[2018-08-05] MEDS ORDERED: Vitamin D PO (14:35)
[2018-08-05] MEDS ORDERED: TEST STRIPS1 EACH MC (14:35)
[2018-08-05] MEDS ORDERED: IMDUR SA60 M1 PO (14:35)
[2018-08-05] MEDS ORDERED: CLONIDINE HCL0.3 MG PO (14:35)
[2018-08-05] MEDS ORDERED: PEN NEEDLE1 EAC6 MC (14:35)
[2018-10-01] MEDS ORDERED: GLYXAMBI 25 MG1 EACH PO (10:52)
[2018-10-01] MEDS ORDERED: VITAMIN D50000 UNIT PO (10:53)
[2018-10-01] MEDS ORDERED: HYDRALAZINE HYD50 MG PO (10:56)
[2018-10-01] MEDS ORDERED: LANTUS SOL100 UNIT/1 SC (10:59)
[2018-10-01] MEDS ORDERED: BUMETANIDE2 MG PO (11:00)
[2018-10-01] MEDS ORDERED: SANTYL30 GM T (11:01)
[2018-10-13] MEDS ORDERED: Zestril,Prinivi40 MG PO (12:55)
[2018-10-13] MEDS ORDERED: FUROSEMIDE40 MG PO (12:55)
[2018-10-13] MEDS ORDERED: HYDRALAZINE HYD50 MG PO (12:55)
== END 2018-08-05 18:08 | disposition home health service (06) | DRG 673 ==
LOC: ED 16:41 → EDHOLD 18:21 → 4E 18:21
PROVIDERS: Emergency Medicine; Family Medicine; Internal Medicine; Internal Medicine Critical Care Medicine; Internal Medicine Nephrology; ADMIT Internal Medicine
PROC: 0JBQ0ZZ Excision of Right Foot Subcutaneous Tissue and Fascia, Open Approach (ICD-10-PCS; principal; 2018-07-29)
PROC: 0HBNXZZ Excision of Left Foot Skin, External Approach (ICD-10-PCS; 2018-07-30)
DX: N17.0 Acute kidney failure with tubular necrosis (principal); I50.43 Acute on chronic combined systolic (congestive) and diastolic (congestive) heart failure; E43 Unspecified severe protein-calorie malnutrition; L03.115 Cellulitis of right lower limb; J45.901 Unspecified asthma with (acute) exacerbation; L03.116 Cellulitis of left lower limb; I16.1 Hypertensive emergency; L97.921 Non-pressure chronic ulcer of unspecified part of left lower leg limited to breakdown of skin; I13.0 Hypertensive heart and chronic kidney disease with heart failure and stage 1 through stage 4 chronic kidney disease, or unspecified chronic kidney disease; Z68.41 Body mass index [BMI] 40.0-44.9, adult; N04.9 Nephrotic syndrome with unspecified morphologic changes; R26.2 Difficulty in walking, not elsewhere classified; D64.9 Anemia, unspecified; E87.8 Other disorders of electrolyte and fluid balance, not elsewhere classified; E83.41 Hypermagnesemia; E66.01 Morbid (severe) obesity due to excess calories; E11.621 Type 2 diabetes mellitus with foot ulcer; L97.519 Non-pressure chronic ulcer of other part of right foot with unspecified severity; E11.65 Type 2 diabetes mellitus with hyperglycemia; K80.20 Calculus of gallbladder without cholecystitis without obstruction; K58.2 Mixed irritable bowel syndrome; M48.00 Spinal stenosis, site unspecified; K21.0 Gastro-esophageal reflux disease with esophagitis; E03.9 Hypothyroidism, unspecified; I27.20 Pulmonary hypertension, unspecified; L97.512 Non-pressure chronic ulcer of other part of right foot with fat layer exposed; D72.810 Lymphocytopenia; E03.8 Other specified hypothyroidism; E06.3 Autoimmune thyroiditis; D63.8 Anemia in other chronic diseases classified elsewhere; N18.3 Chronic kidney disease, stage 3 (moderate); E11.22 Type 2 diabetes mellitus with diabetic chronic kidney disease; K21.9 Gastro-esophageal reflux disease without esophagitis; Z98.51 Tubal ligation status; Z90.710 Acquired absence of both cervix and uterus; Z82.49 Family history of ischemic heart disease and other diseases of the circulatory system; Z88.9 Allergy status to unspecified drugs, medicaments and biological substances

== ENCOUNTER → 2018-09-16 | Outpatient (CLI) | payer BC ==
[~2018-09-16] MED LIST changes: +ACCU-CHEK FAST1 EACH MC; +AMARYL2 MG PO; +AMLODIPINE BESYL5 MG PO; +AMOXICILLIN500 M3 PO; +BUMETANIDE2 MG PO; +CARVEDILOL25 MG PO; +CLONIDINE HCL0.3 MG PO; +COLACE100 MG PO; +FEROSUL325 M1 PO; +HYDRALAZINE HYD50 MG PO; +Humalog SQ; +IMDUR SA60 M1 PO; +INVANZ1 GM/50 ML IV; +LANTUS SOL100 UNIT/1 SC; +LEVEMIR100 UNIT/1 SQ; +PEN NEEDLE1 EAC6 MC; +SANTYL30 GM T; +Synthroid,Levo50 MCG PO; +TEST STRIPS1 EACH MC; +TRAD5TAB1 PO; +VITAMIN D50000 UNIT PO; +Vitamin D PO; +Zestril,Prinivi40 MG PO
== END | disposition home or self-care (01) ==
LOC: WOUNDCARE 14:49
DX: E11.622 Type 2 diabetes mellitus with other skin ulcer (principal); L97.812 Non-pressure chronic ulcer of other part of right lower leg with fat layer exposed; E11.621 Type 2 diabetes mellitus with foot ulcer; L97.412 Non-pressure chronic ulcer of right heel and midfoot with fat layer exposed; E11.65 Type 2 diabetes mellitus with hyperglycemia

== ENCOUNTER 2018-11-26 01:16 | Inpatient (IN) | payer BC ==
[~2018-11-26] VITALS: Ht 160 cm; Wt 110.3 kg
--- NOTE | ~2018-11-26 | EKG ---
[place], [place] ELECTROCARDIOGRAM REPORT NAME: JOSH BLAKE I UNIT #: [id number] ROOM: 416 DOCTOR: ANNIE DRAFT REPORT BIRTHDATE: [birth year] [facility] Test Date: 2018-11-26 Test Time: 01:44:40 Pat Name: JOSH BLAKE Department: Room: 416 Gender: F Directory Clerk: Deejay Plascencia : 1965 Requested By: SEAN CLARKE Order Number: [id number] Reading MD: Mellissa Ovalle MD Measurements Intervals Singer Rate: 63 P: 72 MN: 158 QRS: -7 QRSD: 112 T: 4 QT: 477 QTc: 489 Interpretive Statements Sinus rhythm Borderline intraventricular conduction delay Borderline low voltage, extremity leads Borderline prolonged QT interval Compared to ECG 09/30/2018 22:58:20 No significant changes Electronically Signed On 11-27-2018 11:28:27 PDT by Mellissa Ovalle MD CM:EKGRPT:ELECTROCARDIOGRAM REPORT [id number] SEAN FAITH DRAFT REPORT SEAN CLARKE DO
--- NOTE | ~2018-11-26 | PR ---
[place], [place] PROGRESS NOTE NAME: JOSH BLAKE I UNIT #: [id number] ROOM: [facility] DOCTOR: EWA GORDON,NÉSTOR BIRTHDATE: [birth year] DOS: 11/29/2018 This is an addendum to the progress note done by the nurse practitioner Gracia Baeza. I agree with the assessment and plan, reviewed the labs and imaging, made the necessary changes in the note. Follow up with Dr. Reece from Infectious Disease at [facility]. Néstor Mcneil MD CM:PNTRANS [id number] NÉSTOR MCNEIL MD 12/05/18 0117 interface
--- NOTE | ~2018-11-26 | WRIGHTHP ---
[place], [place] PATIENT HISTORY AND PHYSICAL EXAM [id number] UNIT #: [id number] ROOM: 416 DOCTOR: MICKI JUNE DPM BIRTHDATE: [birth year] DOS: 11/26/2018 INDICATION NOTE The patient is seen at bedside for followup regarding right calcaneal fracture with probable osteomyelitis with diabetic ulcer of the plantar wound of the right heel. She expressed that this may have been a fracture. She heard a pop sound and subsequently she has developed a wound. She is a very poor historian and does not provide much of the detail to her history. She is set up for surgery today at [facility] as an inpatient for open reduction and internal/possible external fixation, bone debridement, Achilles tendon lengthening, possible application of external fixator with Integra graft. She understands pros, cons, risks, benefits. She understands she is a high risk patient. She understands she is at risk for limb loss. With this, she agreed to consent. She agreed to site marking. She agreed to perioperative management. MICKI JUNE DPM CM:HISPHYS:PATIENT HISTORY AND PHYSICAL EXAMINATION 1616 1639 MICKI JUNE DPM 11/27/18 1708 interface
--- NOTE | ~2018-11-26 | O ---
[place], [place] OPERATIVE NOTE NAME: JOSH BLAKE I UNIT #: [id number] ROOM: [facility] DOCTOR: SHAYLEE MICKI HYATT BIRTHDATE: [birth year] DOS: 11/27/2018 SURGEON: Dr. June. ASSISTANTS: 1. Dr. James Alejo. 2. Roni Burnett, PGY3. 3. Shun Martinez, PGY2. PREOPERATIVE DIAGNOSES: 1. Osteomyelitis, right calcaneus. 2. Tongue-type fracture, right calcaneus. 3. Gastroc soleus equinus. 4. Ankle joint equinus. 5. Ankle instability. POSTOPERATIVE DIAGNOSES: 1. Osteomyelitis, right calcaneus. 2. Tongue-type fracture, right calcaneus. 3. Gastroc soleus equinus. 4. Ankle joint equinus. 5. Ankle instability. PROCEDURES: 1. Achilles tendon lengthening. 2. Incision and drainage, bone debridement, bone biopsy of the right calcaneus plantarly. 3. Open reduction and internal fixation done percutaneously. 4. Insertion of antibiotic cement with 2 grams of vancomycin. 5. Reduction and stabilization of ankle joint. 6. Application of multilevel Martin external fixator. 7. Application of Integra 2 x 2 graft. 8. Application of negative pressure therapy. DESCRIPTION OF PROCEDURE: The patient was seen in preoperative holding area. Appropriate site marking was performed. She concurred with the site marking with the consent and perioperative management. She was brought into OR, placed well-padded OR table where anesthesia was achieved. Once the anesthesia was achieved, right foot and leg were prepped and draped in the usual sterile fashion. Appropriate time-out was performed, everybody in the room concurred. PROCEDURE #1: Achilles tendon lengthening. Attention was directed to the posterior aspect of the right lower leg where a small stab incision was made vertically in the distal portion of the Achilles and cut medially, 2 cm proximal a stab incision was made vertically and was cut transversely and 2 cm proximal a medial base Achilles tendon tenotomy was performed, allowing for careful dissection Achilles tendon lengthening. This was increased through range of motion of ankle joint. PROCEDURE #2: Incision and drainage, bone debridement, bone biopsy of the right [place], [place] OPERATIVE NOTE NAME: JOSH BLAKE I UNIT #: [id number] ROOM: [facility] DOCTOR: MICKI JUNE DPM BIRTHDATE: [birth year] calcaneus. At this time, using a rongeur and curette, the bone was excised, resected and debrided. Bone was sent for Gram stain, aerobic, anaerobic, fungal, acid fast as well as biopsy of the right calcaneus. This was irrigated tremendously. PROCEDURE #3: Insertion of antibiotic cement. Cerement and 2 grams of vancomycin were packed tightly into the calcaneus where the fracture was and where the ulceration was. PROCEDURE #4: Reduction of the ankle joint. The ankle joint was reduced, checked under fluoroscopy and noted to be held in good alignment and temporarily held there. PROCEDURE #5: Percutaneous reduction and internal fixation of the calcaneus. Once alignment was maintained and the reduction was occurred, a large Smith clamp was used to help stabilize this area. This was fixated with four 4.0 cortical screws, the fact that there was no gross pus, no joselito odor, this appeared to be an ulcer-induced fracture from significant malalignment. By clinical exam, it was thought reduction was necessary with hardware, with antibiotic cement, washout, debridement and IV antibiotics and this should be maintained well. At this time, this fracture was reduced with four 4.0 solid cortical screws. This was done under fluoroscopy. Next, a multilevel external fixator was applied, 2 half pins in the tibia, 2 in the calcaneus, 2 in the mid foot at this time with the ankle held in a reduced position and reduced in position, this was locked into place, stabilizing the right lower extremity. PROCEDURE #6: Application of Integra graft. The graft was applied to the wound. The wound measures 3.5 cm x 3.5 cm down to bone. The Integra graft was sealed with wong and Adaptic. PROCEDURE #7: Application of negative pressure therapy. Wound VAC was applied to the right. This is set at 200 and continuous. Dry sterile dressing was applied to the right lower extremity with Bryan bandages for compression. There is tremendous amount of fluid in the lower legs. [place], [place] OPERATIVE NOTE NAME: JOSH BLAKE Babs UNIT #: [id number] ROOM: [facility] DOCTOR: MICKI JUNE DPM BIRTHDATE: [birth year] MICKI JUNE DPM CM:OPRECORD:OPERATIVE NOTE 1616 1754 MICKI JUNE DPM 12/09/18 0758 interface
--- NOTE | ~2018-11-26 | WRIGHTHP ---
[place], [place] PATIENT HISTORY AND PHYSICAL EXAM [id number] #: [id number] ROOM: [facility] DOCTOR: MICKI JUNE DPM BIRTHDATE: [birth year] DOS: 11/26/2018 LOWER EXTREMITY PHYSICAL EXAM VASCULAR: She has tremendous amount of pitting edema 4/5 bilaterally. She has no breakdown of the venous legs but she has three ulcerations secondary to massive amount of edema of both lower extremities. She has had an arterial testing done demonstrating she has some vascular disease but proposed adequate for surgery and for repair of the wound and she had a CTA done at, I believe, which demonstrated she had good flow to her feet bilaterally. NEUROLOGICAL: She has complete loss of protective sensation. MUSCULOSKELETAL: She has significant instability of her right ankle and hindfoot with subluxation of this orthopedic exam consistent with osteomyelitis, also a tongue-type fracture of the right calcaneus. Gastroc soleus equinus with ankle joint contracture. MICKI JUNE DPM CM:HISPHYS:PATIENT HISTORY AND PHYSICAL EXAMINATION 1616 1659 MICKI JUNE DPM 12/09/18 0754 interface
--- NOTE | ~2018-11-26 | PR ---
[place], [place] PROGRESS NOTE NAME: JOSH BLAKE I UNIT #: [id number] ROOM: 409 DOCTOR: IRVING MORENO MD BIRTHDATE: [birth year] DOS: 11/30/2018 SUBJECTIVE: The patient is very weak. No new complaints. OBJECTIVE: GENERAL APPEARANCE: The patient is alert and oriented x 3, in no visible distress. VITAL SIGNS: Blood pressure 151/59, heart rate of 74 beats per minute, breathing 20 times per minute, temperature 98.5 degrees Fahrenheit. HEENT AND NECK: Exam within normal limits. CARDIOVASCULAR SYSTEM: Heart rate is regular in rate and rhythm. S1 and S2 normally audible. LUNGS: Clear to auscultation. ABDOMEN: Soft, nontender. No obvious organomegaly. Bowel sounds are present. Obesity. EXTREMITIES: Without significant cyanosis or edema. Severe peripheral volume overload and anasarca. IMPRESSION: 1. Status post right foot surgery and external fixation for osteomyelitis of the right calcaneum with right calcaneal fracture and Achilles tendon lengthening. 2. Severe peripheral volume overload. The patient is being diuresed with Lasix and was given albumin. 3. Chronic kidney disease, stage 3. 4. Benign essential hypertension being treated and controlled. 5. Type 2 diabetes mellitus. Blood sugars are being monitored and controlled. 6. Severe hypoglycemia, resolved. 7. Coronary artery disease of the [place] vessels without chest pains. 8. Advanced adult failure to thrive. 9. Nephrotic syndrome. 10. Diabetic nephropathy, stage 3. 11. Severe protein-calorie malnutrition. 12. Diabetic right foot ulcer history. 13. Morbid obesity. 14. Chronic systolic/diastolic type congestive heart failure. 15. History of ulcerative colitis. 16. Hypothyroidism, replaced with supplements. [place], [place] PROGRESS NOTE NAME: JOSH BLAKE I UNIT #: [id number] ROOM: 409 DOCTOR: IRVING MORENO MD BIRTHDATE: [birth year] IRVING MORENO MD CM:PNTRANS 1827 0037 IRVING MORENO MD 12/01/18 0037 interface
--- NOTE | ~2018-11-26 | DS ---
[place], [place] DISCHARGE SUMMARY [id number] #: [id number] ROOM: [facility] DOCTOR: IRVING MORENO MD BIRTHDATE: [birth year] DOS: 12/02/2018 DISCHARGE DIAGNOSES: 1. Acute respiratory failure with intubation and mechanical ventilation. 2. [id number] systolic/diastolic type congestive heart failure. 3. Anasarca, severe peripheral volume overload. 4. Severe hypoproteinemia and severe protein-calorie malnutrition. 5. Nephrotic syndrome. 6. Chronic kidney disease, stage 3. 7. Benign essential hypertension. 8. Type 2 diabetes mellitus. 9. Severe hypoglycemia. 10. Coronary artery disease of the [place] vessels. 11. Advanced adult failure to thrive. The patient is chronically sick with suboptimal long-term prognosis. 12. Hypothyroidism. 13. History of morbid obesity. 14. Diabetic right foot ulcer, osteomyelitis, status post surgery. Achilles tendon repair, calcaneus fracture, now with external fixators. The patient on IV meropenem. 15. Benign essential hypertension. 16. History of ulcerative colitis. 17. Gastroesophageal reflux disease and esophagitis. 18. Hypothyroidism. 19. History of diabetic retinopathy. HOSPITAL COURSE: The patient was admitted when she was transferred from [facility] to [facility] with severe persistent hypoglycemia. The patient's blood sugars were going as low as 30s, and she was treated with dextrose infusion as well as D50 boluses as needed. All her diabetic medicines were stopped, and it took the patient several days to get to normal sugars, around 100. That is when the dextrose infusion was stopped and blood sugar monitoring was performed every hour during this process. 1. Acute respiratory failure with severe bradycardia and hypotension, which required resuscitation, intubation and mechanical ventilation. 2. Type 2 diabetes mellitus. Blood sugars are being monitored and treated. 3. Benign essential hypertension. The patient is hypertensive at this time. We will put an NG tube and treat with clonidine, which she was taking before and amlodipine along with Coreg. 4. Chronic constipation, being treated with Colace. 5. Advanced adult failure to thrive. We are taking bedsore precautions, air mattress and every 2 hour turning. 6. Anasarca, hypoproteinemia, with an albumin level of 1.7, severe protein-calorie malnutrition. 7. The patient is status post right foot surgery, external fixators for osteomyelitis of the right calcaneum and right calcaneum fracture with Achilles tendon lengthening and repair. 8. Chronic kidney disease stage 3 and diabetic nephropathy. 9. Hypothyroidism. The patient remains on thyroid supplements. [place], [place] DISCHARGE SUMMARY NAME: JOSH BLAKE I UNIT #: [id number] ROOM: [facility] DOCTOR: IRVING MORENO MD BIRTHDATE: [birth year] PRESENT MANAGEMENT: The patient intubated and on mechanical ventilation. Lovenox 40 mg subcutaneously b.i.d., DuoNebs every 4 hours, levothyroxine 50 mcg daily, hydralazine 100 mg every 8 hours, isosorbide 60 mg a day, furosemide 40 mg b.i.d., Colace 100 mg b.i.d., clonidine 0.3 mg b.i.d., IV meropenem 1 g b.i.d., and hydromorphone 0.5 mg every 4 hours p.r.n. IRVING MORENO MD CM:EMIL [id number] IRVING MORENO MD 12/02/18 0762 interface
--- NOTE | ~2018-11-26 | PR ---
[place], [place] PROGRESS NOTE NAME: JOSH BLAKE I UNIT #: [id number] ROOM: [facility] DOCTOR: IRVING MORENO MD BIRTHDATE: [birth year] DOS: 12/01/2018 SUBJECTIVE: The patient is feeling somewhat better today. OBJECTIVE: VITAL SIGNS: Blood pressure 155/58, heart rate of 69 beats per minute, breathing 20 times per minute, temperature 98.1 degrees Fahrenheit. GENERAL APPEARANCE: The patient is alert and oriented x 3, in no visible distress. HEENT AND NECK: Exam within normal limits. CARDIOVASCULAR SYSTEM: Heart rate is regular in rate and rhythm. S1 and S2 normally audible. LUNGS: Clear to auscultation. ABDOMEN: Soft, nontender. No obvious organomegaly. Bowel sounds are present. Obesity. Also severe edema in the lower body below her chest. EXTREMITIES: Without significant cyanosis or edema. IMPRESSION: 1. The patient is status post right foot surgery and external fixation for osteomyelitis of the right calcaneum and right calcaneal fracture with Achilles tendon lengthening. The patient worked with physical therapy and to go to rehab at an LTAC facility. 2. Severe peripheral volume overload, being diuresed with Lasix and given albumin. 3. Chronic kidney disease stage 3. 4. Benign essential hypertension being treated and controlled. 5. Type 2 diabetes mellitus. Blood sugars are being monitored and treated and followed. 6. Recent severe hypoglycemia has resolved with an extensive treatment. 7. Coronary artery disease of the [place] vessels without chest pains. 8. Nephrotic syndrome and hypoproteinemia. 9. Severe protein calorie malnutrition. 10. Chronic systolic/diastolic type congestive heart failure. 11. Advanced adult failure to thrive. The patient worked with physical therapy. Long-term prognosis is poor. 12. Hypothyroidism, replaced with supplements. [place], [place] PROGRESS NOTE NAME: JOSH BLAKE I UNIT #: [id number] ROOM: [facility] DOCTOR: IRVING MORENO MD BIRTHDATE: [birth year] IRVING MORENO MD CM:PNTRANS 1945 IRVING MORENO MD 12/02/18 0146 interface
--- NOTE | ~2018-11-26 | PR ---
[place], [place] PROGRESS NOTE NAME: JOSH BLAKE I UNIT #: [id number] ROOM: 416 DOCTOR: HONG RUIZ MD BIRTHDATE: [birth year] DOS: 11/28/2018 SUBJECTIVE: The patient is resting, is not having any complaints. Appetite is poor. OBJECTIVE: VITAL SIGNS: Blood pressure is 130/57, pulse of 58, respirations 18, temperature 97.5. LUNGS: Diminished breath sounds. HEART: Regular. Diffuse anasarca noted. EXTREMITIES: Heavily bandaged with external fixators. ASSESSMENT AND PLAN: 1. Hypoglycemia. Blood sugars have improved. We will discontinue IV fluids, especially in a patient with anasarca. 2. Protein-calorie malnutrition. Basic metabolic panel yesterday showed a BUN of 50, creatinine of 1.58, GFR 34. 3. Poorly healing wounds. 4. Coronary artery disease, followed by Cardiology. 5. Adult failure to thrive and needs placement back to the detention. HONG RUIZ MD CM:PNTRANS 0810 0815 HONG RUIZ MD 11/28/18 1423 interface
--- NOTE | ~2018-11-26 | WRIGHTHP ---
[place], [place] PATIENT HISTORY AND PHYSICAL EXAM NAME: JOSH BLAKE I [facility] #: [id number] UNIT #: [id number] ROOM: 416 DOCTOR: IRVING MORENO MD BIRTHDATE: [birth year] DOS: 11/26/2018 HISTORY OF PRESENT ILLNESS: The patient is a 53-year-old female with a past medical history of; 1. Nephrotic syndrome. 2. Stage 2 with diabetic nephropathy. 3. Type 2 diabetes mellitus. 4. Severe protein-calorie malnutrition. 5. Diabetic right foot ulcer history. 6. History of morbid obesity. 7. Combined systolic/diastolic type chronic congestive heart failure. 8. Benign essential hypertension. 9. Ulcerative colitis. 10. Gastroesophageal reflux disease and esophagitis. 11. Hypothyroidism. 12. Chronic ulcer, status post skin grafting on the right anterior leg. 13. Chronic kidney disease stage 3. 14. Diabetic retinopathy. The patient presented to the Emergency Department, sent over from [facility] for feeling tired and visual changes and the patient's sugars were staying persistently low. For past 2 days, sugars were less than 50. The patient was having blackouts, vision will go dark. After initial treatment in the ER, the patient was admitted and continued on dextrose infusion and blood sugar monitoring. No chest pain, no shortness of breath, no other GI or urinary symptoms. The patient is chronically sick. REVIEW OF SYSTEMS: RESPIRATORY: Chronic shortness of breath. GASTROINTESTINAL: No nausea, vomiting, diarrhea, constipation. CARDIOVASCULAR SYSTEM: No chest pains or palpitations. FAMILY HISTORY: Noncontributory. PHYSICAL EXAMINATION: GENERAL: Alert, oriented, appears chronically sick. She is morbidly obese with a BMI of 44.5, generalized weakness. HEENT AND NECK: Extraocular movements are intact. Sclerae are anicteric. Oral mucosa is moist and clean. No obvious facial weakness. Neck is supple without any lymphadenopathy. No thyromegaly. No JVD. No carotid arterial bruits. LUNGS: Clear to auscultation. No wheezing. No rhonchi. CARDIOVASCULAR SYSTEM: Heart rate is regular in rate and rhythm. S1 and S2 normally audible. No significant murmur or any other abnormal cardiac sounds. ABDOMEN: Soft, nontender. No obvious organomegaly. Bowel sounds are present. No obvious herniation. EXTREMITIES: Chronic 3-4+ leg and pedal edema and an erythematous site of skin graft on the right anterior leg. CENTRAL NERVOUS SYSTEM: Alert and oriented x 3. Cranial nerves II-XII are intact. Speech is normal. The patient is able to move all extremities. Normal muscle strength. Deep tendon reflexes are equal on both sides. Plantars were [place], [place] PATIENT HISTORY AND PHYSICAL EXAM NAME: JOSH BLAKE I UNIT #: [id number] ROOM: [facility] DOCTOR: IRVING MORENO MD BIRTHDATE: [birth year] downgoing. LABORATORY DATA: Blood sugar of 33, BUN and creatinine of 55 and 1.7. Albumin level of 1.4. IMPRESSION: 1. The patient with severe hypoglycemia. She is a type 2 diabetic and is being treated with dextrose infusion and blood sugars are being monitored hourly. 2. The patient is chronically sick and malnourished and disabled. We will take bedsore precautions and fall precautions. The patient worked with physical therapy. 3. Type 2 diabetes mellitus. Blood sugars to be monitored and treated for hypoglycemia. 4. Benign essential hypertension, treated with amlodipine. Blood pressures to be monitored and treated. The patient also takes Coreg, clonidine. 5. Chronic constipation, treated with Colace. The patient has been moving her bowels. 6. Iron deficiency anemia, treated with supplements. 7. Chronic stasis dermatitis and severe leg and pedal edema to be followed by Podiatry and possibly treated with Unna boots. 8. Hypothyroidism, replaced with levothyroxine. 9. History of coronary artery disease of [place] vessels without chest pains. The patient remains on isosorbide. 10. Severe hypoglycemia, most likely secondary to oral hypoglycemics. The patient has been taking Tradjenta, glimepiride, Glyxambi. 11. Advanced adult failure to thrive, multiple medical problems, severe hypoproteinemia and suboptimal health. 12. Severe protein-calorie malnutrition. The patient is to be followed by Dietary. 13. Physical therapy consulted. IRVING MORENO MD CM:HISPHYS:PATIENT HISTORY AND PHYSICAL EXAMINATION 1006 1028 IRVING MORENO MD 11/26/18 1028 interface
--- NOTE | ~2018-11-26 | CON ---
[place], [place] REPORT OF CONSULTATION NAME: JOSH BLAKE I UNIT #: [id number] ROOM: [facility] DOCTOR: UMA MILLS,JULY BIRTHDATE: [birth year] DOS: 11/28/2018 HISTORY OF PRESENT ILLNESS: The patient is a 53-year-old female who was admitted from [facility]. Reviewing prior charts, she appears to be frequently admitted in June, September and November of this year. She was admitted this time for hypoglycemia. She had an x-ray that showed an oblique fraction of her calcaneus. Apparently, she had put her foot down there and heard a crunch, fractured her calcaneus. She had a chronic ulceration of her right heel, which according to the patient she was being [facility] as an [facility]. She had not been following with Podiatry as an outpatient. She was taken to surgery by Dr. Sethi yesterday and underwent debridement as well as bone biopsy, hardware placement through the calcaneus with possible osteomyelitis and vancomycin powder was packed in as well according to the Podiatry resident and an external fixator was placed. ID is now consulted for antibiotic management. The patient states she has been on many antibiotics recently. She has no idea what she has been on. There are no cultures in the system. I discussed with Podiatry residents. They are not aware of any cultures prior to yesterday's surgery having been obtained. Cultures and pathology are pending. Gram stain shows no organisms. The patient has had no fevers or chills. She did not have any leukocytosis at the time of admission. PAST MEDICAL HISTORY: As above. She has been receiving treatment in [place] as well, asthma, CHF, cholelithiasis, chronic kidney disease, diabetic retinopathy, diabetes, GERD, cataracts, cervical cancer, MRSA, hypertension, hypothyroidism, irritable bowel, ulcerations of her lower extremities, anemia, pleural effusions, pulmonary hypertension, obesity, spinal stenosis, cataract extraction, hysterectomy, tubal ligation, umbilical hernia repair, kidney biopsy. SOCIAL HISTORY: Nonsmoker, nondrinker, resident at [facility]. FAMILY MEDICAL HISTORY: Significant for father with coronary artery disease and goiter. Mother with coronary artery disease and thyroid disease. Sister with kidney disease and thyroid cancer. ALLERGIES: Include METFORMIN. CURRENT MEDICATIONS: Include Coreg, Dilaudid, Apresoline, Imdur, Lasix, Colace, Catapres. LABORATORY DATA: WBC 7.5, platelets 313. Sed rate of 94. BUN 50, creatinine 1.58, AST 77, ALT 33. C-reactive protein 3.63. REVIEW OF SYSTEMS: Alert and oriented, but a poor historian. No fevers or shaking chills. No nausea or vomiting. No diarrhea. No rash or itch. She has chronic lower extremity edema as well as warmth. Further review of systems is unremarkable. PHYSICAL EXAMINATION: VITAL SIGNS: Temperature 97.5, pulse 68, respirations 16, BP 140/62. [place], [place] REPORT OF CONSULTATION NAME: JOSH BLAKE I UNIT #: [id number] ROOM: [facility] DOCTOR: UMA MILLS,JULY BIRTHDATE: [birth year] GENERAL: A 53-year-old female who appears older than her stated age, chronically ill in appearance. HEAD, EYES, EARS, NOSE AND THROAT: Normocephalic. Oropharynx clear of exudates. NECK: Supple. No thrush. LUNGS: Diminished at bilateral bases. Respirations even and unlabored. HEART: Regular rhythm. No murmur appreciated. ABDOMEN: Soft, nontender, positive bowel sounds. EXTREMITIES: With bilateral lower extremity edema noted. Bilateral lower extremities wrapped to knees, right with an external fixator and wound VAC with small amount of bloody discharge in the tubing. SKIN: Warm, pale, dry, free of rashes. ASSESSMENT: Reportedly right diabetic foot ulcer, now with calcaneus fracture for which she underwent an open reduction and internal fixation and external fixator placement with hardware placed in the heel with possible osteomyelitis. Cultures and biopsy are pending. She has been treated reportedly for some months, possibly through [facility] for the foot. PLAN: At this point, I will give her no further antibiotics. I do not find any documentation of what she may have been on recently. There are no prior cultures for this. We will await pathology and cultures to guide possible antibiotic therapy. I did discuss the case with Podiatry resident. ADDENDUM Medical records were obtained from [facility]. The patient has been receiving Invanz 1 gram IV daily as well as amoxicillin 500 mg p.o. 3 times a day for osteomyelitis that was confirmed with an MRI of the right calcaneus. Her cultures are also available. She had an ESBL E. coli as well as Proteus and ampicillin sensitive Enterococcus, Citrobacter coagulase-negative staph. At this point, she will be placed on Merrem 1 gram IV q. 12 hours, which is adjusted for her renal insufficiency. The Merrem will cover the Enterococcus as well, but we will also keep on the amoxicillin 500 mg p.o. t.i.d. as Merrem is not quite as good for Enterococcus as Primaxin is. Upon discharge, she will resume her care with Dr. Reece from [facility] who is to follow her up later this month according to the notes on the chart. ADDENDUM I agree with the assessment and plan. I have reviewed the records from [facility] and also attested the addendum to the note. I reviewed the labs and imaging, made the necessary changes in the note. JULY LINA EATON [place], [place] REPORT OF CONSULTATION NAME: JOSH BLAKE I UNIT #: [id number] ROOM: [facility] DOCTOR: UMA BIRTHDATE: [birth year] Scarlet Hayes MD CM:CONSTR:REPORT OF CONSULTATION 1636 12/05/18 0303 interface
--- NOTE | ~2018-11-26 | PR ---
[place], [place] PROGRESS NOTE [id number] #: [id number] ROOM: 409 DOCTOR: UMA MILLS BIRTHDATE: [birth year] DOS: 11/29/2018 SUBJECTIVE: The patient is being followed for right calcaneus osteomyelitis. Her treatment is originally through [place]. She was admitted here and underwent ORIF of a right calcaneus fracture with hardware placement and external fixator placement per Dr. Sethi. Cultures and pathology from that are pending; however, she has been on IV ertapenem and amoxicillin per Dr. Reece in [place] for osteomyelitis of the heel that was demonstrated on an MRI. Cultures at that time grew ESBL E. coli, Proteus, Enterococcus that was sensitive to ampicillin, Citrobacter and coagulase-negative staph. Here, she is on Merrem and amoxicillin. She is alert and oriented. Had a little nausea this morning. No emesis, no diarrhea, no fevers. Some pain in the right foot and leg. No cough or shortness of breath. LABORATORY DATA: Her cultures are all pending. BUN 49, creatinine 1.59. PHYSICAL EXAMINATION: VITAL SIGNS: Temperature 97.8, pulse 74, respirations 18, BP 143/56. GENERAL: A 53-year-old obese female, in no acute distress. HEENT: Normocephalic, no thrush. NECK: Supple. LUNGS: Clear to auscultation bilaterally. Respirations even and unlabored. HEART: Regular rhythm with murmur noted. ABDOMEN: Soft, nondistended, positive bowel sounds. EXTREMITIES: Significant edema, bilateral lower extremities. She is wrapped bilaterally to knees, right foot dressing, also has a wound VAC in place and an external fixator. She has a PICC in the right upper extremity. Dressing dry and intact. No signs of phlebitis. ASSESSMENT: Right calcaneus osteomyelitis, which is being treated per Dr. Reece from [place] as well as now status post debridement and open reduction and internal fixation of right calcaneus fracture per Dr. Sethi. Follow up on pathology and cultures here. Her prior cultures from [place] grew ESBL E. coli, Proteus, Enterococcus that was sensitive to ampicillin, Citrobacter and coagulase-negative staph. PLAN: We will continue the Merrem and amoxicillin. Follow up on her pathology and cultures. On discharge, her care can be resumed by Dr. Reece from [place]. JAYE EATON CNP [place], [place] PROGRESS NOTE NAME: JOSH BLAKE I UNIT #: [id number] ROOM: 409 DOCTOR: UMA MILLS BIRTHDATE: [birth year] Scarlet MD Freddy CM:PNTRANS [id number] UMA MILLS 11/29/18 155 interface
--- NOTE | ~2018-11-26 | EKG ---
[place], [place] ELECTROCARDIOGRAM REPORT NAME: JOSH BLAKE I UNIT #: [id number] ROOM: 416 DOCTOR: ANNIE DRAFT REPORT BIRTHDATE: [birth year] [facility] Test Date: 2018-11-27 Test Time: 11:14:14 Pat Name: JOSH BLAKE Department: Room: 416 2 Gender: F Marketing Project Coordinator: Imelda Ocampo : 1965 Requested By: MELLISSA BURKS Order Number: [id number] Reading MD: Mellissa Burks MD Measurements Intervals [place] Rate: 71 P: 56 AL: 150 QRS: 18 QRSD: 110 T: 14 QT: 486 QTc: 529 Interpretive Statements Sinus rhythm Low voltage, extremity leads Minimal ST elevation, lateral leads Prolonged QT interval Baseline wander in lead(s) V5 Compared to ECG 09/30/2018 22:58:20 ST (T wave) deviation now present Prolonged QT interval now present Electronically Signed On 11-27-2018 11:04:48 PDT by Mellissa Burks MD CM:EKGRPT:ELECTROCARDIOGRAM REPORT 1114 1104 MELLISSA BURKS MD EPIPHANY DRAFT REPORT MELLISSA BURKS MD
--- NOTE | ~2018-11-26 | PR ---
[place], [place] PROGRESS NOTE NAME: JOSH BLAKE I UNIT #: [id number] ROOM: 409 DOCTOR: HONG RUIZ MD BIRTHDATE: [birth year] DOS: SUBJECTIVE: The patient is doing fairly well this morning. She does not have any new complaints. OBJECTIVE: VITAL SIGNS: Graphic trend shows blood pressure 111/59, pulse of 70, respirations 16, temperature 97.9. LUNGS: Diminished breath sounds, clear. HEART: Regular. ABDOMEN: Obese. EXTREMITIES: Heavily bandaged with external fixators. ASSESSMENT AND PLAN: 1. The patient with surgery for osteomyelitis of the right calcaneum with fracture of the right calcaneum and Achilles tendon lengthening, external fixator placement. The patient is most likely unable to go home, which she was planning to. She will most likely need to go back to the rehabilitation. We will make arrangements tomorrow once Social Service is available. 2. Chronic kidney disease, kidney functions stable, stage 3. 3. Anasarca, on albumin and Lasix combination. 4. Type 2 diabetes mellitus, blood sugar is controlled. 5. Hypoglycemia, which has resolved. 6. Benign hypertension, controlled. HONG RUIZ MD CM:PNTRANS 0834 1020 HONG RUIZ MD 11/29/18 1020 interface
--- NOTE | ~2018-11-26 | EKG ---
[place], [place] ELECTROCARDIOGRAM REPORT NAME: JOSH BLAKE I UNIT #: [id number] ROOM: [facility] DOCTOR: ANNIE DRAFT REPORT BIRTHDATE: [birth year] [facility] Test Date: 2018-12-02 Test Time: 00:12:34 Pat Name: JOSH BLAKE Department: Room: [place] [address] Gender: F Filenet Admin: Citlaly Scott : 1965 Requested By: YANDEL CANDELARIO Order Number: [id number] Reading MD: Maged Baeza MD Measurements Intervals [place] Rate: 86 P: 73 LA: 167 QRS: -14 QRSD: 116 T: 27 QT: 400 QTc: 479 Interpretive Statements Sinus rhythm Probable left atrial enlargement Nonspecific intraventricular conduction delay Low voltage, extremity leads Compared to ECG 11/27/2018 11:14:14 Intraventricular conduction delay now present ST (T wave) deviation no longer present Prolonged QT interval no longer present Electronically Signed On 12-03-2018 12:27:38 PDT by Maged Baeza MD CM:EKGRPT:ELECTROCARDIOGRAM REPORT 0012 1227 YANDEL FAITH DRAFT REPORT YANDEL CANDELARIO DO
--- NOTE | ~2018-11-26 | PR ---
[place], [place] PROGRESS NOTE NAME: JOSH BLAKE I UNIT #: [id number] ROOM: 416 DOCTOR: IRVING MORENO MD BIRTHDATE: [birth year] DOS: 11/27/2018 SUBJECTIVE: The patient is feeling about the same. No new complaints. OBJECTIVE: VITAL SIGNS: Blood pressure 135/60, heart rate 69 beats per minute, breathing 20 times per minute, temperature 98 degrees Fahrenheit. GENERAL APPEARANCE: The patient is alert and oriented x 3, in no visible distress, except for generalized weakness, morbid obesity. HEENT AND NECK: Exam within normal limits. CARDIOVASCULAR SYSTEM: Heart rate is regular in rate and rhythm. S1 and S2 normally audible. LUNGS: Clear to auscultation. ABDOMEN: Soft, nontender. No obvious organomegaly. Bowel sounds are present. EXTREMITIES: Some cellulitis involving left lower extremity. IMPRESSION AND PLAN: 1. The patient is undergoing wound debridement on left lower extremity by Podiatry and she is being checked for osteomyelitis. The patient is not a good candidate for general anesthesia, so she will get the procedure done under local anesthesia. 2. Severe hypoglycemia, now improving, blood sugars now ranging between 74-140. 3. Advance adult failure to thrive, morbid obesity. The patient is chronically sick and malnourished and disabled with poor prognosis. 4. Type 2 diabetes mellitus. Blood sugar is being monitored and treated, presently hypoglycemic. 5. Benign essential hypertension, treated and controlled. 6. Chronic constipation. The patient remains on Colace and moving her bowels. 7. Chronic skin changes in lower extremities and chronic leg and pedal edema. 8. Hypothyroidism, replaced with levothyroxine. 9. Coronary artery disease of [place] vessels, without any chest pains. 10. Severe protein-calorie malnutrition. The patient is working with Dietary. 11. Advanced adult failure to thrive and disability. The patient is working with physical Therapy. [place], [place] PROGRESS NOTE NAME: JOSH BLAKE I UNIT #: [id number] ROOM: 416 DOCTOR: IRVING MORENO MD BIRTHDATE: [birth year] IRVING MORENO MD CM:PNTRANS 1231 04 IRVING MORENO MD 11/27/186 interface
--- NOTE | ~2018-11-26 | CON ---
[place], [place] REPORT OF CONSULTATION NAME: JOSH BLAKE I UNIT #: [id number] ROOM: [facility] DOCTOR: AYLIN GORDON,WILLY BIRTHDATE: [birth year] DOS: 12/01/2018 HISTORY OF PRESENT ILLNESS: At 2334 hours rapid response was called and at the time that I arrived in the 4th floor to evaluate the patient, her condition had deteriorated to a cardiac arrest. Chest compressions were started and hand bag valve ventilation in progress. She was unresponsive, but had some agonal-type breathing. research & analytics manager showed a heart rate in the 20s and she was given atropine 0.5 mg followed by a second dose of 0.5 mg with some improvement in the cardiac rate. This actually deteriorated and no palpable pulse was obtained neither at the carotid or the femoral level. Compressions were continued. Epinephrine was given 1 mg followed by a second mg 5 minutes later and heart activity was restored. She was intubated using the kaleidoscope. The procedure including clearing the mouth of secretions, visualizing the vocal cords, passing the tube through the cords, breath sounds on both sides of the chest were normal and no sounds were heard over the epigastrium. The tube placement was secured by a tube sullivan 24 cm at the lip line and chest x-ray has been ordered. The tube size was 7.5 and CO2 was positive. The press service reader showed a sinus tachycardia in the 120 range and her blood pressure was 163/93. Ventilator settings were ordered and subsequently adjusted. Her examination when I first arrived showed female that was pale with poor respiratory effort and bradycardia. Neck veins were distended bilaterally. She had impressive edema both in the trunk and in the extremities. There was surgical hardware in the right lower leg, pins and bars were noted. The abdomen was without masses. Dr. Carvalho was advised of the patient's condition and the patient was transferred to the ICU for ongoing treatment. Cardiopulmonary arrest, successful resuscitation. CONDITION: Critical. Critical care time was 35 minutes. WILLY VIERA MD CM:CONSTR:REPORT OF CONSULTATION 0646 12/02/18 0656 interface
[~2018-11-26 01:16] MED LIST changes: -AMARYL2 MG PO; -AMOXICILLIN500 M3 PO; -COLACE100 MG PO; -FEROSUL325 M1 PO; -INVANZ1 GM/50 ML IV; -Synthroid,Levo50 MCG PO; -TRAD5TAB1 PO
[2018-11-26 01:18] VITALS: BP 148/66
[2018-11-26 01:58] LABS: BASO # 0.1 10*3/uL (0.0-0.1); BASO % 0.5 % (0.0-1.0); EOS # 0.2 10*3/uL (0.0-0.4); EOS % 2.2 % (1.0-4.0); HEMATOCRIT 30.1 % (37.0-47.0); LYMPH # 1.1 10*3/uL (1.3-4.4); LYMPH % 11.2 % (27.0-41.0); MEAN CELL VOLUME 95.9 fl (81.0-99.0); MEAN CORPUSCULAR HGB 28.7 pg (27.0-31.0); MEAN CORPUSCULAR HGB CONC 29.9 g/dl (33.0-37.0); MONO # 1.2 10*3/uL (0.1-1.0); MONO % 11.9 % (3.0-9.0); NEUT # 7.4 10*3/uL (2.3-7.9); NEUT % 73.9 % (47.0-73.0); PLATELET COUNT AUTOMATED 278 10*3/uL (130-400); RED BLOOD COUNT 3.14 10*6/uL (4.10-5.10)
--- NOTE | 2018-11-26 02:00 | NUR ---
IT WAS DISCUSSED WITH THE PATIENT ABOUT THE IMPORTANCE OF WOUND PHOTOS. THE PATIENT ELECTED TO NOT DO THE PHOTOS
[2018-11-26 02:14] LABS: ALBUMIN 1.4 gm/dl (3.1-4.5); CREATININE 1.73 mg/dL (0.55-1.02); POTASSIUM 4.6 mmol/L (3.5-5.1); TOTAL PROTEIN 7.1 gm/dL (6.4-8.2)
[2018-11-26 02:15] LABS: TROPONIN I 0.019 ng/ml (<0.045)
[2018-11-26 05:20] VITALS: BP 154/63
--- NOTE | 2018-11-26 05:20 | NUR ---
A 53, admitted to , under the services of Dr. JOSH GORDON,[facility] with a diagnosis of HYPOGLCEMIA. Chief complaint is PTS BLOOD SUGAR WAS IN LOW 50S EMS CALLED. Patient arrived via bed from ER. Monitor applied. Initial assessment completed. Vital signs taken and recorded. DR. JOSH GORDON,[facility] notified of admission to the unit. Orders received. See assessment for past medical history, medications and allergies . Patient and/or family oriented to unit. [facility]. visitation policy reviewed. Clothing/patient valuable form completed. JAN MCCANN
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
[2018-11-26] MEDS ORDERED: AMARYL2 MG PO (06:43)
--- NOTE | 2018-11-26 06:43 | NUR ---
Upon discharge recommend patient to follow up for wound care in outpatient setting continue current wound care orders at discharging facility.
[2018-11-26] MEDS ORDERED: AMOXICILLIN500 M3 PO (06:44)
[2018-11-26] MEDS ORDERED: COLACE100 MG PO (06:46)
[2018-11-26] MEDS ORDERED: FEROSUL325 M1 PO (06:47)
[2018-11-26] MEDS ORDERED: INVANZ1 GM/50 ML IV (06:50)
[2018-11-26] MEDS ORDERED: Synthroid,Levo50 MCG PO (06:53)
[2018-11-26] MEDS ORDERED: TRAD5TAB1 PO (06:58)
--- NOTE | 2018-11-26 07:02 | NUR ---
CALLED DR. MORENO AND NOTIFIED HIM OF PT. CONDITION AND ORDERS RECEIVED AND HE WILL BE IN THIS MORNING TO FINISH ORDERS.
--- NOTE | 2018-11-26 07:12 | NUR ---
BEDSIDE GLUCOSE CHECKED 25 AND RECHECKED 27 REFLUX ORDERED. PT. GIVEN SOME APPLE JUICE AND ALOS D10 250ML BOLUS BEING STARTED. PT. SLURRING WORDS, AND UNABLE TO TELL HER BIRTHDAY BUT KNOWS WHERE SHE WAS. VERY LETHARGIC.
--- NOTE | 2018-11-26 07:40 | NUR ---
RECHECKED PT. NOW ABLE TO TELL HER BIRTHDAY STILL SLURRING SPEACH SOME AND LETHARGIC.
[2018-11-26 08:00] VITALS: BP 158/82
--- NOTE | 2018-11-26 10:41 | NUR ---
PODIATRY AWARE OF NEW CONSULT.
--- NOTE | 2018-11-26 11:55 | NUR ---
Patient comes from [facility] short term. the SW from [facility] contacted the insurance company and they are stating the patient is not making any progress, therefore she can be discharged to home with IV ATB, they will not approve any more halfway days for her at this time. accounting systems manager rOa notified.
[2018-11-26 12:00] VITALS: BP 139/76
--- NOTE | 2018-11-26 13:00 | NUR ---
UPON HOURLY BSG, BLOOD GLUCOSE 39. PATIENT IS AWAKE AND ALERT AND ENCOURAGED TO DRINK ORANGE JUICE. NOTIFIED OF GLUCOSE DROP. ORDER OBTAINED FOR PRN D50 AND DOSE TO BE GIVEN NOW.
[2018-11-26 16:00] VITALS: BP 132/67
--- NOTE | 2018-11-26 19:23 | NUR ---
PATIENT RESTING IN BED WITH NO NEEDS MADE. BED IN LOWEST POSITION, CALL LIGHT IN REACH
[2018-11-26 20:00] VITALS: BP 147/72
--- NOTE | 2018-11-26 20:08 | NUR ---
blood sugar check 77. 250 bolus of dextrose given
--- NOTE | 2018-11-26 20:50 | NUR ---
DR MORENO AWARE OF PATIENTS BLOOD PRESSURE AND HEART RATE. STATES TO NOT GIVE COREG, CATAPRES OR APRESOLINE TONIGHT. ORDER TO CONSULT DR EATON FOR BRADYCARDIA.
--- NOTE | 2018-11-26 20:55 | NUR ---
DR EATON'S ANSWERING SERVICE AWARE OF CONSULT
--- NOTE | 2018-11-26 21:48 | NUR ---
NEWSCAST DIRECTOR IN TO SPEAK WITH PATIENT ABOUT LEAVING THE DOOR OPEN
--- NOTE | 2018-11-26 21:54 | NUR ---
24 HR chart check completed.
[2018-11-27] VITALS (10 sets, daily range): BP systolic 135–168; BP diastolic 53–78
--- NOTE | 2018-11-27 01:51 | NUR ---
PATIENT RESTING IN BED WATCHING TV. FLUIDS INFUSING PER ORDER. BED IN LOWEST POSITION, CALL LIGHT IN REACH
--- NOTE | 2018-11-27 05:17 | NUR ---
PATIENT DENIES ANY S/S OF HYPOGLYCEMIA AT THIS TIME.
[2018-11-27 05:57] LABS: CREATININE 1.58 mg/dL (0.55-1.02)
[2018-11-27 06:20] LABS: BASO # 0.1 10*3/uL (0.0-0.1); BASO % 0.7 % (0.0-1.0); EOS # 0.4 10*3/uL (0.0-0.4); EOS % 5.3 % (1.0-4.0); HEMATOCRIT 30.4 % (37.0-47.0); HEMOGLOBIN 9.2 g/dl (12.0-16.0); LYMPH # 1.1 10*3/uL (1.3-4.4); LYMPH % 14.7 % (27.0-41.0); MEAN CELL VOLUME 94.1 fl (81.0-99.0); MEAN CORPUSCULAR HGB 28.5 pg (27.0-31.0); MEAN CORPUSCULAR HGB CONC 30.3 g/dl (33.0-37.0); MEAN PLATELET VOLUME 9.1 fl (9.6-12.3); MONO # 0.9 10*3/uL (0.1-1.0); MONO % 11.5 % (3.0-9.0); NEUT # 5.1 10*3/uL (2.3-7.9); NEUT % 67.5 % (47.0-73.0); PLATELET COUNT AUTOMATED 313 10*3/uL (130-400); RED BLOOD COUNT 3.23 10*6/uL (4.10-5.10); RED CELL DISTRI WIDTH 14.8 % (0-14.5); WHITE BLOOD COUNT 7.5 10*3/uL (4.8-10.8)
--- NOTE | 2018-11-27 08:18 | NUR ---
In to see patient to discuss discharge plans. Explained to her that her insurance stated they will not pay for any more [facility] days. She stated "I don't care, I'm not going back there anyway, I'm going home." I asked if we could try a different facility and she said no, she is going home. She stated shes had [facility] in the past with aides, nursing and physical therapy and would like to have them again upon discharge. Notified family service caseworker.
--- NOTE | 2018-11-27 09:00 | NUR ---
Legal Secretary in to talk to patient. Patient states lives at home with her and grandson. Her son just moved out and lives next door There are 3 steps in the home and basement steps. Physician: Dr. Ric Ray Pharmacy: [facility] Home health services: none Patient's level of ADLs: minimal assistance Patient has working utilities: yes DME: none Follow-up physician's appointment after d/c: she prefers to make her own follow up appt after discharge Does patient want to access PORTAL?: no Discharge plan discussed with patient. She was at [facility] but doesn't want to go back there or any other facility. She wants to return home with her . She is independent in her ADLs and ambulates with a walker. Discussed home health care services and she would like [facility] RN/PT/aides on discharge. When medically stable she will be discharged to home with [facility] services. Her will transport on discharge. MEKHI QUIROGA
--- NOTE | 2018-11-27 13:29 | NUR ---
PATIENT IN SURGERY.
--- NOTE | 2018-11-27 16:50 | NUR ---
PATIENT BACK FROM SURGERY. BS 113. C/O PAIN [address] MCNEIL ANSWERING SERVICE AWARE OF CONSULT.
--- NOTE | 2018-11-27 17:11 | NUR ---
CALLED DR. MORENO FOR PAIN MEDICATION.
--- NOTE | 2018-11-27 17:23 | NUR ---
MEDICATED WITH 1/2 MG DILAUDID PATIENT REFUSED 1MG STATED IT WOULD BE TOO MUCH FOR HER.
--- NOTE | 2018-11-27 19:21 | NUR ---
SPOKE WITH DR MORENO REGARDING PATIENT. STATES TO CONTINUE DIET, CHANGE BLOOD SUGARS TO Q2H, AND DECREASE DILAUDID FROM 1MG TO 0.5MG.
[2018-11-28] VITALS (7 sets, daily range): BP systolic 108–141; BP diastolic 53–64
--- NOTE | 2018-11-28 01:48 | NUR ---
24 HR chart check completed.
--- NOTE | 2018-11-28 01:59 | NUR ---
PATIENT MEDICATED WITH PRN DILAUDID FOR C/O SEVERE PAIN IN RIGHT FOOT AND LEG RATED 10/10 ON A 0/10 PAIN SCALE. PATIENT HAS POSITIVE CAPILLARY REFILL IN TOES ON RIGHT FOOT. PATIENT IS ABLE TO MOVE TOES AND STATES SHE CAN FEEL WHEN THIS RN TOUCHES HER TOES. PATIENT STATES SHE FEELS A LOT OF PRESSURE IN HER RIGHT KNEE. LEG WRAP IS TIGHT AROUND LEG. THIS IS NOT A CHANGE FROM BEGINNING OF SHIFT. WILL CONTINUE TO MONITOR. PATIENT ENCOURAGED TO NOT LET PAIN GET SEVERE, AND TO ASK FOR PAIN MEDICATION WHEN SHE NEEDS IT. PATIENT VERBALIZED UNDERSTANDING. CALL LIGHT IN REACH
--- NOTE | 2018-11-28 02:15 | NUR ---
MOVIE MACHINE OPERATOR BATOOL NUÑEZ TO ASSESS PATIENT'S RIGHT LEG WRAP AT THIS TIME.
--- NOTE | 2018-11-28 02:24 | NUR ---
ATTEMPTED TO CALL THE VARIOUS EXCEPTIONALITIES TEACHER PODIATRY RESIDENT REGARDING PATIENT'S WRAP CUTTING IN TO HER SKIN AROUND HER KNEE ON THE RIGHT SIDE. NO ANSWER.
--- NOTE | 2018-11-28 04:18 | NUR ---
PATIENT STATES PREVIOUS PAIN MEDICATION WAS EFFECTIVE
--- NOTE | 2018-11-28 07:43 | NUR ---
DR. HANSON NOTIFIED OF PT'S COMPLAINT OF PAIN DUE TO CAST ON RT LEG. PT IS VERY EDEMATOUS AND HAS 4-5+ PITTING EDEMA ON THE EFFECTED LEG. SHE DOES HAVE FEELING IN HER TOES, SHE CAN MOVE THEM AND HAS AN APPROPRIATE CAPILLARY REFILL. HE STATES THAT IT IS SUPPOSED TO BE TIGHT, HE IS NOT CONCERNED. HE STATES ONE OF HIS CO-RESIDENTS WILL BE IN TO SEE HER LATER TODAY. WILL CONTINUE TO MONITOR PT.
--- NOTE | 2018-11-28 09:18 | NUR ---
pt requested and recieved prn order for dilaudid for c/o pain to right leg that she rates 8/10. Will monitor for effectiveness of medication.
--- NOTE | 2018-11-28 10:30 | NUR ---
DILAUDID EFFECTIVE PER PT
--- NOTE | 2018-11-28 14:15 | NUR ---
DR. RUIZ NOTIFIED PT HAS ONLY HAD 50cc OF URINE OUTPUT TODAY. ORDERS FOR ONE TIME DOSE OF IV BUMEX FOLLOWED BY 40mg IV LASIX RECIEVED. WILL CONTINUE TO MONITOR PT.
--- NOTE | 2018-11-28 16:30 | NUR ---
PT RESTING IN BED. DENIES ANY NEEDS AT THIS TIME. RESPIRATIONS EASY AND NONLABORED ON 1L NC. NO DISTRESS NOTED. SAFETY MEASURES INTACT. CALL LIGHT WITHIN REACH. WILL CONTINUE TO MONITOR.
--- NOTE | 2018-11-28 17:05 | NUR ---
DR. HANSON NOTIFIED THERE IS NO WOUND VAC ORDERS. ORDERS RECIEVED
[2018-11-29] VITALS: BP 111/59
[2018-11-29 06:09] LABS: CREATININE 1.59 mg/dL (0.55-1.02); POTASSIUM 4.6 mmol/L (3.5-5.1)
[2018-11-29 08:00] VITALS: BP 130/70
--- NOTE | 2018-11-29 08:28 | NUR ---
PHYSICAL THERAPY PT ABDIFATAH COMPLETED 11/29/18: FULL EVALUATION TO FOLLOW. RECOMMEND PT WHILE HERE TO ADDRESS DECREASED STRENGTH, ENDURANCE,BALANCE AND THUS DECREASED FUNCTIONAL MOBILTIY. PT ABDIFATAH IS MDOERATE COMPLEXITY BASED ON EVAL, TEST RESULTS AND CHART REVIEW: [id number]. D/C REC: AT THIS TIME SHE CAME FROM SNF BUT IS STATING SHE CANNOT RETURN THERE AND WANTS TO GO HOME. FEEL SHE WOULD BENEFIT FROM ADDITIONAL SNF BASED ON EVAL BUT IF DOES NOT MEET CRITERIA WOULD RECOMMEND FOR[facility]LY [facility] PT AND FAMILY SUPPORT AT HOME. THANK YOU FOR REFERRAL SAUNDRA MANRIQUE PT
[2018-11-29 12:00] VITALS: BP 143/56
--- NOTE | 2018-11-29 14:17 | NUR ---
PT WITH [address] RUIZ NOTIFIED
[2018-11-29 16:00] VITALS: BP 126/58
--- NOTE | 2018-11-29 16:03 | NUR ---
IV DILAUDID GIVEN FOR C/O RIGHT LEG PAIN OF 10/10. WILL CONT TO MONITOR. CALL LIGHT IN REACH.
--- NOTE | 2018-11-29 17:03 | NUR ---
IV DILAUDID EFF. PT RESTING WITH EYES CLOSED.
--- NOTE | 2018-11-29 19:48 | NUR ---
24 HR CHART CHECK COMPLETE.
[2018-11-29 20:00] VITALS: BP 149/60
[2018-11-30] VITALS: BP 130/56
--- NOTE | 2018-11-30 06:22 | NUR ---
PRN DILAUDID ADMINISTERED PRESCRIBED FOR RT LEG PAIN RATED A 9/10 ON THE PAIN SCALE. WILL CONTINUE TO MONITOR AND REASSESS. NO OTHER COMPLAINTS AT THIS TIME. CALL LIGHT IN REACH.
[2018-11-30 08:00] VITALS: BP 132/62
--- NOTE | 2018-11-30 08:15 | NUR ---
This nurse was asked to evaluate patient right lower extremity. Patient complaining of discomfort at time of assessment. Dressing soiled at time of assessment with mild odor noted. External fixation device intact along with wound vac at 200mmHg continous with intersity low patient has about 5occ in canister at time of assessment. Will notify podiatry since podiatry is managing dressing changes.
--- NOTE | 2018-11-30 09:27 | NUR ---
Spoke with Dr. Martinez regarding right lower extremity dressing since patient is complaining of discomfort. He stated he will look at it when he rounds today this nurse asked him to notify Jacy nurse caring for patient once he sees her.
--- NOTE | 2018-11-30 09:50 | NUR ---
Occupational Therapy evaluation completed on 4 with full eval to follow. After chart reviewed OTR noted that 11/27/18 patient was to be BLE NWB, howevere on 11/29/18 she is documented to be NWB RLE. OTR discussed with nursing who clarified with podiatry with patient to be NWB BLE until physician progresses LLE. OTR informed PT about NWB BLE. Precautions include NWB BLE,obese, external fixator RLE with wound vac and NWB LLE d/t wounds, obesity,high complexity level 02126 via chart review, testing and evaluation. Recommend OT per POC and SNF v.s LTACH to enable eventual return home with family. Thank you. Alexia Ralph OTR/l
--- NOTE | 2018-11-30 10:05 | NUR ---
PHYSICAL THERAPY Patient seen this am 1:1 for therapy visit and was supine in bed upon therapist arrival. Patient presented with continuos O2-2L via NC and wound vac R LE. Patient is now NWB on B LE per physician clarification this am and transfers supine to sit EOB with Mod A x 2. Patient tolerated static EOB sit x 5 minutes, CGA, and demonstrated increased fatigue with POOR core strength. Patient returned to supine in bed MAX A and remained in bed with call light, tray table, and telephone. Will continue per POC as tolerated, total treatment time 13 minutes. Nick Spencer, MARKETING PRODUCTION COORDINATOR
[2018-11-30 10:09] LABS: ACID FAST SPEC PROCESSING Tissue Grinding (.)
[2018-11-30 10:09] LABS: ACID FAST SPEC PROCESSING Tissue Grinding (.)
--- NOTE | 2018-11-30 10:19 | NUR ---
Spoke with Dr. Iglesias regarding edema since Dr. Martinez to me to pass this along to the medical provider. He stated he will see that patient later today.
--- NOTE | 2018-11-30 10:43 | NUR ---
Discussed with patient her inability to return to [facility] for therapy. Discussed other options including LTAC and SNFs. Patient would like to try another short term SNF before agreeing to an LTAC. When provided with a list of facilities she chose [facility]. information systems planner notified.
--- NOTE | 2018-11-30 10:57 | NUR ---
[facility] stating they are unwilling to accept this patient back due to her non compliance. CM in to talk with patient, stated to make referral to [facility]> Contacted [facility] and faxed referral. Waiting on review/acceptance.
--- NOTE | 2018-11-30 10:57 | NUR ---
PER DR HANSON PATIENT MAY TRANSFER WITH NON-OPERATIVE LOWER EXTREMITY ONLY. WILL NOTIFY THERAPY.
--- NOTE | 2018-11-30 11:35 | NUR ---
PHYSICAL THERAPY Physician clarification this morning, NWB status bilaterally, per nursing. PT and SENIOR STACK ENGINEER aware of this clarification. Thank you. Ora Hurley,PT,DPT.
[2018-11-30 12:00] VITALS: BP 151/59
--- NOTE | 2018-11-30 14:00 | NUR ---
OT NOTE Pt was seen this P.M. 1:1 for 15 minute OT session. Upon arrival pt was supine in bed. Pt identified by name and and had complaints of 7/10 R foot pain. Pt completed BUE towel exercises over all planes of motion for 1 X 10 with emphasis on triceps for increased I in self care tasks and functional transfers. Pt was then requesting to rest at this time due to increased fatigue from previous therapy session this A.M. with physical therapy. Pt was left supine in bed with call light in hand, tray table in place, and bed alarm activated fro safety. Continue with rec D/ cplan to LTACH versus SNF. RONAK Huber/Sami
--- NOTE | 2018-11-30 15:19 | NUR ---
[facility] stating they are unable to accept this patient, she is too complex, IV meds are a high cost, being from [place] patient may not pay for very long and then patient would be a private pay/difficult discharge. Notified wrapper caser, Ora kam
[2018-11-30 16:00] VITALS: BP 159/73
--- NOTE | 2018-11-30 19:17 | NUR ---
PATIENT ASLEEP SITTING UP IN BED, EASILY AROUSABLE. PT DENIES ANY NEEDS AT THIS TIME. WILL MONITOR. CALL LIGHT LEFT IN REACH.
[2018-11-30 20:00] VITALS: BP 162/67
--- NOTE | 2018-11-30 22:40 | NUR ---
PATIENT REPORTED 9/10 PAIN TO RLE. PATIENT MEDICATED WITH PRN DILAUDID PER ORDER. PATIENT REPOSITIONED FOR COMFORT. CALL LIGHT WITHIN REACH.
--- NOTE | 2018-11-30 23:03 | NUR ---
PT ASLEEP IN BED. RESPIRATIONS EASY. NO S/S OF DISTRESS NOTED. EARLIER MEDICATIONS APPEAR EFFECTIVE. IVF INFUSING AT 125 ML/HR PER ORDER. WILL MONITOR. CALL LIGHT IN REACH.
--- NOTE | 2018-11-30 23:36 | NUR ---
PATIENT SLEEPING IN BED. PAIN MEDICINE EFFECTIVE. CALL LIGHT WITHIN REACH.
[2018-12-01] VITALS: BP 153/72
--- NOTE | 2018-12-01 03:03 | NUR ---
PATIENT SLEEPING IN BED. CALL LIGHT WITHIN REACH.
--- NOTE | 2018-12-01 07:29 | NUR ---
Patient unable to go to snf as they are stating patient is too complicated. Patient agreeable to [facility] who is in network with her insurance. Contacted facility and faxed referral. Requires precert.
[2018-12-01 08:00] VITALS: BP 166/58
--- NOTE | 2018-12-01 08:28 | NUR ---
Per Dr Martinez 11/30/18 pm, patient "may transfer with non-operative lower extremity only". OT will add to current POC transfer training bed, BSC, chair with goal of : Improved functional transfers in ADLs from dependent to mod assist for stand pivot transfers to bed, BSC and chair. Alexia Ralph OTR/l
--- NOTE | 2018-12-01 08:31 | NUR ---
PHYSICAL THERAPY Patient gives informed consent for treatment. Patient was supine in bed with head of bed elevated upon this AUTOMATED CUTTING MACHINE OPERATOR arriving in room. Patient was identified by name and on wrist band. Patient has 6/10 pain level in the R ankle. Patient has wound vac and is on 2 liters of spO2 via nasal canula. Patient transferred supine to sitting at EOB with MAX A X 2. Patient is now able to transfer on her L LE. Patient is still NWB on the R LE. Patient sat on EOB unassisted. Patient performed LAQs in sitting 2 x 10 reps on L LE and 10 REPS on R LE. Patient attempted sit to stand transfer to Walker and was UNABLE to perform this transfer to standing with MAX A X 2. She is total dependent to transfer to bedside chair and may even need a ABIEL LIFT. Patient transferred back to supine in bed with MAX A X 2. Patient was left in supine with call light within reach, bed alarm activated, and head of bed elevated. Tray table left near patient. Patient was 1:1 with this AUTOMATED CUTTING MACHINE OPERATOR for 18 minutes total. ANNIE NGUYEN AUTOMATED CUTTING MACHINE OPERATOR
--- NOTE | 2018-12-01 08:32 | NUR ---
OT NOTE *Per discussion with OTR, after chart review and doctors orders pt is now able to transfer on LLE and still to remain NWB to RLE. Will continue with POC as indicated. Pt was seen this A.M. 1:1 for 24 minute OT session. Upon arrival pt was supine in bed. Pt identified by name and and had complaints of 6/10 RLE foot pain. Pt presented to therapy with continuous 2L-O2 via NC which she remained on throughout entire session. Pt's SpO2 at rest was 93% and heart rate 60 bpm. Pt transferred supine to sit EOB with maxA X 2. While sitting EOB pt completed BUE towel exercises over all planes of motion for 1 X 10 with emphasis on triceps for increased I in self care tasks and functional transfers. Attempted to complete sit to stand transfer from bed level with maxA x 2 and pt was unable to clear the bed due to pt reports of "increased weakness and pain." Pt tolerated sitting upright on the EOB for aprox 15 minutes before requesting to lay back down. Pt then transferred back into bed sit to supine with maxA x 2 and was repositioned with maxA x 2. There she was left with call light in hand, tray table in place, and bed alarm activated for safety. Continue with rec D/c plan to LTACH versus SNF. RONAK Huber/Sami
--- NOTE | 2018-12-01 08:34 | NUR ---
PHYSICAL THERAPY Per nursing and Dr. Martinez's orders, patient is able to transfer with non-operative LE. PT and BRICKLAYER aware. Thank you. Ora Hurley,PT,DPT.
--- NOTE | 2018-12-01 09:52 | NUR ---
PT MEDICATED WITH IV DILAUDID PER PRN ORDER FOR C/O RLE PAIN. RATES PAIN 12/05. WILL MONITOR EFFECTIVENESS.
--- NOTE | 2018-12-01 10:00 | NUR ---
Manager Athletics in to see patient. Discussed [facility] in [place]. Discussed her condition at this time is higher than a nursing facility is able to handle. She remains agreeable to [facility]. Asked is she would like CM to call her and inform him and she stated no he is at work and will be in later today. When asked a time, patient is unsure of what time her would be getting off work. When medically stable and auth is obtained she will be discharged to [facility]. facility planner following.
--- NOTE | 2018-12-01 10:30 | NUR ---
PAIN MEDICINE EFFECTIVE PER PT. WILL CONTINUE TO MONITOR.
[2018-12-01 12:00] VITALS: BP 155/58
--- NOTE | 2018-12-01 12:20 | NUR ---
[facility] accepting patient, started precert, waiting on auth
[2018-12-01 16:00] VITALS: BP 158/66
--- NOTE | 2018-12-01 16:47 | NUR ---
PT GIVEN IV DILAUDID PER PRN ORDER FOR C/O RLE PAIN. RATES PAIN 12/05. WILL MONITOR EFFECTIVENESS.
--- NOTE | 2018-12-01 17:20 | NUR ---
PAIN MEDICINE EFFECTIVE PER PT. WILL CONTINUE TO MONITOR.
--- NOTE | 2018-12-01 19:30 | NUR ---
PATIENT C/O NAUSEA W/ SMALL AMOUNT OF EMESIS. ATTMEPTED TO CALL FOR ANTIEMETIC MEDICATION. NO ANSWER. WILL ATTEMPT AT LATER POINT. BSG 197 AT THIS TIME.
--- NOTE | 2018-12-01 19:32 | NUR ---
CALLED BACK. NEW ORDER RECEIVED FOR IV ZOFRAN 8 MG Q6H PRN FOR N/V.
--- NOTE | 2018-12-01 19:45 | NUR ---
IV ZOFRAN ADMINISTERED PER PRN ORDER FOR C/O NAUSEA W/ EMESIS. BP ELEVATED AT THIS TIME PER AUTO BP CUFF. PATIENT REQUESTING TIME TO "CALM DOWN" BEFORE RECHECKING MANUALLY. RN ALSO EXPLAINED THAT 2200 MEDS MAY BE GIVEN EARLY ONCE PT NO LONGER FEELS NAUSEOUS. PT AGREES TO THIS. WILL MONITOR. CALL LIGHT IN REACH. BED ALARM INTACT.
[2018-12-01 21:00] VITALS: BP 153/61
--- NOTE | 2018-12-01 23:50 | NUR ---
Pt intubated by Dr. Thomas with 8.0 ETT, 24cm at the teeth. Colormetric CO2 changed noted as well as condensation in tube, and bilateral breath sounds auscultated. Tube secured via tube tamer and tape.
[2018-12-02] VITALS (9 sets, daily range): BP systolic 171–192; BP diastolic 72–88
--- NOTE | 2018-12-02 00:14 | NUR ---
DR. Jones performed ABG without complication via right radial site. Sample sent to lab.
--- NOTE | 2018-12-02 00:15 | NUR ---
CALLED. AWARE THAT PATIENT HAD LOST A PULSE TWICE & STOPPED BREATHING & CHASITY LEMUS CALLED. PT PULSE RETURNED AND SHE IS NOW INTUBATED & IN ICU. NEW ORDERS RECEIVED FOR TROPONINS Q3H X3, LOVENOX SQ 40 MG BID, DUONEBS Q4H, STAT ABGs & CALL WITH RESULTS. ORDERS PUT IN AND RON FORREST UPDATED.
--- NOTE | 2018-12-02 00:20 | NUR ---
2335MONITOR TECH CALLED RN. STATES PT HR HAS DIPPED INTO THE 30s. RN IN TO SEE PATIENT. NASAL CANNULA OUT OF NOSE AND PATIENT FOUND UNRESPONSIVE & STRUGGLING TO BREATHE. PULSE/RESPIRATIONS PRESENT. RAPID RESPONSE CALLED. 2337PULSE LOST & PT STOPPED BREATHING. CODE BLUE CALLED. COMPRESSIONS/BAGGING STARTED. 2338HR RETURNED 40S PER CM. 0.5 MG ATROPINE ADMINISTERED AT 2340 & ANOTHER 0.5 MG ATROPINE ADMINISTERED 2341. 2343 CALLED AT THIS TIME. INSTRUCTED TO CALL (CARDIO) CALLED. DURING PHONE CALL, PULSE WAS LOST AGAIN. AWARE OF LOSS OF PULSE AND COMPRESSIONS RESTARTED. RN TO CALL BACK TO UPDATE WHEN PT IS STABLE. 57622 MG EPI ADMINISTERED. 69497 MG EPI ADMINISTERED. 2349HR NOW 120S PER CM. PULSE RETURNED. 2350PT INTUBATED W/ SIZE 8 ET TUBE. 24 INCHES AT THE LIP. 2357TRANSFERRED TO ICU ROOM 5. NURSE TO NURSE REPORT GIVEN TO RON FORREST.
[2018-12-02 00:21] LABS: ABG BASE EXCESS -2.8 mmol/L (-2.0-2.0); ABG O2 SATURATION 99.9 % (95-97); ARTERIAL BLOOD GAS PCO2 56.1 mmHg (35-45); ARTERIAL BLOOD GAS PH 7.254 (7.35-7.45)
[2018-12-02 00:28] LABS: HEMATOCRIT 28.5 % (37.0-47.0); HEMOGLOBIN 8.6 g/dl (12.0-16.0); MEAN CELL VOLUME 96.9 fl (81.0-99.0); MEAN CORPUSCULAR HGB 29.3 pg (27.0-31.0); MEAN CORPUSCULAR HGB CONC 30.2 g/dl (33.0-37.0); MEAN PLATELET VOLUME 8.7 fl (9.6-12.3); NUCLEATED RED BLOOD CELL 0.2 % (0.0-0.0); PLATELET COUNT AUTOMATED 318 10*3/uL (130-400); RED BLOOD COUNT 2.94 10*6/uL (4.10-5.10); RED CELL DISTRI WIDTH 14.3 % (0-14.5); WHITE BLOOD COUNT 12.6 10*3/uL (4.8-10.8)
--- NOTE | 2018-12-02 00:34 | NUR ---
RECEIVED PATIENT FROM THE FLOOR, REPORT RECEIVED FROM BEREKET VELASQUEZ. PATIENT NOW INTUBATED AND ON VENT. DR. RUIZ AWARE. BLOOD GASES ORDERED. ORDERS RECEIVED FROM HOSPITALIST AND DR. LIVINGSTON.
[2018-12-02 00:38] LABS: ACT PARTIAL THROMBO TIME 31.3 SECONDS (20.0-32.1); INTERNATIONAL NORM RATIO 1.2 (2.0-3.5)
[2018-12-02 00:44] LABS: ALBUMIN 1.5 gm/dl (3.1-4.5); CREATININE 1.89 mg/dL (0.55-1.02); POTASSIUM 5.3 mmol/L (3.5-5.1); TOTAL PROTEIN 7.1 gm/dL (6.4-8.2)
[2018-12-02 01:14] LABS: TOTAL CELLS COUNTED 100 #CELLS
[2018-12-02 01:15] LABS: PLATELET SUFFICIENCY NORMAL (NORMAL)
--- NOTE | 2018-12-02 01:15 | NUR ---
CARDIOLOGY ANSWERING SERVICE CALLED FOR PT UPDATE POST CARDIAC ARREST. CALLBACK NUMBER PROVIDED.
--- NOTE | 2018-12-02 01:25 | NUR ---
SPOKE WITH DR. PHILLIPS. PT CONDITION, LAB RESULTS, AND SUMMARY OF CODE BLUE PROVIDED. NO FURTHER ORDERS GIVEN AT THIS TIME.
[2018-12-02 01:58] LABS: ABG BASE EXCESS 2.1 mmol/L (-2.0-2.0); ABG HCO3 27.3 mmol/l (22-26); ABG O2 SATURATION 95.2 % (95-97); ARTERIAL BLOOD GAS PCO2 50.2 mmHg (35-45); ARTERIAL BLOOD GAS PH 7.356 (7.35-7.45); ARTERIAL BLOOD GAS PO2 70.6 mmHg (80-90)
--- NOTE | 2018-12-02 02:10 | NUR ---
DR. RUIZ UPDATED ON PATIENT CONDITION AND BLOOD GAS RESULTS 2 HOUR POST INTUBATION. ORDERS RECEIVED.
--- NOTE | 2018-12-02 02:35 | NUR ---
DIPRIVAN GTT INITIATED AT 10 MCG.
--- NOTE | 2018-12-02 04:27 | NUR ---
Changed patient tube tamer to an [place] Fast. Secured ETT at 24cm at the teeth, and also secured OG at it's same position.
[2018-12-02 07:14] LABS: ABG BASE EXCESS 2.5 mmol/L (-2.0-2.0); ABG HCO3 27.4 mmol/l (22-26); ABG O2 SATURATION 99.3 % (95-97); ARTERIAL BLOOD GAS PCO2 44.6 mmHg (35-45); ARTERIAL BLOOD GAS PH 7.397 (7.35-7.45)
--- NOTE | 2018-12-02 09:00 | NUR ---
ET TUBE WAS ADJUSTED TO 22 AT THE LIP AFTER XRAY RESULTS, POST XRAY AFTER TUBE ADJUSTMENT, NOW AT AROTIC KNOB. RN AT BEDSIDE TO ASSIST. PT. TOLERATE WELL.
--- NOTE | 2018-12-02 09:00 | NUR ---
[employer] in to see patient. She is intubated and sedated. Discharge plan undecided at this time.
--- NOTE | 2018-12-02 11:01 | NUR ---
updated information faxed to [facility] regarding change in patients condition. They are working on precert.
--- NOTE | 2018-12-02 14:30 | NUR ---
CALLED REGARDING FAMILY REQUESTING PATIENT TO BE TRANSFERRED TO A "LARGER HOSPITAL". TO START PROCESS TO TRANSFER TO [facility]. FAMILY INFORMED.
--- NOTE | 2018-12-02 15:10 | NUR ---
Spoke to Trina Villa, [facility] lead case manager, regarding patient's condition. Her phone number is [phone]. She will call back in to check on patient every other day and if anything is needed for discharge planning she is here to help.
--- NOTE | 2018-12-02 15:20 | NUR ---
Spoke to Annamarie at [facility] one call regarding transferring patient to [facility]. Pre-auth is required. Accepting physician is Carlito Akhtar. Will call [facility].
--- NOTE | 2018-12-02 15:25 | NUR ---
Spoke to primary caser shoe parts, Trina, at [facility] regarding transfer to [facility] [place]. Information given. Awaiting return call.
[2018-12-02 15:46] LABS: ABG BASE EXCESS -0.2 mmol/L (-2.0-2.0); ABG HCO3 24.7 mmol/l (22-26); ABG O2 SATURATION 99.2 % (95-97); ARTERIAL BLOOD GAS PCO2 43.2 mmHg (35-45); ARTERIAL BLOOD GAS PH 7.371 (7.35-7.45)
[2018-12-02 16:22] LABS: ALBUMIN 1.5 gm/dl (3.1-4.5); CREATININE 1.86 mg/dL (0.55-1.02); POTASSIUM 4.7 mmol/L (3.5-5.1); TOTAL PROTEIN 6.5 gm/dL (6.4-8.2)
--- NOTE | 2018-12-02 16:28 | NUR ---
RECEIVED CALL FROM SAMANTHA LOVING, AUTH NUMBER FOR TRANSFER [id number]. CALLED ONE CALL AT [facility] AND PROVIDED THEM WITH AUTH NUMBER. THEY WILL CALL [facility] WHEN THEY HAVE A BED AVAILABLE. Shona MARIN RN IN ICU GIVEN AUTH NUMBER ALSO.
--- NOTE | 2018-12-02 18:36 | NUR ---
REPORT GIVEN TO BARRY AT [facility].
--- NOTE | 2018-12-02 20:33 | NUR ---
PATIENT LEFT FLOOR VIA AMBULANCE FOR TRANSFER TO [facility].
== END 2018-12-02 20:33 | disposition short-term general hospital (02) | DRG 628 ==
LOC: ED 01:16 → EDHOLD 02:58 → 4E 02:58 → ICCU 12-01 23:51
PROVIDERS: Family Medicine; Internal Medicine; Podiatrist; Student in an Organized Health Care Education/Training Program; ADMIT Internal Medicine
PROC: 0QBL0ZX Excision of Right Tarsal, Open Approach, Diagnostic (ICD-10-PCS; principal; 2018-11-27)
PROC: 0HRMXK3 Replacement of Right Foot Skin with Nonautologous Tissue Substitute, Full Thickness, External Approach (ICD-10-PCS; principal; 2018-11-27)
PROC: 0L8N0ZZ Division of Right Lower Leg Tendon, Open Approach (ICD-10-PCS; principal; 2018-11-27)
PROC: 0SSFXZZ Reposition Right Ankle Joint, External Approach (ICD-10-PCS; principal; 2018-11-27)
PROC: 0QSL34Z Reposition Right Tarsal with Internal Fixation Device, Percutaneous Approach (ICD-10-PCS; principal; 2018-11-27)
PROC: 0SHF08Z Insertion of Spacer into Right Ankle Joint, Open Approach (ICD-10-PCS; principal; 2018-11-27)
PROC: 5A12012 Performance of Cardiac Output, Single, Manual (ICD-10-PCS; 2018-12-01)
PROC: 5A1935Z Respiratory Ventilation, Less than 24 Consecutive Hours (ICD-10-PCS; 2018-12-02)
PROC: 0BH17EZ Insertion of Endotracheal Airway into Trachea, Via Natural or Artificial Opening (ICD-10-PCS; 2018-12-02)
DX: E11.649 Type 2 diabetes mellitus with hypoglycemia without coma (principal); E43 Unspecified severe protein-calorie malnutrition; J96.00 Acute respiratory failure, unspecified whether with hypoxia or hypercapnia; I50.43 Acute on chronic combined systolic (congestive) and diastolic (congestive) heart failure; I46.9 Cardiac arrest, cause unspecified; M86.171 Other acute osteomyelitis, right ankle and foot; I13.0 Hypertensive heart and chronic kidney disease with heart failure and stage 1 through stage 4 chronic kidney disease, or unspecified chronic kidney disease; E87.1 Hypo-osmolality and hyponatremia; M86.8X7 Other osteomyelitis, ankle and foot; Z68.43 Body mass index [BMI] 50.0-59.9, adult; E11.69 Type 2 diabetes mellitus with other specified complication; S92.001A Unspecified fracture of right calcaneus, initial encounter for closed fracture; E11.621 Type 2 diabetes mellitus with foot ulcer; D50.9 Iron deficiency anemia, unspecified; N18.3 Chronic kidney disease, stage 3 (moderate); J45.909 Unspecified asthma, uncomplicated; E11.319 Type 2 diabetes mellitus with unspecified diabetic retinopathy without macular edema; K21.9 Gastro-esophageal reflux disease without esophagitis; E03.9 Hypothyroidism, unspecified; K58.9 Irritable bowel syndrome, unspecified; I27.20 Pulmonary hypertension, unspecified; I45.81 Long QT syndrome; E66.01 Morbid (severe) obesity due to excess calories; K59.09 Other constipation; I25.10 Atherosclerotic heart disease of native coronary artery without angina pectoris; R62.7 Adult failure to thrive; I87.2 Venous insufficiency (chronic) (peripheral); B96.20 Unspecified Escherichia coli [E. coli] as the cause of diseases classified elsewhere; Z16.12 Extended spectrum beta lactamase (ESBL) resistance; B96.89 Other specified bacterial agents as the cause of diseases classified elsewhere; R00.1 Bradycardia, unspecified; B96.4 Proteus (mirabilis) (morganii) as the cause of diseases classified elsewhere; L97.519 Non-pressure chronic ulcer of other part of right foot with unspecified severity; N05.9 Unspecified nephritic syndrome with unspecified morphologic changes; E11.22 Type 2 diabetes mellitus with diabetic chronic kidney disease; R00.0 Tachycardia, unspecified; I08.1 Rheumatic disorders of both mitral and tricuspid valves; Z88.8 Allergy status to other drugs, medicaments and biological substances; Z79.899 Other long term (current) drug therapy; Z98.49 Cataract extraction status, unspecified eye; Z85.41 Personal history of malignant neoplasm of cervix uteri; Z90.710 Acquired absence of both cervix and uterus; Z98.51 Tubal ligation status; Z82.49 Family history of ischemic heart disease and other diseases of the circulatory system; Z83.3 Family history of diabetes mellitus; Z84.89 Family history of other specified conditions

== ENCOUNTER → 2019-02-17 | Day surgery (SDC) | payer BC ==
[~2019-02-17] VITALS: Ht 170.1 cm; Wt 94.3 kg
[2019-02-17] VITALS (13 sets, daily range): BP systolic 160–184; BP diastolic 71–81
[~2019-02-17] MED LIST changes: +AMARYL2 MG PO; +AMLODIPINE BESY10 MG PO; +AMOXICILLIN500 M3 PO; +COLACE100 MG PO; +CONSTULOSE10 GM/151 PO; +DOXYCYCLINE100 M3 PO; +FEROSUL325 M1 PO; +INVANZ1 GM/50 ML IV; +LOSARTAN POTAS100 M1 PO; +OXYCODON-ACETA1 EACH PO; +PROTONIX40 MG PO; +Synthroid,Levo50 MCG PO; +TRAD5TAB1 PO; +ULTRAM50 MG PO; +VELTASSA8.4 GM PO; +XARELTO10 MG PO
[2019-02-18 15:09] LABS: ACID FAST SPEC PROCESSING Tissue Grinding (.)
[2019-02-18 15:09] LABS: ACID FAST SPEC PROCESSING Tissue Grinding (.)
[2019-03-31 15:10] LABS: ACID FAST CULTURE Negative (.)
[2019-03-31 15:10] LABS: ACID FAST CULTURE Negative (.)
== END | disposition home or self-care (01) ==
LOC: SDC 02-16 12:30
PROVIDERS: Podiatrist
DX: M86.171 Other acute osteomyelitis, right ankle and foot (principal); I11.0 Hypertensive heart disease with heart failure; I50.9 Heart failure, unspecified; L90.5 Scar conditions and fibrosis of skin; L97.412 Non-pressure chronic ulcer of right heel and midfoot with fat layer exposed; E03.9 Hypothyroidism, unspecified; E11.9 Type 2 diabetes mellitus without complications; J45.909 Unspecified asthma, uncomplicated; K21.9 Gastro-esophageal reflux disease without esophagitis; Z98.890 Other specified postprocedural states; Z79.899 Other long term (current) drug therapy; Z83.3 Family history of diabetes mellitus; Z82.49 Family history of ischemic heart disease and other diseases of the circulatory system; Z98.51 Tubal ligation status; Z90.710 Acquired absence of both cervix and uterus; Z86.14 Personal history of Methicillin resistant Staphylococcus aureus infection; Z80.9 Family history of malignant neoplasm, unspecified

== ENCOUNTER → 2019-03-17 | Day surgery (SDC) | payer BC ==
[~2019-03-17] VITALS: Ht 160 cm; Wt 93.6 kg
[2019-03-17 07:45] VITALS: BP 135/70
[2019-03-17 08:14] LABS: BASO # 0.1 10*3/uL (0.0-0.1); BASO % 1.2 % (0.0-1.0); EOS # 0.3 10*3/uL (0.0-0.4); EOS % 7.2 % (1.0-4.0); HEMATOCRIT 28.1 % (37.0-47.0); HEMOGLOBIN 8.6 g/dl (12.0-16.0); LYMPH # 0.9 10*3/uL (1.3-4.4); LYMPH % 20.3 % (27.0-41.0); MEAN CELL VOLUME 97.6 fl (81.0-99.0); MEAN CORPUSCULAR HGB 29.9 pg (27.0-31.0); MEAN CORPUSCULAR HGB CONC 30.6 g/dl (33.0-37.0); MONO # 0.6 10*3/uL (0.1-1.0); MONO % 14.8 % (3.0-9.0); NEUT # 2.4 10*3/uL (2.3-7.9); NEUT % 56.3 % (47.0-73.0); PLATELET COUNT AUTOMATED 239 10*3/uL (130-400); RED BLOOD COUNT 2.88 10*6/uL (4.10-5.10); RED CELL DISTRI WIDTH 14.6 % (0-14.5); WHITE BLOOD COUNT 4.3 10*3/uL (4.8-10.8)
[2019-03-17 08:24] LABS: CREATININE 2.56 mg/dL (0.55-1.02); POTASSIUM 4.3 mmol/L (3.5-5.1)
[2019-03-17 09:10] VITALS: BP 124/59
[2019-03-17 09:25] VITALS: BP 150/72
[2019-03-17 09:40] VITALS: BP 147/73
[2019-03-17 09:55] VITALS: BP 156/70
[2019-03-17 10:10] VITALS: BP 155/63
--- NOTE | 2019-03-17 10:10 | NUR ---
iv discontinued. site asymptomatic
[2019-03-18 14:11] LABS: ACID FAST SPEC PROCESSING Tissue Grinding (.)
== END | disposition home or self-care (01) ==
LOC: SDC 03-12 08:00
PROVIDERS: Anesthesiology; Podiatrist
DX: S91.001A Unspecified open wound, right ankle, initial encounter (principal); T84.84XA Pain due to internal orthopedic prosthetic devices, implants and grafts, initial encounter; M86.171 Other acute osteomyelitis, right ankle and foot; J45.909 Unspecified asthma, uncomplicated; K21.9 Gastro-esophageal reflux disease without esophagitis; E11.9 Type 2 diabetes mellitus without complications; F41.9 Anxiety disorder, unspecified; I10 Essential (primary) hypertension; I25.2 Old myocardial infarction; E66.9 Obesity, unspecified; Z68.36 Body mass index [BMI] 36.0-36.9, adult; Z90.710 Acquired absence of both cervix and uterus; Z98.890 Other specified postprocedural states; Z79.899 Other long term (current) drug therapy; X58.XXXA Exposure to other specified factors, initial encounter; Y93.89 Activity, other specified; Y92.89 Other specified places as the place of occurrence of the external cause; Y99.8 Other external cause status; Z82.49 Family history of ischemic heart disease and other diseases of the circulatory system; Z83.3 Family history of diabetes mellitus